=== PATIENT | female | born 1940 | race Caucasian/White ===

== ENCOUNTER 2022-10-28 18:05 | Emergency (ER) | payer MEDICARE, OTHER, SELFPAY ==
[2022-10-28 18:09] VITALS: BP 158/67; PULSE 84; RESP 20; TEMP 36.6; O2SAT 97; BMI 20.3
--- NOTE | 2022-10-28 18:24 | PC.NURSE ---
Pt has dialysis port that has dual lumen in right upper chest. Pt had dialysis today and the blue line is clear but the red line has blood noted in it and the blue cap was loose and pt had small amount of blood coming from cap. Pt and SO concerned as theythought that the blood was coming from the insertion site. Tubing was clamped and blue cap tightened and blood stopped leaking. Pt very relieved at this. Blood was noted still in tube.
--- NOTE | 2022-10-28 18:54 | ED.GENADUL1 ---
HPI - General Adult General Chief complaint: Recheck/Abnormal Lab/Rx Stated complaint: medical devise check Time Seen by Provider: 10/28/22 18:07 Source: patient and family Mode of arrival: walk-in Limitations: no limitations History of Present Illness HPI narrative: patient is in 82-year-old female who presents to the emergency department for bleeding from her dialysis catheter. Patient had dialysis today at noon regularly, she noted just prior to arrival that there was bleeding from the red arterial catheter tubing. On my evaluation, nursing has tightened the end cap to the catheter and bleeding has stopped. There is a small amount of red blood present in the arterial catheter. Clamp is in place. Patient has no other focal medical complaints. Related Data Allergies Allergy/AdvReac Type Severity Reaction Status Date / Time Penicillins Allergy Intermediate Verified 10/28/22 18:17 Review of Systems ROS Constitutional Denies: fever or chills Ears, nose, mouth, and throat Denies: throat pain Cardiovascular Denies: chest pain Respiratory Denies: shortness of breath or cough Gastrointestinal Denies: nausea or vomiting Genitourinary Denies: painful urination Musculoskeletal Denies: back pain Integumentary/Breast Denies: rash Exam Narrative Exam Narrative: Gen.: Awake, alert, in no distress Head: Normocephalic, atraumatic ENT: Moist mucous membranes Respiratory: No respiratory distress, dialysis catheter to the right upper chest with blood in the arterial catheter, no bleeding from the catheter at this time. Venous catheter is clear, no leaking or drainage. Insertion site in the right upper chest with bandage intact, no evidence of removal of the dialysis catheter insertion site or bleeding at the area. Extremities: Moves extremities equally Psych: Normal mood and affect Neuro: No focal neuro deficit Skin: Warm, dry, intact Constitutional Vital Signs, click to edit/add: Last Vital Signs Temp 98 F 10/28/22 18:09 Pulse 84 10/28/22 18:09 Resp 20 10/28/22 18:09 BP 158/67 H 10/28/22 18:09 Pulse Ox 97 10/28/22 18:09 O2 Del Method Room Air 10/28/22 18:09 Course Vital Signs Vital signs: Vital Signs Temperature 98 F 10/28/22 18:09 Pulse Rate 84 10/28/22 18:09 Respiratory Rate 20 07/26/23 18:09 Blood Pressure 158/67 H 10/28/22 18:09 Pulse Oximetry 97 10/28/22 18:09 Oxygen Delivery Method Room Air 10/28/22 18:09 Temperature 98 F 10/28/22 18:09 Pulse Rate 84 10/28/22 18:09 Respiratory Rate 20 10/28/22 18:09 Blood Pressure 158/67 H 10/28/22 18:09 Pulse Oximetry 97 10/28/22 18:09 Oxygen Delivery Method Room Air 10/28/22 18:09 Medical Decision Making MDM Narrative Medical decision making narrative: we discussed the case with dialysis nurse on-call for [facility]. She recommended to prevent clotting in the arterial catheter, aspirate ten mL's of blood from the arterial line, flushed with saline and flushed with heparin at a 1000 unit per mL concentration for a total of 2 mL's flushed in the catheter. This was performed without difficulty, no residual bleeding and the patient is discharged to follow-up with dialysis Center as scheduled for further dialysis in two days. Return to the Emergency Room if symptoms change or worsen. Medical Records Medical records reviewed: Yes I reviewed the patient's medical records Discharge Plan Discharge Chief Complaint: Recheck/Abnormal Lab/Rx Clinical Impression: Encounter for dialysis catheter care Patient Disposition: Home, Self-Care Time of Disposition Decision: 18:47 Condition: Good Instructions: Hemodialysis (DC) Additional Instructions: Follow for regular dialysis care with the dialysis center Stand Alone Forms: Portal Instructions Referrals: Adelina Lizama MD [Primary Care Provider] - 1 week
[2022-10-28] MEDS: HEPARIN SODIUM (PORCINE) 5,000 UNIT/ML VIAL 5000 UNIT IV (19:04)
== END 2022-10-28 19:15 | disposition home or self-care (01) ==
PROVIDERS: Emergency Provider Emergency Medicine; PCP Family Medicine
DX: Z49.01 Encounter for fitting and adjustment of extracorporeal dialysis catheter (principal)
CPT/HCPCS: 96374; 99284

== ENCOUNTER 2022-11-09 13:44 | Outpatient (REF) | payer MEDICARE, SELFPAY ==
[2022-11-09 13:56] LABS: Hemoglobin 12.9 g/dL (12.0-16.0)
== END 2022-11-09 13:45 | disposition home or self-care (01) ==
LOC: LAB 13:44
PROVIDERS: PCP Family Medicine; Visit Provider Internal Medicine Nephrology
DX: K92.1 Melena (principal)
CPT/HCPCS: 36415; 85018

== ENCOUNTER 2023-01-30 16:52 | Emergency (ER) | payer MEDICARE, OTHER, SELFPAY ==
[2023-01-30 16:58] VITALS: BP 87/52; PULSE 77; RESP 20; TEMP 37.1; O2SAT 100; BMI 20.8
--- NOTE | 2023-01-30 17:08 | XR_ITS ---
[address] [address] Patient Name: MEAGHAN HENRY MRN: [id number] date: 1940 Sex: F Assigned Patient Location: ER Current Patient Location: ER Accession/Order Number: [id number] Exam Date: 01/30/2023 17:10 Report Date: 01/30/2023 18:44 At the request of: AFIA SILVA Procedure: XR forearm LT 2V EXAM: XR forearm LT 2V, XR wrist LT min 3V, XR hand LT min 3V HISTORY: pain COMPARISON: None. TECHNIQUE: AP, lateral, radiographs of the forearm labeled left , PA, lateral, oblique radiographs of the wrist left. PA, lateral, oblique radiographs of the hand labeled left FINDINGS: Left forearm: Chondrocalcinosis at the triangular fibrocartilage, at the distal radiocarpal joint, about the carpal row. Surgical clips about the elbow. Demineralization. No acute fracture or dislocation. Olecranon enthesophyte. Left wrist: Chondrocalcinosis at the triangular fibrocartilage about the carpal row and at the radiocarpal joint. Joint space loss and osteophytes of the first carpometacarpal joint. Demineralization. Atherosclerotic vascular calcifications. No acute fracture or dislocation. There is soft tissue swelling about the wrist. Left hand: Chondrocalcinosis at the triangular fibrocartilage about the carpal row and at the radiocarpal joint. Joint space loss and osteophytes of the first carpometacarpal joint. Joint space loss of the DIP joints. Osteophytes of the first interphalangeal joint. Demineralization. Atherosclerotic vascular calcifications. No acute fracture or dislocation. There is soft tissue swelling about the wrist. XR/XR forearm LT 2V IMPRESSION: Left forearm: 1. No acute osseous abnormality. Left wrist: 1. Chondrocalcinosis which can be seen with hypercalcemic states and CPPD arthropathy. 2. Mild degenerative changes of the first carpometacarpal joint. Left hand: 1. No acute osseous abnormality. 2. Mild degenerative change. Electronically authenticated by: LUDMILA MENDOZA Date: 01/30/2023 18:44
--- NOTE | 2023-01-30 17:08 | XR_ITS ---
The [address] [address] Patient Name: MEAGHAN HENRY MRN: [id number] date: 1940 Sex: F Assigned Patient Location: ER Current Patient Location: ER Accession/Order Number: [id number] Exam Date: 01/30/2023 17:10 Report Date: 01/30/2023 18:44 At the request of: AFIA SILVA Procedure: XR wrist LT min 3V EXAM: XR forearm LT 2V, XR wrist LT min 3V, XR hand LT min 3V HISTORY: pain COMPARISON: None. TECHNIQUE: AP, lateral, radiographs of the forearm labeled left , PA, lateral, oblique radiographs of the wrist left. PA, lateral, oblique radiographs of the hand labeled left FINDINGS: Left forearm: Chondrocalcinosis at the triangular fibrocartilage, at the distal radiocarpal joint, about the carpal row. Surgical clips about the elbow. Demineralization. No acute fracture or dislocation. Olecranon enthesophyte. Left wrist: Chondrocalcinosis at the triangular fibrocartilage about the carpal row and at the radiocarpal joint. Joint space loss and osteophytes of the first carpometacarpal joint. Demineralization. Atherosclerotic vascular calcifications. No acute fracture or dislocation. There is soft tissue swelling about the wrist. Left hand: Chondrocalcinosis at the triangular fibrocartilage about the carpal row and at the radiocarpal joint. Joint space loss and osteophytes of the first carpometacarpal joint. Joint space loss of the DIP joints. Osteophytes of the first interphalangeal joint. Demineralization. Atherosclerotic vascular calcifications. No acute fracture or dislocation. There is soft tissue swelling about the wrist. XR/XR wrist LT min 3V IMPRESSION: Left forearm: 1. No acute osseous abnormality. Left wrist: 1. Chondrocalcinosis which can be seen with hypercalcemic states and CPPD arthropathy. 2. Mild degenerative changes of the first carpometacarpal joint. Left hand: 1. No acute osseous abnormality. 2. Mild degenerative change. Electronically authenticated by: LUDMILA MENDOZA Date: 01/30/2023 18:44
--- NOTE | 2023-01-30 17:08 | XR_ITS ---
The [address] [address] Patient Name: MEAGHAN HENRY MRN: [id number] date: 1940 Sex: F Assigned Patient Location: ER Current Patient Location: ER Accession/Order Number: [id number] Exam Date: 01/30/2023 17:10 Report Date: 01/30/2023 18:44 At the request of: AFIA SILVA Procedure: XR hand LT min 3V EXAM: XR forearm LT 2V, XR wrist LT min 3V, XR hand LT min 3V HISTORY: pain COMPARISON: None. TECHNIQUE: AP, lateral, radiographs of the forearm labeled left , PA, lateral, oblique radiographs of the wrist left. PA, lateral, oblique radiographs of the hand labeled left FINDINGS: Left forearm: Chondrocalcinosis at the triangular fibrocartilage, at the distal radiocarpal joint, about the carpal row. Surgical clips about the elbow. Demineralization. No acute fracture or dislocation. Olecranon enthesophyte. Left wrist: Chondrocalcinosis at the triangular fibrocartilage about the carpal row and at the radiocarpal joint. Joint space loss and osteophytes of the first carpometacarpal joint. Demineralization. Atherosclerotic vascular calcifications. No acute fracture or dislocation. There is soft tissue swelling about the wrist. Left hand: Chondrocalcinosis at the triangular fibrocartilage about the carpal row and at the radiocarpal joint. Joint space loss and osteophytes of the first carpometacarpal joint. Joint space loss of the DIP joints. Osteophytes of the first interphalangeal joint. Demineralization. Atherosclerotic vascular calcifications. No acute fracture or dislocation. There is soft tissue swelling about the wrist. XR/XR hand LT min 3V IMPRESSION: Left forearm: 1. No acute osseous abnormality. Left wrist: 1. Chondrocalcinosis which can be seen with hypercalcemic states and CPPD arthropathy. 2. Mild degenerative changes of the first carpometacarpal joint. Left hand: 1. No acute osseous abnormality. 2. Mild degenerative change. Electronically authenticated by: LUDMILA MENDOZA Date: 01/30/2023 18:44
--- NOTE | 2023-01-30 17:08 | ED.UPPEXIN1 ---
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 as well as another 1 in the right and the patient have dialysis through the Jonathan catheter Related Data Home Medications Medication Instructions Recorded Confirmed amlodipine 2.5 mg tablet 2.5 mg PO Q24H 01/30/23 01/30/23 apixaban 2.5 mg tablet (Eliquis) 2.5 mg PO Q12H 01/30/23 01/30/23 furosemide 40 mg tablet 40 mg PO Q12H 01/30/23 01/30/23 hydrocodone 5 mg-acetaminophen 325 0.5 tab PO Q12H 01/30/23 01/30/23 mg tablet levothyroxine 25 mcg tablet 25 mcg PO Q24H 01/30/23 01/30/23 rosuvastatin 5 mg tablet 5 mg PO Q24H 01/30/23 01/30/23 sevelamer carbonate 800 mg tablet 800 mg PO Q24H 01/30/23 01/30/23 Previous Rx's Medication Instructions Recorded prednisone 20 mg tablet 40 mg PO DAILY 5 days #10 tabs 01/30/23 Allergies Allergy/AdvReac Type Severity Reaction Status Date / Time Penicillins Allergy Intermediate Verified 10/28/22 18:17 Review of Systems ROS Status of ROS 10 or more systems reviewed and unremarkable except as noted in history and below Exam Narrative Exam Narrative: Nurses notes and vital signs reviewed and patient is not hypoxic. General: Well-appearing and in no apparent distress. Skin: Warm, dry, no pallor noted. No rash. Head: Normocephalic, atraumatic. Neck: Supple, non-tender. Eye: Pupils are equal, round and EOMI. No scleral icterus. Ears, Nose, Mouth, and Throat: TM are clear, no nasal mucosal hypertrophy. Oral mucosa is moist, no posterior oropharynx erythema, uvula is mid-line Cardiovascular: Regular Rate and Rhythm without murmur, gallop or rub. Respiratory: No accessory muscle use or respiratory distress. Lungs are clear to auscultation, no wheezing, rales or rhonchi Chest Wall: no tenderness Back: No midline thoracic or lumbar vertebral tenderness. No CVA tenderness Musculoskeletal: There is tenderness upon palpation of the left wrist mostly at the distal aspect of the forearm there is no ecchymosis there is mild edema and there is a good radial pulse with no vascular injury and good capillary refill GI: Abdomen is soft, non-distended. Normal bowel sounds. No masses appreciated. No tenderness to palpation. No rebound, guarding, or rigidity noted. Neurological: A&O x4. No cranial nerve dysfunction observed. No truncal ataxia. Moves all extremities. Sensation intact. Psychiatric: Cooperative and interactive. Normal mood and affect. Constitutional Vital Signs, click to edit/add: Last Vital Signs Temp 98.8 F 01/30/23 16:58 Pulse 86 01/30/23 18:58 Resp 16 01/30/23 18:58 BP 170/96 H 01/30/23 18:58 Pulse Ox 96 01/30/23 18:58 O2 Del Method Room Air 01/30/23 16:58 Course Vital Signs Vital signs: Vital Signs Temperature 98.8 F 01/30/23 16:58 Pulse Rate 77 01/30/23 16:58 Respiratory Rate 20 01/30/23 16:58 Blood Pressure 87/52 L 01/30/23 16:58 Pulse Oximetry 100 01/30/23 16:58 Oxygen Delivery Method Room Air 01/30/23 16:58 Temperature 98.8 F 01/30/23 16:58 Pulse Rate 86 01/30/23 18:58 Respiratory Rate 16 01/30/23 18:58 Blood Pressure 170/96 H 01/30/23 18:58 Pulse Oximetry 96 01/30/23 18:58 Oxygen Delivery Method Room Air 01/30/23 16:58 MDM - Extremity Injury (Upper) MDM Narrative Medical decision making narrative: The patient x-ray of the left wrist hand and the forearm showed no acute pathology Right now the patient will be treated mostly as possible arthritis. She had Toradol initially in the ER after which her pain is better she will have a Velcro splint applied and she was started on prednisone she will continue taking her pain meds at home Referred to orthopedic as outpatient case needed The patient is to follow up with primary care physician in next 2-3 days or to return to the emergency department should any of the signs or symptoms worsen or new symptoms develop. The patient agrees with the following Diagnosis and Treatment plan and the patient will be discharged home. Discharge Plan Discharge Chief Complaint: Extremity Injury, Upper Clinical Impression: Arthritis of wrist Time of Disposition Decision: 18:55 Condition: Good Prescriptions / Home Meds: New prednisone 20 mg tablet 40 mg PO DAILY 5 Days Qty: 10 0RF No Action amlodipine 2.5 mg tablet 2.5 mg PO Q24H Eliquis 2.5 mg tablet 2.5 mg PO Q12H furosemide 40 mg tablet 40 mg PO Q12H hydrocodone-acetaminophen 5-325 mg tablet 0.5 tab PO Q12H levothyroxine 25 mcg tablet 25 mcg PO Q24H rosuvastatin 5 mg tablet 5 mg PO Q24H sevelamer carbonate 800 mg tablet 800 mg PO Q24H Instructions: Arthritis (ED) Stand Alone Forms: Portal Instructions Referrals: Adelina Lizama MD [Primary Care Provider] - 1 week Eliseo Navarro MD [Physician] - 1 week
[2023-01-30] MEDS: KETOROLAC TROMETHAMINE 30 MG/ML VIAL 15 MG IM (17:21)
[2023-01-30 17:41] VITALS: BP 145/96; PULSE 76; RESP 18; O2SAT 96
[2023-01-30 18:58] VITALS: BP 170/96; PULSE 86; RESP 16; O2SAT 96
== END 2023-01-30 19:09 | disposition home or self-care (01) ==
PROVIDERS: Emergency Provider Emergency Medicine; PCP Family Medicine
DX: M19.032 Primary osteoarthritis, left wrist (principal); Z99.2 Dependence on renal dialysis; Z79.899 Other long term (current) drug therapy; Z79.890 Hormone replacement therapy
CPT/HCPCS: 73090; 73110; 73130; 96372; 99285

== ENCOUNTER 2023-04-16 12:55 | Outpatient (OUT) | payer MEDICARE, OTHER, SELFPAY ==
--- OUTSIDE RECORDS SUMMARY | 2023-04-16 13:02 | XMS_ITS | CCD ---
Author Name Unknown Address [address] [place] [address] Organization [facility] Team Providers Care Expressive Therapist Name Role Phone Aurelio Wheeler Unavailable Unavail able Liam, Aurelio Snowden Unavailable Unavail able Felipe Reyes Unavailable Unavailable Luisito Jones Unavailable Unavailable Liam, Aurelio Snowden Unavailable Unavail able Liam, Aurelio Snowden Unavailable Unavail able Felipe Reyes Unavailable Unavailable MD Felipe Reyes Primary Care Provider DO Delgado Eagle Emergency Provider MD Felipe Reyes Primary Care Provider DO Delgado Eagle Emergency Provider MD Ken Haas Attending Provider MD Eva Goodman Other Provider FELIPE REYES Primary Care Physician Delfino Chan Attending Unavailable MD Felipe Reyes Primary Care Provider Roxanne Mon Unavailable Ken Haas Unavailable MD Felipe Reyes Primary Care Provider MARIPOSA Yancey Emergency Provider MD Дмитрий Her Admit Provider MD Дмитрий Her Attending Provider MD Uma Zhang Other Provider MD Ambar Galvan Other Provider MD Felipe Reyes Primary Care Provider MARIPOSA Yancey Emergency Provider MD Дмитрий Her Admit Provider MD Leatha Imad Other Provider MD Mandy Aziz Other Provider MD Aj Ragland Attending Provider MD Ken Haas Attending Provider Isa Zhangad Unavailable JUNC, DR BRICE Admitting Unavailable MISC, DR BRICE Attending Unavailable MISC, DR BRICE Consulting Unavailable MISC, DR BRICE Primary Care Unavailable MISC, DR BRICE Primary Care Unavailable ROSANNE, EVA Admitting Unavailable ROSANNE, EVA Attending Unavailable ROSANNE, EVA Consulting Unavailable MISC, DR BRICE Primary Care Unavailable BAKHOUS, RUTHYIZ Admitting Unavailable BAKGEEN, AMBAR Attending Unavailable MANDY, AMBAR Consulting Unavailable KANG MCELROY Attending Unavailable KANG MCELROY Consulting Unavailable MISC, DR BRICE Primary Care Unavailable KANG MCELROY Admitting Unavailable Renae Ayers Consulting Unavailable ZOILA GREGORY Consulting Unavailable ERIC, DR FELIPE Fish Primary Care Unavailable SHAYLAEBEVGENY, DR YARA Smart Consulting Unavailable PAY ., DR KO Admitting Unavailable PAY ., DR KO Attending Unavailable PAY ., DR KO Consulting Unavailable MADISON NARANJO Consulting Unavailable ZIEBER, DR YARA Smart Consulting Unavailable MISC, DR BRICE Primary Care Unavailable HERMILO Matthew, WES Admitting Unavailable HERMILO Matthew, WES Attending Unavailable HERMILO Matthew, WES Consulting Unavailable MD Felipe Reyes Primary Care Provider MD Ken Haas Attending Provider Ken Haas Admitting Unavailable Rosanne, Eva Consulting Unavailable Felipe Reyes Primary Care Unavailable Ken Haas Attending Unavailable Ken Haas Admshadi Unavailable Felipe Reyes Primary Care Unavailable Ken Haas Attending Unavailable Felipe Reyes Primary Care Unavailable Ken Haas Attending Unavailable Ken Haas Admitting Unavailable Ken Haas Admitting Unavailable Felipe Reyes Primary Care Unavailable Ken Haas Attending Unavailable Felipe Reyes Primary Care Unavailable Ken Haas Attending Unavailable Ken Haas Admitting Unavailable Ken Haas Admitting Unavailable Felipe Reyes Primary Care Unavailable Ken Haas Attending Unavailable Delgado Eagle Attending Unavailable Felipe Reyes Primary Care Unavailable Delgado Eagle Admitting Unavailable Ken Haas Admitting Unavailable Felipe Reyes Primary Care Unavailable Ken Haas Attending Unavailable Ken Haas Admitting Unavailable Felipe Reyes Primary Care Unavailable Ken Haas Attending Unavailable Aj Ragland Attending Unavailable Asaad, Imad Consulting Unavailable Дмитрий Her Admitting Unavailable Felipe Reyes Primary Care Unavailable Ambar Galvan Consulting Unavailable Allergies Allergy Classification Reported Allergen(s) Allergy Type Date of Onset Reaction(s) Facility (3 sources) penicillin; Translations: [penicillin] Drug Allergy AOF, Unknown cause [facility] Repository (12 sources) Penicillins; Translations: [Penicillins] Allergy to substance 3 [facility] (10 sources) Penicillin G Drug Allergy [facility] Dial2Do Other Medications Current Medications Medication Drug Class(es) Dates Sig (Normalized) Sig (Original) acetaminophen 325 mg oral tablet (8 sources) Start: 03-05-2022 take 2 tablets by mouth every four hours Acetaminophen (Tylenol) 325 mg Tablet Active 650 MG PO Q4H March 05, 2022 1:00am acetaminophen 325 mg / HYDROcodone bitartrate 5 mg oral tablet (20 sources) Opioid Agonist Start: 09-03-2022 take 1 tablet by mouth every four hours Hydrocodone-Acetami nophen (Riley) 5-325 mg Tablet Active 1 TAB PO Q4H September 03, 2022 12:00am Start: 12-22-2018 End: 03-05-2022 take 1 tablet by mouth every six hours Hydrocodone-Acetaminophen Discontinued 1 TAB PO Q6H 20 5 December 22, 2018 March 05, 2022 4:46pm Start: 12-22-2018 End: 01-12-2019 Hydrocodone-Acetaminophen Di scontinued 5 MG PO December 22, 2018 12:00am January 12, 2019 9:56am Start: 12-13-2018 End: 01-12-2019 take 5-325 mg by mouth twice daily Hydrocodone-Acetaminophen Discontinued 5 - 325 MG PO Twice daily December 13, 2018 12:00am January 12, 2019 9:57am amLODIPine 5 mg oral tablet (5 sources) Dihydropyridine Calcium Channel Julio Start: 07-24-2022 take 5 mg by mouth once daily Amlodipine Active 5 MG PO Daily July 24, 2022 12:00am calcitriol 0.37815 mg oral capsule (20 sources) Vitamin D3 Analog Start: 09-03-2022 take 0.25 ug by mouth once daily Calcitriol Active 0.25 MCG PO Daily September 03, 2022 12:00am Start: 12-13-2018 End: 09-03-2022 take 0.25 ug by mouth once daily in the morning Calcitriol Discontinued 0.25 MCG PO Every morning December 13, 2018 12:00am September 03, 2022 6:08am Start: 12-13-2018 take 0.5 ug by mouth once afshan y Calcitriol Active 0.5 MCG PO Daily December 12, 2018 11:00pm Start: 09-14-2017 calcitriol 0.2 5 mcg Cap 0.25 microgram = 1 cap(s), Oral, Daily, Refills(s) 0, Prophylaxis Start Date: 09/14/17 Status: Ordered take 1 capsule by [facility] every twenty-four hours Calcitriol 0.5 MCG 1 capsule Orally Once a day for 90 day(s) Active cinnamon preparation 500 mg oral tablet (10 sources) Non-Standardized Food Allergenic Extract take 500 mg by mouth once daily Cinnamon 500 MG as directed Orally ONCE A DAY Active diclofenac sodium 0.01 mg/mg topical gel (6 sources) Nonsteroidal Anti-inflammatory Drug Start: 04-22-19 apply 2 g topically four times daily Diclofenac Sodium Active 2 GM TOPICAL Four times daily April 22, 2022 1:00am right hip and right knee Start: 04-22-2022 apply 1 g topically four times daily Diclofenac Sodium Active 1 GM TOPICAL Four times daily April 22, 2022 1:00am right hip and right knee docusate sodium 100 mg oral capsule (8 sources) Start: 03-05-2022 take 1 capsule by mouth twice daily Docusate Sodium (Colace) 100 mg Capsule Active 100 MG PO Twice daily March 05, 2022 1:00am furosemide 40 mg oral tablet (1 source) Loop Diuretic Start: 11-26-2022 take 40 mg by mouth twice daily Furosemide Active 40 MG PO Twice daily November 26, 2022 12:00am levothyroxine sodium 0.025 mg oral tablet (9 sources) l-Thyroxine Start: 03-05-2022 take 25 ug by mouth once daily Levothyroxine Active 25 MCG PO Daily March 05, 2022 1:00am Start: 09-15-2017 take 1 tablet by kathryn th once daily Synthroid 50 mcg Tab 50mcg, Oral, Daily, Refills(s) 0, Thyroid Start Date: 09/15/17 Status: Ordered lidocaine 0.04 mg/mg medicated patch (8 sources) Antiarrhythmic, Amide Local Anesthetic Start: 03-05-2022 apply 1 dose topically twice daily Lidocaine (Aspercreme (Lidocaine)) 4 % Adhesive Patch,Medicated Active 1 PATCH TOPICAL Twice daily March 05, 2022 1:00am magnesium oxide 400 mg oral tablet (5 sources) take 1 tablet by mouth every twenty-four hours Magnesium Oxide 400 MG 1 Tablet Orally Once a day for 90 day(s) Active meclizine hydrochloride 25 mg oral tablet (11 sources) Antiemetic Start: 09-14-2017 take 25 mg by mouth once daily as needed for nausea meclizine 25 mg, Oral, Daily, PRN as needed for nausea/vomiting, Refills(s) 0, Nausea Start Date: 09/14/17 Status: Ordered take 1 tablet by kathryn th every eight hours as needed Meclizine HCl 25 MG 1 tablet as needed Orally EVERY 8 HRS PRN Active meloxicam 15 mg oral tablet (1 source) Nonsteroidal Anti-inflammatory Drug Start: 09-14-2017 meloxicam 15 mg, Oral, Refills(s) 0, Inflammation Start Date: 09/14/17 Status: Ordered methocarbamol 500 mg oral tablet (10 sources) Muscle Relaxant take 2 tablets by mouth every eight hours Methocarbamol 500 MG 2 TABLETS Orally THREE TIMES A DAY Active Multi Vitamin/Minerals (10 sources) Multi Vitamin/Minerals Active nitroglycerin 0.4 mg sublingual tablet (8 sources) Nitrate Vasodilator Start: 03-05-2022 Nitroglycerin Active 0.4 MG SUBLINGUAL Q5M March 05, 2022 1:00am do not exceed 3 doses per episode omeprazole 40 mg delayed release oral capsule (1 source) Proton Pump Inhibitor Start: 09-15-2017 take 1 capsule by mouth once daily omeprazole 40 mg Cap-DR 40 mg = 1 cap(s), Oral, Daily, # 30 cap(s), Refills(s) 2, Pharmacy: [facility]/pharmacy #[id number] Start Date: 09/15/17 Status: Ordered rosuvastatin calcium 5 mg oral tablet (13 sources) HMG-CoA Reductase Inhibitor Start: 03-05-2022 take 5 mg by mouth once daily at bedtime Rosuvastatin Active 5 MG PO Daily at bedtime March 05, 2022 1:00am sevelamer carbonate 800 mg oral tablet (13 sources) Phosphate Binder Start: 03-05-2022 take 1600 mg by mouth at mealtime Sevelamer Carbonate Active 1600 MG PO before meals March 05, 2022 1:00am must administer with a meal/food Start: 03-05-2022 take 800 mg by mouth three times daily at mealtime Sevelamer Carbonate Active 800 MG PO Three times daily March 05, 2022 12:00am must administer with a meal/food Sevelamer Carbon ate Active Vitamin D3 (1 source) Start: 09-14-2017 Vitamin D3 50, 000 International_Unit, Oral, qWeek, Refills(s) 0, Prophylaxis Start Date: 09/14/17 Status: Ordered Completed/Discontinued Medications Medication Drug Class(es) Dates Sig (Normalized) Sig (Original) acetaminophen 325 mg / oxyCODONE hydrochloride 5 mg oral tablet (11 sources) Opioid Agonist Start: 04-22-2022 End: 04-22-2022 Oxycodone-Acetamino phen Discontinued TAB TABLET April 22, 2022 1:00am April 22, 2022 8:22am Start: 03-20-2022 take 1 tablet by kathryn th every six hours oxyCODONE-Acetaminophen 5-325 MG 1 table t as needed Orally every 6 hrs for 7 days Mar, Active [id number] actuat albuterol 0.09 mg/actuat metered dose inhaler (10 sources) beta2-Adrenergic Agonist Start: 12-20-2018 End: 03-05-2022 take 1 puff(s) by inhalation every four hours Albuterol Sulfate (Proair Hfa) 90 mcg/actuation Hfa Aerosol Inhaler Discontinued 2 PUFF INHALATION Every 4 hours December 20, 2018 12:00am March 05, 2022 4:44pm aluminum hydroxide 80 mg/ml / magnesium hydroxide 80 mg/ml / simethicone 8 mg/ml oral suspension (8 sources) Start: 03-05-2022 End: 04-22-2022 take 1 mL by mouth four times daily Alum-Mag Hydroxide-Simeth Discontinued 30 ML PO Four times daily March 05, 2022 1:00am April 22, 2022 8:22am apixaban 2.5 mg oral tablet (20 sources) Factor Xa Inhibitor Start: 03-05-2022 End: 09-03-2022 Apixaban (Eliquis) 2.5 mg tablet Discontinued MG TABLET July 24, 2022 12:00am September 03, 2022 6:07am atropine sulfate 0.025 mg / diphenoxylate hydrochloride 2.5 mg oral tablet (20 sources) Anticholinergic, Cholinergic Muscarinic Antagonist, Antidiarrheal Start: 12-22-2018 End: 01-12-2019 take 2.5 mg by mouth every eight hours Diphenoxylate-Atr opine Discontinued 2.5 MG PO Every 8 hours December 22, 2018 12:00am January 12, 2019 9:59am Start: 12-13-2018 End: 03-05-2022 take 1 tablet by mouth four times daily Diphenoxylate-Atropine Discontinued 1 TA B PO Four times daily December 13, 2018 12:00am March 05, 2022 4:45pm Start: 09-14-2017 atropine-diphe noxylate 2.5-0.025mg, Oral, Refill(s) 0, Spasm Start Date: 09/14/17 Status: Ordered calcium acetate 667 mg oral capsule (20 sources) Start: 12-22-2018 End: 03-05-2022 take 667 mg by mouth once daily Calcium Acetate(Phosphat Bind) Discontinued 667 MG PO Daily December 22, 2018 12:00am March 05, 2022 4:46pm Start: 12-13-2018 End: 12-20-2018 take 667 mg by mouth three times daily Calcium Acetate(Phosphat Bind) Discontinued 667 MG PO Three times daily December 13, 2018 12:00am December 20, 2018 2:36pm cinnamon bark 500 mg oral capsule (10 sources) Start: 12-20-2018 End: 03-05-2022 take 1 capsule by mouth once daily Cinnamon Bark (Cinnamon) 500 mg Capsule Discontinued 500 MG PO Daily December 20, 2018 12:00am March 05, 2022 4:45pm Multivitamin,Tx-[place] als (Multi-Vitamin Hp/Minerals) Capsule (10 sources) Start: 12-20-2018 End: 03-05-2022 take 1 capsule by mouth once daily Multivitamin,Tx-Minerals (Multi-Vitamin Hp/Minerals) Capsule Discontinued 1 CAP PO Daily December 20, 2018 12:00am March 05, 2022 4:45pm Start: 12-20-2018 End: 03-05-2022 take 1 capsule by mouth once daily Multivitamin,Tx-Minerals (Multi-Vitamin Hp/Minerals) Capsule Discontinued 1 CAP PO Daily December 19, 2018 11:00pm March 05, 2022 3:45pm Start: 12-20-2018 take 1 capsule by mo ut once daily Multivitamin,Tx-Minerals (Multi-Vitamin Hp/Minerals) Capsule Active 1 CAP PO Daily December 19, 2018 11:00pm Start: 12-20-2018 take 1 capsule by mo uth once daily Multivitamin,Tx-Minerals (Multi-Vitamin Hp/Minerals) Capsule Active 1 CAP PO Daily December 20, 2018 12:00am oxyCODONE hydrochloride 10 mg oral tablet (8 sources) Opioid Agonist Start: 03-05-2022 End: 04-22-2022 take 10 mg by mouth at bedtime Oxycodone Discontinued 10 MG PO Bedtime March 05, 2022 1:00am April 22, 2022 8:21am polyethylene glycol 3350 93898 mg powder for oral solution (4 sources) Osmotic Laxative Start: 07-27-2022 End: 09-03-2022 Polyethylene Glycol 3350 (Miralax) 17 gram/dose powder Discontinued 4 GM PO Daily 119 July 27, 2022 12:00am September 03, 2022 6:08am polyethylene glycol 3350 [id number] mg / potassium chloride 2970 mg / sodium bicarbonate 6740 mg / sodium chloride 5860 mg / sodium sulfate 27274 mg powder for oral solution (6 sources) Osmotic Laxative Start: 08-06-2022 take 236 g by mouth once daily Golytely 236 GM as directed Orally ONCE DAILY for 1 days August, Not-Taking PROCRIT INJECTION - 1000 units (20 sources) Start: 02-16-2019 PROCRIT INJECT ION - 1000 units Feb, 1000 U Start: 02-02-2019 PROCRIT INJECT ION - 1000 units Jan, 1000 U Start: 01-19-2019 PROCRIT INJECT ION - 1000 units Jan, 1000 U Start: 12-08-2018 PROCRIT INJECT ION - 1000 units Dec, 1000 U sodium bicarbonate 325 mg oral tablet (15 sources) Start: 01-12-2019 End: 03-05-2022 take 1 tablet by mouth twice daily Sodium Bicarbonate Discontinued 1 TAB PO Twice daily January 12, 2019 12:00am March 05, 2022 4:45pm take 2 tablets by mo uth every eight hours Sodium Bicarbonate 650 MG 2 Tablet Orall y tid for 90 day(s) Active vitamin e 450 mg oral capsule (10 sources) Start: 12-22-2018 End: 03-05-2022 take 1000 [IU] by mouth once daily Vitamin E Discontinued 1000 UNIT PO Daily December 22, 2018 12:00am March 05, 2022 4:46pm zolpidem tartrate 10 mg oral tablet (16 sources) gamma-Aminobuty nirali Acid-ergic Agonist Start: 09-14-2017 End: 09-03-2022 take 10 mg by mouth once daily at bedtime Zolpidem Discontinued 10 MG PO Daily at bedtime December 13, 2018 12:00am September 03, 2022 6:08am take 1 tablet by kathryn every twenty-four hours Zolpidem Tartrate 5 MG 1 tablet at bedtime Orally Once a day Active Problems Active Problems Problem Classification Problem Date Documented Date Episodic/Chronic Asthma (10 sources) Asthma; Translations: [Asthma, unspecified] Chronic Chronic kidney disease (20 sources) Anemia of renal disease; Translations: [Chronic kidney disease, unspecified] Onset: 2 03-20-2022 Chronic Chronic kidney disease (1 source) Chronic kidney disease; Translations: [Hypertensive chronic kidney disease with stage 5 chronic kidney disease or end stage renal disease] Onset: 2 Complication of device; implant or graft (1 source) Hemorrhage due to any device, implant AND/OR graft; Translations: [Hemorrhage due to vascular prosthetic devices, implants and grafts, initial encounter] Onset: 3 Chronic Coronary atherosclerosis and other heart disease (1 source) Atherosclerotic heart disease of [place] coronary artery without angina pectoris; Translations: [ASHD AUGUSTINE CA W/O ANGINA PECTORIS] Onset: 3 Chronic Deficiency and other anemia (2 sources) Anemia in chronic kidney disease; Translations: [ANEMIA IN CHRONIC KIDNEY DISEASE] Onset: 2 Chronic Deficiency and other anemia (9 sources) Anemia; Translations: [Anemia, unspecified] 07-24-2022 Episodic Delirium, dementia, and amnestic and other cognitive disorders (1 source) Unspecified dementia without behavioral disturbance; Translations: [UNSP YANET UNS SEV W/O DSTRB ANXTY] Onset: 3 Chronic E Codes: Fall (2 sources) Fall on same level from slipping, tripping and stumbling with subsequent striking against other object, initial encounter; Translations: [Fall from bed, initial encounter] Onset: 2 Episodic E Codes: Unspecified (1 source) Activity, walking, marching and hiking; Translations: [ACTIVITY WALKING MARCHING AND HIKING] Onset: 3 Episodic Esophageal disorders (10 sources) Esophagitis; Translations: [Esophagitis, unspecified] Episodic Essential hypertension (7 sources) Hypertensive disorder; Translations: [Essential (primary) hypertension] Onset: 3 07-25-2022 Chronic Fluid and electrolyte disorders (10 sources) Hyperkalemia; Translations: [Hyperkalemia] 12-20-2018 Episodic Gastrointestinal hemorrhage (1 source) Gastrointestinal hemorrhage; Translations: [Gastrointestinal hemorrhage, unspecified] Onset: 3 Hypertension with complications and secondary hypertension (10 sources) 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; Translations: [Hypertensive chronic kidney disease with stage 5 chronic kidney disease or end stage renal disease] Chronic Nonspecific chest pain (10 sources) Non-cardiac chest pain; Translations: [Other chest pain] Episodic Other aftercare (1 source) Other retirement (current) drug therapy; Translations: [OTH TOOL CRIB ATTENDANT CURRENT DRUG THERAPY] Onset: 3 Episodic Other aftercare (1 source) group home (current) use of anticoagulants; Translations: [TOOL CRIB ATTENDANT CURRNT USE ANTICOAGULANTS] Onset: 3 Episodic Other circulatory disease (7 sources) History of cardiovascular surgery; Translations: [Presence of other vascular implants and grafts] 03-20-2022 Chronic Other circulatory disease (3 sources) Presence of other vascular implants and grafts; Translations: [Other postprocedural status] Onset: 2 03-20-2022 Chronic Other circulatory disease (4 sources) Arteriovenous fistula; Translations: [Arteriovenous fistula, acquired] Chronic Other circulatory disease (1 source) Arteriovenous fistula, acquired Chronic Other connective tissue disease (4 sources) Pain in right arm; Translations: [PAIN IN RIGHT ARM] Onset: 3 Episodic Other diseases of kidney and ureters (17 sources) Secondary hyperparathyroidism; Translations: [Secondary hyperparathyroidism of renal origin] 03-20-2022 Chronic Other diseases of kidney and ureters (5 sources) Secondary hyperparathyroidism of renal origin; Translations: [Secondary hyperparathyroidism (of renal origin)] Onset: 2 03-20-2022 Chronic Other gastrointestinal disorders (4 sources) Diarrhea; Translations: [Diarrhea, unspecified] 07-25-2022 Episodic Other injuries and conditions due to external causes (3 sources) Unspecified injury of head, initial encounter; Translations: [UNSPECIFIED INJURY HEAD INITIAL ENC] Onset: 3 Episodic Other nervous system disorders (7 sources) Postoperative pain ; Translations: [Other acute postprocedural pain] 03-20-2022 Episodic Other nutritional; endocrine; and metabolic disorders (10 sources) Hypomagnesemia; Translations: [Hypomagnesemia] Chronic Other nutritional; endocrine; and metabolic disorders (10 sources) Hyperphosphatemia; Translations: [Other disorders of phosphorus metabolism] Chronic Other nutritional; endocrine; and metabolic disorders (4 sources) Weight loss; Translations: [Abnormal weight loss] 07-25-2022 Episodic Spondylosis; intervertebral disc disorders; other back problems (1 source) Spondylosis without myelopathy or radiculopathy, lumbar region; Translations: [SPONDYLS W/O MYELO-/RADICULOP LUMB] Onset: 3 Chronic Superficial injury; contusion (2 sources) Contusion of scalp, initial encounter; Translations: [Contusion of right hip, initial encounter] Onset: 3 Episodic Unclassified (1 source) Other specified complication of vascular prosthetic devices, implants and grafts, initial encounter; Translations: [Other specified complication of vascular prosthetic devices, implants and grafts, initial encounter] Onset: 3 Unclassified (1 source) Encounter for preprocedural laboratory examination; Translations: [Encounter for preprocedural laboratory examination] Onset: 2 Unclassified (1 source) Encounter for other preprocedural examination; Translations: [Encounter for other preprocedural examination] Onset: 2 Past or Other Problems Problem Classification Problem Date Documented Da te Episodic/Chronic Bacterial infection; unspecified site (4 sources) Bacteremia; Translations: [BACTEREMIA] Onset: 01-19-2022 Episodic Deficiency and other anemia (6 sources) Anemia, unspecified; Translations: [Anemia, unspecified] Onset: 07-26-2022 07-24-2022 Episodic Gastrointestinal hemorrhage (7 sources) Hematochezia; Translations: [Melena] Onset: 07-26-2022 07-25-2022 Episodic Other gastrointestinal disorders (3 sources) Diarrhea, unspecified; Translations: [Diarrhea] Onset: 07-26-2022 07-27-2022 Episodic Other non-traumatic joint disorders (3 sources) Pain in left knee; Translations: [PAIN IN LEFT KNEE] Onset: 02-25-2022 Episodic Other non-traumatic joint disorders (1 source) Effusion, left knee; Translations: [EFFUSION LEFT KNEE] Onset: 03-03-2022 Episodic Other nutritional; endocrine; and metabolic disorders (3 sources) Abnormal weight loss; Translations: [Loss of weight] Onset: 07-26-2022 07-27-2022 Episodic Other screening for suspected conditions (not mental disorders or infectious disease) (1 source) Abnormal finding of blood chemistry, unspecified; Translations: [Abnormal finding of blood chemistry, unspecified] Onset: 01-09-2022 Episodic Sprains and strains (1 source) Sprain of unspecified site of left knee, initial encounter; Translations: [SPRAIN UNS SITE LT KNEE INITIAL] Onset: 03-03-2022 Episodic Results Test Name Value Interpretation Reference Range Facility Basic Metabolic Panelon 08 Anion gap [Moles/Vol] 13.9 mmol/L Normal 6.0-15.0 [facility] Comment on above: Performed By: #### C BC #### [facility] [address] [place] [address] [place] Calcium [Mass/Vol] 9.1 mg/dL Normal 8.6-10.3 [facility] Comment on above: Performed By: #### C BC #### [facility] [address] [place] [address] [place] Chloride [Moles/Vol] 94 mmol/L Low 98-107 [facility] Comment on above: Performed By: #### C BC #### [facility] [address] CO2 [Moles/Vol] 25.8 mmol/L Normal 21.0-31.0 [facility] Comment on above: Performed By: #### C BC #### [facility] [address] Creatinine [Mass/Vol] 3.51 mg/dL High 0.60-1.20 [facility] Comment on above: Performed By: #### C BC #### [facility] [address] [place] [address] [place] Creatinine Clr Calc Pharmacy 9.04 [facility] Comment on above: Result Comment: PERF ORMED BY: [place] [address] PATHOLOGIST DO ALL OPERATOR XAVIER PINEDA M.D. Performed By: #### C BC #### [facility] [address] [place] [address] [place] GFR/1.73 sq M.predicted MDRD (S/P/Bld) [Vol rate/Area] 12.389 mL/min/{1.73_m2} Normal [facility] Comment on above: Performed By: #### C BC #### [facility] [address] Glucose [Mass/Vol] 74 mg/dL Normal 70-100 [facility] Comment on above: Result Comment: [place] Glucose Reference Range is dependent on time and content of last meal. Glucose of more than 200 mg/dL in a nonstressed, ambulatory subject supports the diagnosis of Diabetes Mellitus. ADA recommended reference range Performed By: #### C BC #### [facility] [address] [place], [place] [address] [place] Potassium [Moles/Vol] 3.7 mmol/L Normal 3.5-5.1 [facility] Comment on above: Performed By: #### C BC #### [facility] [address] Sodium [Moles/Vol] 130 mmol/L Low 136-145 [facility] Comment on above: Performed By: #### C BC #### [facility] [address] Urea nitrogen [Mass/Vol] 26 mg/dL High 7-25 [facility] Comment on above: Performed By: #### C BC #### [facility] [address] Basophils Auto (Bld) [#/Vol] Ordered By: Nelson Siu on 11-26-2022 Basophils (Bld) [#/Vol] 0.1 10*3/uL 0.0-0.2 [facility] Basophils/100 WBC Auto (Bld) Ordered By: Nelson Siu on 11-26-2022 Basophils/100 WBC (Bld) 0.8 % . F [facility] Calcium [Mass/volume] in Ser um or PlasmaOrdered By: Nelson Siu on 11-26-2022 Calcium [Mass/Vol] 9.1 mg/dL 8.6-10.3 [facility] Carbon dioxide, total [Moles /volume] in Serum or PlasmaOrdered By: Nelson Siu on 11-26-2022 CO2 [Moles/Vol] 25.8 mmol/L 21.0-31.0 [facility] Chloride [Moles/volume] in S olga or PlasmaOrdered By: Nelson Siu on 11-26-2022 Chloride [Moles/Vol] 94 mmol/L 98-107 [facility] [place] Complete Blood Count Auto Di ffon 11-26-2022 Basophils (Bld) [#/Vol] 0.1 10*3/uL Normal 0.0-0.2 [facility] Comment on above: Result Comment: PERF ORMED BY: [place] [address] PATHOLOGIST DO ALL OPERATOR XAVIER PINEDA M.D. Performed By: #### C BC #### [address] Basophils/100 WBC (Bld) 0.8 % Normal . [facility] Comment on above: Performed By: #### C BC #### [address] Eosinophils (Bld) [#/Vol] 0.0 10*3/uL Normal 0.0-0.45 [facility] Comment on above: Performed By: #### C BC #### [address] Eosinophils/100 WBC (Bld) 0.5 % Normal . [facility] Comment on above: Performed By: #### C BC #### [address] Erythrocyte distribution width (RBC) [Ratio] 14.1 % Normal 11.9-15.3 [facility] Comment on above: Performed By: #### C BC #### [address] Hematocrit (Bld) [Volume fraction] 33.3 % Low 34.0-46.4 [facility] Comment on above: Performed By: #### C BC #### [address] Hemoglobin (Bld) [Mass/Vol] 11.2 g/dL Low 11.8-15.4 [facility] Comment on above: Performed By: #### C BC #### [place] [address] [place] Lymphocytes (Bld) [#/Vol] 1.5 10*3/uL Normal 1.00-4.8 [facility] Comment on above: Performed By: #### C BC #### [place] [address] [place] Lymphocytes/100 WBC (Bld) 23.1 % Normal . [facility] Comment on above: Performed By: #### C BC #### [facility] [address] MCH (RBC) [Entitic mass] 32.0 pg Normal 24.7-34.3 [facility] Comment on above: Performed By: #### C BC #### [facility] [address] MCV (RBC) [Entitic vol] 95.5 fL Normal 80-100 [facility] Comment on above: Performed By: #### C BC #### [facility] [address] Mean Corpuscular HGB Conc 33.5 g/dL Normal 32.0-35.0 [facility] Comment on above: Performed By: #### C BC #### [facility] [address] Monocytes (Bld) [#/Vol] 0.6 10*3/uL Normal 0.0-0.8 [facility] Comment on above: Performed By: #### C BC #### [facility] [address] Monocytes/100 WBC (Bld) 9.6 % Normal . [facility] Comment on above: Performed By: #### C BC #### [address] Neutrophils (Bld) [#/Vol] 4.2 10*3/uL Normal 1.8-7.7 [facility] Comment on above: Performed By: #### C BC #### [facility] [address] Neutrophils/100 WBC (Bld) 66.0 % Normal . [facility] Comment on above: Performed By: #### C BC #### [address] NRBC% 0.0 /100{WBC} Normal 0-0.5 [facility] Comment on above: Performed By: #### C BC #### [facility] [address] Platelet mean volume (Bld) [Entitic vol] 8.7 fL Normal 6.3-10.7 [facility] Comment on above: Performed By: #### C BC #### [facility] [address] [place] [id number] [facility] Platelets (Bld) [#/Vol] 235 10*3/uL Normal 150-450 [facility] Comment on above: Performed By: #### C BC #### [facility] [address] RBC (Bld) [#/Vol] 3.49 10*6/uL Low 3.60-5.00 [facility] Comment on above: Performed By: #### C BC #### [facility] [address] [place] [id number] [facility] WBC (Bld) [#/Vol] 6.3 10*3/uL Normal 3.8-11.6 [facility] Comment on above: Performed By: #### C BC #### [facility] [address] Creatinine [Mass/volume] in Serum or PlasmaOrdered By: Nelson Siu on 11-26-2022 Creatinine [Mass/Vol] 3.51 mg/dL 0.60-1.20 [facility] Eosinophils Auto (Bld) [#/Vo l]Ordered By: Nelson Siu on 11-26-2022 Eosinophils (Bld) [#/Vol] 0.0 10*3/uL 0.0-0.45 [facility] Eosinophils/100 WBC Auto (Bl d)Ordered By: Nelson Siu on 11-26-2022 Eosinophils/100 WBC (Bld) 0.5 % . [facility] Erythrocyte distribution wid th Auto (RBC) [Ratio]Ordered By: Neslon Siu on 11-26-2022 Erythrocyte distribution width (RBC) [Ratio] 14.1 % 11.9-15.3 [facility] Glucose [Mass/volume] in Ser um or PlasmaOrdered By: Nelson Siu on 11-26-2022 Glucose [Mass/Vol] 74 mg/dL 70-100 [facility] Comment on above: ADA recommended refe rence rangeRandom Glucose Reference Range is dependent on time and content of last meal. Glucose of more than 200 mg/dL in a nonstressed, ambulatory subject supports the diagnosis of Diabetes Mellitus. Hematocrit Auto (Bld) [Volum e fraction]Ordered By: Nelson Siu on 11-26-2022 Hematocrit (Bld) [Volume fraction] 33.3 % 34.0-46.4 [facility] Hemoglobin [Mass/volume] in BloodOrdered By: Nelson Siu on 11-26-2022 Hemoglobin (Bld) [Mass/Vol] 11.2 g/dL 11.8-15.4 [facility] Leukocytes [#/volume] correc dino for nucleated erythrocytes in Blood by Automated counOrdered By: Nelson Siu on 11-26-2022 WBC corrected for nucl RBC Auto (Bld) [#/Vol] 6.3 10*3/uL 3.8-11.6 [facility] Lymphocytes Auto (Bld) [#/Vo l]Ordered By: Nelson Siu on 11-26-2022 Lymphocytes (Bld) [#/Vol] 1.5 10*3/uL 1.00-4.8 [facility] Lymphocytes/100 WBC Auto (Bl d)Ordered By: Nelson Siu on 11-26-2022 Lymphocytes/100 WBC (Bld) 23.1 % . [facility] MCH Auto (RBC) [Entitic mass ]Ordered By: Nelson Siu on 11-26-2022 MCH (RBC) [Entitic mass] 32.0 pg 24.7-34.3 [facility] MCHC Auto (RBC) [Mass/Vol]Or dered By: Nelson Siu on 11-26-2022 MCHC (RBC) [Mass/Vol] 33.5 g/dL 32.0-35.0 [facility] MCV Auto (RBC) [Entitic vol] Ordered By: Nelson Siu on 11-26-2022 MCV (RBC) [Entitic vol] 95.5 fL 80-100 [facility] Monocytes Auto (Bld) [#/Vol] Ordered By: Nelson Siu on 11-26-2022 Monocytes (Bld) [#/Vol] 0.6 10*3/uL 0.0-0.8 [facility] Monocytes/100 WBC Auto (Bld) Ordered By: Nelson Siu on 11-26-2022 Monocytes/100 WBC (Bld) 9.6 % . [facility] Neutrophils Auto (Bld) [#/Vo l]Ordered By: Nelson Siu on 11-26-2022 Neutrophils (Bld) [#/Vol] 4.2 10*3/uL 1.8-7.7 [facility] Neutrophils/100 WBC Auto (Bl d)Ordered By: Nelson Siu on 11-26-2022 Neutrophils/100 WBC (Bld) 66.0 % . [facility] No Panel InformationOrdered By: Nelson Siu on 11-26-2022 Estimated GFR (CKD-EPI) 12.389 mL/Min [facility] Creatinine Clearance (Chem 9.04 [facility] Nucleated erythrocytes [Pres ence] in Blood by Automated countOrdered By: Nelson Siu on 11-26-2022 Nucleated RBC Auto Ql (Bld) 0.0 /100{WBC} 0-0.5 [facility] Platelet mean volume Auto (B ld) [Entitic vol]Ordered By: Nelson Siu on 11-26-2022 Platelet mean volume (Bld) [Entitic vol] 8.7 fL 6.3-10.7 [facility] Platelets Auto (Bld) [#/Vol] Ordered By: Nelson Siu on 11-26-2022 Platelets (Bld) [#/Vol] 235 10*3/uL 150-450 [facility] Potassium [Moles/volume] in Serum or PlasmaOrdered By: Nelson Siu on 11-26-2022 Potassium [Moles/Vol] 3.7 mmol/L 3.5-5.1 [facility] RBC Auto (Bld) [#/Vol]Ordere d By: Nelson Siu on 11-26-2022 RBC (Bld) [#/Vol] 3.49 10*6/uL 3.60-5.00 [facility] Serum or plasma anion gap de terminationOrdered By: Nelson Siu on 11-26-2022 Anion gap [Moles/Vol] 13.9 mmol/L 6.0-15.0 [facility] Sodium [Moles/volume] in Ser um or PlasmaOrdered By: Nelson Siu on 11-26-2022 Sodium [Moles/Vol] 130 mmol/L 136-145 [facility] Urea nitrogen [Mass/volume] in Serum or PlasmaOrdered By: Nelson Siu on 11-26-2022 Urea nitrogen [Mass/Vol] 26 mg/dL 7-25 [facility] WBC Auto (Bld) [#/Vol]Ordere d By: Nelson Siu on 11-26-2022 WBC (Bld) [#/Vol] 6.3 10*3/uL 3.8-11.6 [facility] US AV Fistulaon 11-03-2022 US AV Fistula [facility] [place] [address] Ultrasound Report Signed Patient: Danyelle Henry MR#: [id number] 53 : 1940 Acct:[id number] Age/Sex: 82 / F ADM Date: 11/03/22 Loc: [facility] Room: Type: [facility] Attending Dr: Ken Haas MD Ordering Provider: Ken Haas MD Date of Service: 11/03/22 US/US AV Fistula: N18.6 Copies to: Ken Haas MD Duplex examination right arm AV fistula Indication for study: Inadequate right arm fistula PROCEDURE: Color-flow duplex scanning is used to interrogate this right upper extremity antecubital level fistula. The overall size of the fistula is adequate at between 6 and just under 8 mm. Ov erall flows in the fistula. Adequate at a minimum of 600 and maximum of 1300 cc/m. No focal stenosis is noted. The fistula is greater than 6 mm from the skin. US/US AV Fistula IMPRESSION: This fistula has overall adequate size and flow but is too deep for coronary transposition Impression dictated by: Ken Haas M.D.11/03/2022 11:42 AM Dictation Location: [place] [address] Tech: Dominga Ames Transcribed By: LUZ MARINA 11/03/22 1142 Dictated By: Ken Haas MD 11/03/22 1141 Signed By: 11/03/22 1142 [facility] Metabolic Panelon 06-0 Anion gap [Moles/Vol] 14.0 mmol/L Normal 6.0-15.0 [facility] Comment on above: Performed By: #### C BC, BMP #### [facility] [address] Calcium [Mass/Vol] 9.2 mg/dL Normal 8.6-10.3 [facility] Comment on above: Performed By: #### C DIEGO, BMP #### [facility] [address] Chloride [Moles/Vol] 97 mmol/L Low 98-107 [facility] [place] Comment on above: Performed By: #### C DIEGO, BMP #### [facility] [address] [place] [address] [place] CO2 [Moles/Vol] 26.1 mmol/L Normal 21.0-31.0 [facility] Comment on above: Performed By: #### C BC, BMP #### [facility] [address] [place] [address] [place] Creatinine [Mass/Vol] 2.91 mg/dL High 0.60-1.20 [facility] Comment on above: Performed By: #### C BC, BMP #### [facility] [address] [place] [address] [place] Creatinine Clr Calc Pharmacy 10.52 [facility] Comment on above: Result Comment: PERF ORMED BY: [place] [address] PATHOLOGIST DO ALL OPERATOR XAVIER PINEDA M.D. Performed By: #### C BC, BMP #### [facility] [address] [place] [address] [place] GFR/1.73 sq M.predicted MDRD (S/P/Bld) [Vol rate/Area] 15.514 mL/min/{1.73_m2} [facility] Comment on above: Performed By: #### C BC, BMP #### [facility] [address] Glucose [Mass/Vol] 76 mg/dL Normal 70-100 [facility] Comment on above: Result Comment: [place] Glucose Reference Range is dependent on time and content of last meal. Glucose of more than 200 mg/dL in a nonstressed, ambulatory subject supports the diagnosis of Diabetes Mellitus. ADA recommended reference range Performed By: #### C BC, BMP #### [facility] [address] Potassium [Moles/Vol] 3.1 mmol/L Low 3.5-5.1 [facility] Comment on above: Performed By: #### C BC, BMP #### [facility] [address] Sodium [Moles/Vol] 134 mmol/L Low 136-145 [facility] Comment on above: Performed By: #### C BC, BMP #### [facility] [address] Urea nitrogen [Mass/Vol] 22 mg/dL Normal 7-25 [facility] Comment on above: Performed By: #### C BC, BMP #### [facility] [address] Basophils Auto (Bld) [#/Vol] Ordered By: Kade Contreras on 09-03-2022 Basophils (Bld) [#/Vol] 0.1 10*3/uL 0.0-0.2 [facility] Basophils/100 WBC Auto (Bld) Ordered By: Kade Contreras on 09-03-2022 Basophils/100 WBC (Bld) 1.1 % . F [facility] Calcium [Mass/volume] in Ser um or PlasmaOrdered By: Kade Contreras on 09-03-2022 Calcium [Mass/Vol] 9.2 mg/dL 8.6-10.3 [facility] Carbon dioxide, total [Moles /volume] in Serum or PlasmaOrdered By: Kade Contreras on 09-03-2022 CO2 [Moles/Vol] 26.1 mmol/L 21.0-31.0 [facility] Chloride [Moles/volume] in S olga or PlasmaOrdered By: Kade Contreras on 09-03-2022 Chloride [Moles/Vol] 97 mmol/L 98-107 [facility] [place] Complete Blood Count Auto Di ffon 09-03-2022 Basophils (Bld) [#/Vol] 0.1 10*3/uL Normal 0.0-0.2 [facility] Comment on above: Result Comment: PERF ORMED BY: [place] [address] PATHOLOGIST DO ALL OPERATOR XAVIER PINEDA M.D. Performed By: #### C BC #### [address] Basophils/100 WBC (Bld) 1.1 % Normal . [facility] Comment on above: Performed By: #### C BC #### [address] Eosinophils (Bld) [#/Vol] 0.0 10*3/uL Normal 0.0-0.45 [facility] Comment on above: Performed By: #### C BC #### [address] Eosinophils/100 WBC (Bld) 0.6 % Normal . [facility] Comment on above: Performed By: #### C BC #### [address] Erythrocyte distribution width (RBC) [Ratio] 15.2 % Normal 11.9-15.3 [facility] Comment on above: Performed By: #### C BC #### [address] Hematocrit (Bld) [Volume fraction] 31.3 % Low 34.0-46.4 [facility] Comment on above: Performed By: #### C BC #### [place] [address] [place] Hemoglobin (Bld) [Mass/Vol] 10.5 g/dL Low 11.8-15.4 [facility] Comment on above: Performed By: #### C BC #### [facility] [address] Lymphocytes (Bld) [#/Vol] 1.0 10*3/uL Normal 1.00-4.8 [facility] Comment on above: Performed By: #### C BC #### [facility] [address] Lymphocytes/100 WBC (Bld) 15.2 % Normal . [facility] Comment on above: Performed By: #### C BC #### [address] MCH (RBC) [Entitic mass] 33.0 pg Normal 24.7-34.3 [facility] Comment on above: Performed By: #### C BC #### [address] MCV (RBC) [Entitic vol] 98.2 fL Normal 80-100 F [facility] Comment on above: Performed By: #### C BC #### [address] Mean Corpuscular HGB Conc 33.6 g/dL Normal 32.0-35.0 [facility] Comment on above: Performed By: #### C BC #### [address] Monocytes (Bld) [#/Vol] 0.7 10*3/uL Normal 0.0-0.8 [facility] Comment on above: Performed By: #### C BC #### [place] [address] [place] Monocytes/100 WBC (Bld) 10.7 % Normal . [facility] Comment on above: Performed By: #### C BC #### [address] Neutrophils (Bld) [#/Vol] 4.9 10*3/uL Normal 1.8-7.7 [facility] Comment on above: Performed By: #### C BC #### [facility] [address] [place] [id number] [place] Neutrophils/100 WBC (Bld) 72.4 % Normal . [facility] Comment on above: Performed By: #### C BC #### [facility] [address] [place] [address] [place] NRBC% 0.1 /100{WBC} Normal 0-0.5 [facility] Comment on above: Performed By: #### C BC #### [facility] [address] Platelet mean volume (Bld) [Entitic vol] 8.4 fL Normal 6.3-10.7 [facility] Comment on above: Performed By: #### C BC #### [facility] [address] [place] [address] [place] Platelets (Bld) [#/Vol] 247 10*3/uL Normal 150-450 [facility] Comment on above: Performed By: #### C BC #### [facility] [address] RBC (Bld) [#/Vol] 3.19 10*6/uL Low 3.60-5.00 [facility] Comment on above: Performed By: #### C BC #### [facility] [address] [place] [id number] [place] WBC (Bld) [#/Vol] 6.8 10*3/uL Normal 3.8-11.6 [facility] Comment on above: Performed By: #### C BC #### [facility] [address] [place] [id number] [place] Creatinine [Mass/volume] in Serum or PlasmaOrdered By: Kade Contreras on 09-03-2022 Creatinine [Mass/Vol] 2.91 mg/dL 0.60-1.20 [facility] ECG 12 lead ECGon 09-03-2022 ECG 12 lead ECG [facility] [address] [place] [address] [place] [address] Electrocardiograph Report Signed Patient: Danyelle Henry MR#: [id number] 53 : 1940 Acct:[id number] Age/Sex: 82 / F ADM Date: 09/03/22 Loc: [place] Room: Type: [facility] Attending Dr: Ken Haas MD Ordering Provider: Kade Contreras DO Date of Service: 09/03/2204/27/558 ECG/ECG 12 lead ECG: pre-op rm 8 Copies to: Test Reason : Blood Pressure : / mmHG Vent. Rate : 073 BPM Atrial Rate : 073 BPM P-R Int : 150 ms QRS Dur : 102 ms QT Int : 414 ms P-R-T Axes : 067 063 -75 degrees QTc Int : 456 ms Normal sinus rhythm Cannot rule out Inferior infarct , age undetermined Abnormal ECG No previous ECGs available Confirmed by [facility] ([id number]) on 09/03/2022 8:35:22 AM Referred By: Electronically Signed By:DELGADO YORK MD [facility] Transcribed By: MUS Signed By Reynaldo York MD 09/03/22 0835 Normal [facility] Eosinophils Auto (Bld) [#/Vo l]Ordered By: Kade Contreras on 09-03-2022 Eosinophils (Bld) [#/Vol] 0.0 10*3/uL 0.0-0.45 [facility] Eosinophils/100 WBC Auto (Bl d)Ordered By: Kade Contreras on 09-03-2022 Eosinophils/100 WBC (Bld) 0.6 % . [facility] Erythrocyte distribution wid th Auto (RBC) [Ratio]Ordered By: Kade Contreras on 09-03-2022 Erythrocyte distribution width (RBC) [Ratio] 15.2 % 11.9-15.3 [facility] Glucose [Mass/volume] in Ser um or PlasmaOrdered By: Kade Contreras on 09-03-2022 Glucose [Mass/Vol] 76 mg/dL 70-100 [facility] Comment on above: ADA recommended refe rence rangeRandom Glucose Reference Range is dependent on time and content of last meal. Glucose of more than 200 mg/dL in a nonstressed, ambulatory subject supports the diagnosis of Diabetes Mellitus. Hematocrit Auto (Bld) [Volum e fraction]Ordered By: aKde Contreras on 09-03-2022 Hematocrit (Bld) [Volume fraction] 31.3 % 34.0-46.4 [facility] Hemoglobin [Mass/volume] in BloodOrdered By: Kade Contreras on 09-03-2022 Hemoglobin (Bld) [Mass/Vol] 10.5 g/dL 11.8-15.4 [facility] Leukocytes [#/volume] correc dino for nucleated erythrocytes in Blood by Automated counOrdered By: Kade Contreras on 09-03-2022 WBC corrected for nucl RBC Auto (Bld) [#/Vol] 6.8 10*3/uL 3.8-11.6 [facility] Lymphocytes Auto (Bld) [#/Vo l]Ordered By: Kade Contreras on 09-03-2022 Lymphocytes (Bld) [#/Vol] 1.0 10*3/uL 1.00-4.8 [facility] Lymphocytes/100 WBC Auto (Bl d)Ordered By: Kade Contreras on 09-03-2022 Lymphocytes/100 WBC (Bld) 15.2 % . [facility] MCH Auto (RBC) [Entitic mass ]Ordered By: Kade Contreras on 09-03-2022 MCH (RBC) [Entitic mass] 33.0 pg 24.7-34.3 [facility] MCHC Auto (RBC) [Mass/Vol]Or dered By: Kade Contreras on 09-03-2022 MCHC (RBC) [Mass/Vol] 33.6 g/dL 32.0-35.0 [facility] MCV Auto (RBC) [Entitic vol] Ordered By: Kade Contreras on 09-03-2022 MCV (RBC) [Entitic vol] 98.2 fL 80-100 [facility] Monocytes Auto (Bld) [#/Vol] Ordered By: Kade Contreras on 09-03-2022 Monocytes (Bld) [#/Vol] 0.7 10*3/uL 0.0-0.8 [facility] Monocytes/100 WBC Auto (Bld) Ordered By: Kade Contreras on 09-03-2022 Monocytes/100 WBC (Bld) 10.7 % . [facility] Neutrophils Auto (Bld) [#/Vo l]Ordered By: Kade Contreras on 09-03-2022 Neutrophils (Bld) [#/Vol] 4.9 10*3/uL 1.8-7.7 [facility] Neutrophils/100 WBC Auto (Bl d)Ordered By: Kade Contreras on 09-03-2022 Neutrophils/100 WBC (Bld) 72.4 % . [facility] No Panel InformationOrdered By: Kade Contreras on 09-03-2022 Estimated GFR (CKD-EPI) 15.514 mL/Min [facility] Creatinine Clearance (Chem 10.52 [facility] Nucleated erythrocytes [Pres ence] in Blood by Automated countOrdered By: Kade Contreras on 09-03-2022 Nucleated RBC Auto Ql (Bld) 0.1 /100{WBC} 0-0.5 [facility] Platelet mean volume Auto (B ld) [Entitic vol]Ordered By: Kade Contreras on 09-03-2022 Platelet mean volume (Bld) [Entitic vol] 8.4 fL 6.3-10.7 [facility] Platelets Auto (Bld) [#/Vol] Ordered By: Kade Contreras on 09-03-2022 Platelets (Bld) [#/Vol] 247 10*3/uL 150-450 [facility] Potassium [Moles/volume] in Serum or PlasmaOrdered By: Kade Contreras on 09-03-2022 Potassium [Moles/Vol] 3.1 mmol/L 3.5-5.1 [facility] RBC Auto (Bld) [#/Vol]Ordere d By: Kade Contreras on 09-03-2022 RBC (Bld) [#/Vol] 3.19 10*6/uL 3.60-5.00 [facility] Serum or plasma anion gap de terminationOrdered By: Kade Contreras on 09-03-2022 Anion gap [Moles/Vol] 14.0 mmol/L 6.0-15.0 [facility] Sodium [Moles/volume] in Ser um or PlasmaOrdered By: Kade Contreras on 09-03-2022 Sodium [Moles/Vol] 134 mmol/L 136-145 [facility] Urea nitrogen [Mass/volume] in Serum or PlasmaOrdered By: Kade Contreras on 09-03-2022 Urea nitrogen [Mass/Vol] 22 mg/dL 7-25 [facility] WBC Auto (Bld) [#/Vol]Ordere d By: Kade Contreras on 09-03-2022 WBC (Bld) [#/Vol] 6.8 10*3/uL 3.8-11.6 [facility] US VENOUS DOPPLER R Usama US VENOUS DOPPLER R ARM EXAMINATION: US VENOUS DOPPLER R ARM HISTORY: Pain ; right forearm pain and swelling COMPARISON: No relevant comparison available. FINDINGS: REGION: Right upper extremity THROMBI: None. COMPRESSIBILITY: Normal compressibility. FLOW: Normal waveform and antegrade flow between 5 and 20 cm/s. OTHER: None. IMPRESSION: 1. No deep vein thrombus within the right upper extremity. Electronically authenticated by: YARA SWIFT Date: 2022-08-07 14:31 Normal [facility] XR ELBOW RT MIN 3 VIEWSon XR ELBOW RT MIN 3 VIEWS EXAM: XR ELBOW R T MIN 3 VIEWS, XR FOREARM RT 2V, XR WRIST RT MIN 3 V HISTORY: Pain COMPARISON: None. 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 Degenerative changes of first carpometacarpal and to a lesser degree triscaphe joints. The remainder of the joint spaces are unremarkable for patient's age. No visualized fracture, dislocation, subluxation or osseous lesion. IMPRESSION: No visualized acute osseous irregularity. Electronically authenticated by: MADISON NARANJO Date: 2022-08-07 16:14 Normal [facility] hemodial access UNIon 08-04-2022 [facility] hemodial access [facility] [place] [id number] Ultrasound Report Signed Patient: Danyelle Henry MR#: [id number] 53 : 1940 Acct:[id number] Age/Sex: 81 / F ADM Date: 08/04/22 Loc: [facility] Room: Type: [facility] Attending Dr: Ken Haas MD Ordering Provider: Ken Haas MD Date of Service: 08/04/22 US/US map hemodial access UNI: N18.6, Z99.2 Copies to: Ken Haas MD Right upper extremity vein mapping examination Indication for study: Renal failure with need for dialysis access PROCEDURE: B-mode imaging and color-flow duplex scanning are used to interrogate the venous and arterial anatomy of the right upper extremity. The right forearm cephalic vein is small. From the region just above the antecubital space to the axilla the basilic vein is potential usable although it is small near the antecubital space at 2 mm. Becomes much larger in the upper arm at 4 to 6 mm. The cephalic vein is inadequate in both the form and the upper arm. The subclavian and axillary veins are patent. The brachial artery is 4 mm and the radial artery is 2 mm. US/US map hemodial access UNI IMPRESSION: This patient potentially could have a basilic vein fistula in the right arm although the distal component of the vein near the antecubital space is quite small. The cephalic vein is not usable. The axillary vein is patent and potential exist for placement of a prosthetic graft. Impression dictated by: Ken Haas M.D.08/04/2022 11:19 AM Dictation Location: [place] [address] Tech: Dominga Ames Transcribed By: LUZ MARINA 08/04/22 111 Dictated By: Ken Haas MD 08/04/22 1109 Signed By: 08/04/22 1119 [facility] HEMOGLOBINon 07-31-2022 Hemoglobin (Bld) [Mass/Vol] 9.8 g/dL Critically low 12.0-16.0 [facility] Comment on above: Performed By: #### H #### [facility] [address] [address] [address] Hubert Andrews Basic Metabolic Panelon 07-05 Anion gap [Moles/Vol] 14.7 mmol/L Normal 6.0-15.0 [facility] Comment on above: Performed By: #### C BC #### [facility] [address] [place] [address] [place] Calcium [Mass/Vol] 8.8 mg/dL Normal 8.6-10.3 [facility] Comment on above: Performed By: #### C BC #### [facility] [address] Chloride [Moles/Vol] 104 mmol/L Normal 98-107 [facility] [place] Comment on above: Performed By: #### C BC #### [address] CO2 [Moles/Vol] 20.8 mmol/L Low 21.0-31.0 [facility] Comment on above: Performed By: #### C BC #### [place] [address] [place] Creatinine [Mass/Vol] 5.24 mg/dL Significan t change up 0.60-1.20 [facility] Comment on above: Performed By: #### C BC #### [place] [address] [place] Creatinine Clr Calc Pharmacy 6.25 [facility] Comment on above: Result Comment: PERF ORMED BY: [place] [address] PATHOLOGIST DO ALL OPERATOR XAVIER PINEDA M.D. Performed By: #### C BC #### [place] [address] [place] GFR/1.73 sq M.predicted MDRD (S/P/Bld) [Vol rate/Area] 7.707 mL/min/{1.73_m2} [facility] Comment on above: Performed By: #### C BC #### [address] [address] [place] Glucose [Mass/Vol] 69 mg/dL Low 70-100 [facility] Comment on above: Result Comment: Nelson Glucose Reference Range is dependent on time and content of last meal. Glucose of more than 200 mg/dL in a nonstressed, ambulatory subject supports the diagnosis of Diabetes Mellitus. ADA recommended reference range Performed By: #### C BC #### [facility] [address] [place] [id number] [facility] Potassium [Moles/Vol] 3.5 mmol/L Normal 3.5-5.1 [facility] Comment on above: Performed By: #### C BC #### [facility] [address] [place] [id number] [facility] Sodium [Moles/Vol] 136 mmol/L Normal 136-145 [facility] Comment on above: Performed By: #### C BC #### [facility] [address] [place] [id number] [facility] Urea nitrogen [Mass/Vol] 43 mg/dL High 7-25 [facility] Comment on above: Performed By: #### C BC #### [facility] [address] [place] [id number] [place] Calcium [Mass/volume] in Ser um or PlasmaOrdered By: Дмитрий Her on 07-27-2022 Calcium [Mass/Vol] 8.8 mg/dL 8.6-10.3 [facility] Carbon dioxide, total [Moles /volume] in Serum or PlasmaOrdered By: Дмитрий Her on 07-27-2022 CO2 [Moles/Vol] 20.8 mmol/L 21.0-31.0 [facility] Chloride [Moles/volume] in S olga or PlasmaOrdered By: Дмитрий Her on 07-27-2022 Chloride [Moles/Vol] 104 mmol/L 98-107 [facility] [place] Creatinine [Mass/volume] in Serum or PlasmaOrdered By: Дмитрий Her on 07-27-2022 Creatinine [Mass/Vol] 5.24 mg/dL 0.60-1.20 [facility] Comment on above: Delta: 2.97 on 07/25 Erythrocyte distribution wid th Auto (RBC) [Ratio]Ordered By: Дмитрий Her on 07-27-2022 Erythrocyte distribution width (RBC) [Ratio] 15.4 % 11.9-15.3 [facility] Glucose [Mass/volume] in Ser um or PlasmaOrdered By: Дмитрий Her on 07-27-2022 Glucose [Mass/Vol] 69 mg/dL 70-100 [facility] Comment on above: ADA recommended refe rence rangeRandom Glucose Reference Range is dependent on time and content of last meal. Glucose of more than 200 mg/dL in a nonstressed, ambulatory subject supports the diagnosis of Diabetes Mellitus. Hematocrit Auto (Bld) [Volum e fraction]Ordered By: Дмитрий Her on 07-27-2022 Hematocrit (Bld) [Volume fraction] 27.4 % 34.0-46.4 [facility] Hemoglobin [Mass/volume] in BloodOrdered By: Дмитрий Her on 07-27-2022 Hemoglobin (Bld) [Mass/Vol] 9.2 g/dL 11.8-15.4 [facility] Hemogram CBC Without Diffon 07-27-2022 Erythrocyte distribution width (RBC) [Ratio] 15.4 % High 11.9-15.3 [facility] Comment on above: Performed By: #### C BC #### [address] Hematocrit (Bld) [Volume fraction] 27.4 % Low 34.0-46.4 [facility] Comment on above: Performed By: #### C BC #### [address] Hemoglobin (Bld) [Mass/Vol] 9.2 g/dL Low 11.8-15.4 [facility] Comment on above: Performed By: #### C BC #### [address] MCH (RBC) [Entitic mass] 31.9 pg Normal 24.7-34.3 [facility] Comment on above: Performed By: #### C BC #### [address] MCV (RBC) [Entitic vol] 95.0 fL Normal 80-100 [facility] Comment on above: Performed By: #### C BC #### [address] Mean Corpuscular HGB Conc 33.6 g/dL Normal 32.0-35.0 [facility] Comment on above: Performed By: #### C BC #### [address] Platelet mean volume (Bld) [Entitic vol] 8.6 fL Normal 6.3-10.7 [facility] Comment on above: Result Comment: PERF ORMED BY: [place] [address] PATHOLOGIST DO ALL OPERATOR XAVIER PINEDA M.D. Performed By: #### C BC #### [address] Platelets (Bld) [#/Vol] 238 10*3/uL Normal 150-450 [facility] Comment on above: Performed By: #### C BC #### [address] RBC (Bld) [#/Vol] 2.88 10*6/uL Low 3.60-5.00 [facility] Comment on above: Performed By: #### C BC #### [address] WBC (Bld) [#/Vol] 6.3 10*3/uL Normal 3.8-11.6 [facility] Comment on above: Performed By: #### C BC #### [address] Travis 07-27-2022 L ------- Specimen: [id number] Received: 07/27/22 Status: QASIM Trujillokirstin Num: [id number] Spec Type: Surgical Subm Dr: Uma Zhang MD Tissues: A Colon Biopsy (CECAL POLYPS X3) Procedures: HE/2, Gross/Micro L4 Age/ Patient Sex Location Account Attending Physician Danyelle Henry 81/F 3T [id number] Aj Ragland MD SPEC NUM: [id number] RECD: 07/27/22 STATUS: QASIM FIONA NUM: [id number] JHON: 07/27/22- SUBM DR: mUa Zhang MD ENTERED: 07/27/[address]: MEIR TYPE: Surgical DEPT: S ORDERED: HE/2, Gross/Micro L4 ORDERED: HE/2, Gross/Micro L4 Pathological Diagnosis Colon, cecum, polyps, biopsy: - Fragments of tubular adenoma. Clinical Information Rectal bleeding Gross Description Received in formalin labeled with the patient's name, number and cecal polyps ?3 are multiple fragments of soft hernandez tissue measuring 2.0 x 0.5 x 0.3 cm in aggregate. Entirely submitted in one cassette labeled A1. Microscopic Description Two glass slides with H E stained material have been examined. The microscopic findings support the above pathologic diagnosis. CPT Codes 56253 Specimen: [id number] Received: 07/27/22 Status: QASIM Herring Num: [id number] Spec Type: Surgical Subm Dr: Uma Zhang MD Tissues: A Colon Biopsy (CECAL POLYPS X3) Procedures: HE/Amaya, Gross/Micro L4 Patient: ElaineDanyelle benitez Tyler [id number] (Continued) Signed (signature on file) Elan Lam MD 07/28/22 1331 Normal [facility] Leukocytes [#/volume] correc dino for nucleated erythrocytes in Blood by Automated counOrdered By: Дмитрий Her on 07-27-2022 WBC corrected for nucl RBC Auto (Bld) [#/Vol] 6.3 10*3/uL 3.8-11.6 [facility] MCH Auto (RBC) [Entitic mass ]Ordered By: Дмитрий Her on 07-27-2022 MCH (RBC) [Entitic mass] 31.9 pg 24.7-34.3 [facility] MCHC Auto (RBC) [Mass/Vol]Or dered By: Дмитрий Her on 07-27-2022 MCHC (RBC) [Mass/Vol] 33.6 g/dL 32.0-35.0 [facility] MCV Auto (RBC) [Entitic vol] Ordered By: Дмитрий Her on 07-27-2022 MCV (RBC) [Entitic vol] 95.0 fL 80-100 F [facility] No Panel InformationOrdered By: Дмитрий Her on 07-27-2022 Estimated GFR (CKD-EPI) 7.707 mL/Min [facility] Creatinine Clearance (Chem 6.25 [facility] Platelet mean volume Auto (B ld) [Entitic vol]Ordered By: Дмитрий Her on 07-27-2022 Platelet mean volume (Bld) [Entitic vol] 8.6 fL 6.3-10.7 [facility] Platelets Auto (Bld) [#/Vol] Ordered By: Дмитрий Her on 07-27-2022 Platelets (Bld) [#/Vol] 238 10*3/uL 150-450 [facility] Potassium [Moles/volume] in Serum or PlasmaOrdered By: Дмитрий Her on 07-27-2022 Potassium [Moles/Vol] 3.5 mmol/L 3.5-5.1 [facility] RBC Auto (Bld) [#/Vol]Ordere d By: Дмитрий Her on 07-27-2022 RBC (Bld) [#/Vol] 2.88 10*6/uL 3.60-5.00 [facility] Serum or plasma anion gap de terminationOrdered By: Дмитрий Her on 07-27-2022 Anion gap [Moles/Vol] 14.7 mmol/L 6.0-15.0 [facility] Sodium [Moles/volume] in Ser um or PlasmaOrdered By: Дмитрий Her on 07-27-2022 Sodium [Moles/Vol] 136 mmol/L 136-145 [facility] Urea nitrogen [Mass/volume] in Serum or PlasmaOrdered By: Дмитрий Her on 07-27-2022 Urea nitrogen [Mass/Vol] 43 mg/dL 7-25 [facility] Hemogram CBC Without Diffon 07-26-2022 Erythrocyte distribution width (RBC) [Ratio] 15.9 % High 11.9-15.3 [facility] Comment on above: Performed By: #### C BCNO #### [address] Hematocrit (Bld) [Volume fraction] 29.7 % Low 34.0-46.4 [facility] Comment on above: Performed By: #### C BCNO #### [facility] [address] Hemoglobin (Bld) [Mass/Vol] 9.9 g/dL Low 11.8-15.4 [facility] Comment on above: Performed By: #### C BCNO #### [facility] [address] MCH (RBC) [Entitic mass] 31.6 pg Normal 24.7-34.3 [facility] Comment on above: Performed By: #### C BCNO #### [address] MCV (RBC) [Entitic vol] 95.1 fL Normal 80-100 F [facility] Comment on above: Performed By: #### C BCNO #### [facility] [address] Mean Corpuscular HGB Conc 33.2 g/dL Normal 32.0-35.0 [facility] Comment on above: Performed By: #### C BCNO #### [facility] [address] Platelet mean volume (Bld) [Entitic vol] 8.9 fL Normal 6.3-10.7 [facility] Comment on above: Result Comment: PERF ORMED BY: [place] [address] PATHOLOGIST DO ALL OPERATOR XAVIER PINEDA M.D. Performed By: #### C BCNO #### [address] Platelets (Bld) [#/Vol] 234 10*3/uL Normal 150-450 [facility] Comment on above: Performed By: #### C BCNO #### [address] RBC (Bld) [#/Vol] 3.12 10*6/uL Low 3.60-5.00 [facility] Comment on above: Performed By: #### C BCNO #### [address] WBC (Bld) [#/Vol] 7.4 10*3/uL Normal 3.8-11.6 [facility] Comment on above: Performed By: #### C BCNO #### [address] Basic Metabolic Panelon 07-05 Anion gap [Moles/Vol] 13.3 mmol/L Normal 6.0-15.0 [facility] Comment on above: Performed By: #### C BCNO #### [address] Calcium [Mass/Vol] 8.3 mg/dL Low 8.6-10.3 [facility] Comment on above: Performed By: #### C BCNO #### [facility] [address] Chloride [Moles/Vol] 101 mmol/L Normal 98-107 [facility] [place] Comment on above: Performed By: #### C BCNO #### [facility] [address] CO2 [Moles/Vol] 25.4 mmol/L Normal 21.0-31.0 [facility] Comment on above: Performed By: #### C BCNO #### [facility] [address] Creatinine [Mass/Vol] 2.97 mg/dL Significan t change up 0.60-1.20 [facility] Comment on above: Performed By: #### C BCNO #### [place] [address] [place] Creatinine Clr Calc Pharmacy 11.02 Normal [facility] Comment on above: Result Comment: PERF ORMED BY: [place] [address] PATHOLOGIST DO ALL OPERATOR XAVIER PINEDA M.D. Performed By: #### C BCNO #### [place] [address] [place] GFR/1.73 sq M.predicted MDRD (S/P/Bld) [Vol rate/Area] 15.234 mL/min/{1.73_m2} Normal [facility] Comment on above: Performed By: #### C BCNO #### [facility] [address] [place] [address] [place] Glucose [Mass/Vol] 79 mg/dL Normal 70-100 [facility] Comment on above: Result Comment: Nelson om Glucose Reference Range is dependent on time and content of last meal. Glucose of more than 200 mg/dL in a nonstressed, ambulatory subject supports the diagnosis of Diabetes Mellitus. ADA recommended reference range Performed By: #### C BCNO #### [facility] [address] Potassium [Moles/Vol] 3.7 mmol/L Normal 3.5-5.1 [facility] Comment on above: Performed By: #### C BCNO #### [facility] [address] Sodium [Moles/Vol] 136 mmol/L Normal 136-145 [facility] Comment on above: Performed By: #### C BCNO #### [address] Urea nitrogen [Mass/Vol] 25 mg/dL Normal 7-25 [facility] Comment on above: Performed By: #### C BCNO #### [address] Basophils Auto (Bld) [#/Vol] Ordered By: Дмитрий Her on 07-25-2022 Basophils (Bld) [#/Vol] 0.0 10*3/uL 0.0-0.2 [facility] Basophils/100 WBC Auto (Bld) Ordered By: Дмитрий Her on 07-25-2022 Basophils/100 WBC (Bld) 0.6 % . F [facility] Complete Blood Count Auto Di ffon 07-25-2022 Basophils (Bld) [#/Vol] 0.0 10*3/uL Normal 0.0-0.2 [facility] Comment on above: Result Comment: PERF ORMED BY: [place] [address] PATHOLOGIST DO ALL OPERATOR XAVIER PINEDA M.D. Performed By: #### C BC #### [address] Basophils/100 WBC (Bld) 0.6 % Normal . [facility] Comment on above: Performed By: #### C BC #### [address] Eosinophils (Bld) [#/Vol] 0.1 10*3/uL Normal 0.0-0.45 [facility] Comment on above: Performed By: #### C BC #### [address] Eosinophils/100 WBC (Bld) 1.2 % Normal . [facility] Comment on above: Performed By: #### C BC #### [address] Erythrocyte distribution width (RBC) [Ratio] 15.5 % High 11.9-15.3 [facility] Comment on above: Performed By: #### C BC #### [address] Hematocrit (Bld) [Volume fraction] 27.3 % Low 34.0-46.4 [facility] Comment on above: Performed By: #### C BC #### [address] Hemoglobin (Bld) [Mass/Vol] 9.0 g/dL Low 11.8-15.4 [facility] Comment on above: Performed By: #### C BC #### [address] Lymphocytes (Bld) [#/Vol] 1.6 10*3/uL Normal 1.00-4.8 [facility] Comment on above: Performed By: #### C BC #### [address] Lymphocytes/100 WBC (Bld) 21.6 % Normal . [facility] Comment on above: Performed By: #### C BC #### [address] MCH (RBC) [Entitic mass] 31.4 pg Normal 24.7-34.3 [facility] Comment on above: Performed By: #### C BC #### [address] MCV (RBC) [Entitic vol] 94.8 fL Normal 80-100 F [facility] Comment on above: Performed By: #### C BC #### [address] Mean Corpuscular HGB Conc 33.1 g/dL Normal 32.0-35.0 [facility] Comment on above: Performed By: #### C BC #### [facility] [address] [place] [address] [place] Monocytes (Bld) [#/Vol] 0.7 10*3/uL Normal 0.0-0.8 [facility] Comment on above: Performed By: #### C BC #### [facility] [address] [place] [address] [place] Monocytes/100 WBC (Bld) 9.9 % Normal . [facility] Comment on above: Performed By: #### C BC #### [facility] [address] Neutrophils (Bld) [#/Vol] 4.8 10*3/uL Normal 1.8-7.7 [facility] Comment on above: Performed By: #### C BC #### [facility] [address] Neutrophils/100 WBC (Bld) 66.7 % Normal . [facility] Comment on above: Performed By: #### C BC #### [facility] [address] [place] [address] [place] NRBC% 0.1 /100{WBC} Normal 0-0.5 [facility] Comment on above: Performed By: #### C BC #### [facility] [address] Platelet mean volume (Bld) [Entitic vol] 9.1 fL Normal 6.3-10.7 [facility] Comment on above: Performed By: #### C BC #### [facility] [address] [place] [address] [place] Platelets (Bld) [#/Vol] 216 10*3/uL Normal 150-450 [facility] Comment on above: Performed By: #### C BC #### [facility] [address] RBC (Bld) [#/Vol] 2.87 10*6/uL Low 3.60-5.00 [facility] Comment on above: Performed By: #### C BC #### [facility] [address] [place] [address] [place] WBC (Bld) [#/Vol] 7.2 10*3/uL Normal 3.8-11.6 [facility] Comment on above: Performed By: #### C BC #### [facility] [address] Eosinophils Auto (Bld) [#/Vo l]Ordered By: Дмитрий Her on 07-25-2022 Eosinophils (Bld) [#/Vol] 0.1 10*3/uL 0.0-0.45 [facility] Eosinophils/100 WBC Auto (Bl d)Ordered By: Дмитрий Her on 07-25-2022 Eosinophils/100 WBC (Bld) 1.2 % . [facility] Lymphocytes Auto (Bld) [#/Vo l]Ordered By: Дмитрий Her on 07-25-2022 Lymphocytes (Bld) [#/Vol] 1.6 10*3/uL 1.00-4.8 [facility] Lymphocytes/100 WBC Auto (Bl d)Ordered By: Дмитрий Her on 07-25-2022 Lymphocytes/100 WBC (Bld) 21.6 % . [facility] Monocytes Auto (Bld) [#/Vol] Ordered By: Дмитрий Her on 07-25-2022 Monocytes (Bld) [#/Vol] 0.7 10*3/uL 0.0-0.8 [facility] Monocytes/100 WBC Auto (Bld) Ordered By: Дмитрий Her on 07-25-2022 Monocytes/100 WBC (Bld) 9.9 % . F [facility] Neutrophils Auto (Bld) [#/Vo l]Ordered By: Дмитрий Her on 07-25-2022 Neutrophils (Bld) [#/Vol] 4.8 10*3/uL 1.8-7.7 [facility] Neutrophils/100 WBC Auto (Bl d)Ordered By: Дмитрий Her on 07-25-2022 Neutrophils/100 WBC (Bld) 66.7 % . [facility] Nucleated erythrocytes [Pres ence] in Blood by Automated countOrdered By: Дмитрий Her on 07-25-2022 Nucleated RBC Auto Ql (Bld) 0.1 /100{WBC} 0-0.5 [facility] WBC Auto (Bld) [#/Vol]Ordere d By: Дмитрий Her on 07-25-2022 WBC (Bld) [#/Vol] 7.2 10*3/uL 3.8-11.6 [facility] ABO/Rh Retypeon 07-24-2022 ABO/RH Recheck Result Negative Normal [facility] Comment on above: Result Comment: PERF ORMED BY: [facility] [address] [address] PATHOLOGIST DO ALL OPERATOR XAVIER PINEDA M.D. Activated partial thrombopla stin time (aPTT) in platelet poor plasma by coagulation aOrdered By: Ivan Yancey on 07-24-2022 aPTT Coag (PPP) [Time] 31.4 s 25.1-36.5 [facility] Alanine aminotransferase [En zymatic activity/volume] in Serum or PlasmaOrdered By: Ivan Yancey on 07-24-2022 ALT [Catalytic activity/Vol] 13 U/L 7-52 [facility] Albumin [Mass/volume] in Ser um or Plasma by Bromocresol green (BCG) dye binding methoOrdered By: Ivan Yancey on 07-24-2022 Albumin BCG dye [Mass/Vol] 3.6 g/dL 3.5-5.7 [facility] Alkaline phosphatase [Enzyma tic activity/volume] in Serum or PlasmaOrdered By: Ivan Yancey on 07-24-2022 ALP [Catalytic activity/Vol] 114 U/L 34-104 [facility] Aspartate aminotransferase [ Enzymatic activity/volume] in Serum or PlasmaOrdered By: Ivan Yancey on 07-24-2022 AST [Catalytic activity/Vol] 16 U/L 13-39 [facility] Basophils Auto (Bld) [#/Vol] Ordered By: Ivan Yanecy on 07-24-2022 Basophils (Bld) [#/Vol] 0.0 10*3/uL 0.0-0.2 [facility] Basophils/100 WBC Auto (Bld) Ordered By: Ivan Yancey on 07-24-2022 Basophils/100 WBC (Bld) 0.5 % . F [facility] Bilirubin.total [Mass/volume ] in Serum or PlasmaOrdered By: Ivan Yancey on 07-24-2022 Bilirubin [Mass/Vol] 0.7 mg/dL 0.3-1.0 [facility] [place] Calcium [Mass/volume] in Ser um or PlasmaOrdered By: Ivan Yancey on 07-24-2022 Calcium [Mass/Vol] 8.3 mg/dL 8.6-10.3 [facility] Carbon dioxide, total [Moles /volume] in Serum or PlasmaOrdered By: Ivan Yancey on 07-24-2022 CO2 [Moles/Vol] 30.1 mmol/L 21.0-31.0 [facility] Chloride [Moles/volume] in S olga or PlasmaOrdered By: Ivan Yancey on 07-24-2022 Chloride [Moles/Vol] 96 mmol/L 98-107 [facility] [place] Complete Blood Count Auto Di ffon 07-24-2022 Basophils (Bld) [#/Vol] 0.0 10*3/uL Normal 0.0-0.2 [facility] Comment on above: Result Comment: PERF ORMED BY: [place] [address] PATHOLOGIST DO ALL OPERATOR XAVIER PINEDA M.D. Performed By: #### C MP, CBC, PT, HS TROP, PTT #### [facility] [address] Basophils/100 WBC (Bld) 0.5 % Normal . [facility] Comment on above: Performed By: #### C MP, CBC, PT, HS TROP, PTT #### [facility] [address] Eosinophils (Bld) [#/Vol] 0.1 10*3/uL Normal 0.0-0.45 [facility] Comment on above: Performed By: #### C MP, CBC, PT, HS TROP, PTT #### [address] Eosinophils/100 WBC (Bld) 1.4 % Normal . [facility] Comment on above: Performed By: #### C MP, CBC, PT, HS TROP, PTT #### [address] Erythrocyte distribution width (RBC) [Ratio] 15.3 % Normal 11.9-15.3 [facility] Comment on above: Performed By: #### C MP, CBC, PT, HS TROP, PTT #### [address] Hematocrit (Bld) [Volume fraction] 22.9 % Low 34.0-46.4 [facility] Comment on above: Performed By: #### C MP, CBC, PT, HS TROP, PTT #### [address] Hemoglobin (Bld) [Mass/Vol] 7.7 g/dL Low 11.8-15.4 [facility] Comment on above: Performed By: #### C MP, CBC, PT, HS TROP, PTT #### [address] Lymphocytes (Bld) [#/Vol] 1.1 10*3/uL Normal 1.00-4.8 [facility] Comment on above: Performed By: #### C MP, CBC, PT, HS TROP, PTT #### [address] Lymphocytes/100 WBC (Bld) 17.3 % Normal . [facility] Comment on above: Performed By: #### C MP, CBC, PT, HS TROP, PTT #### [address] MCH (RBC) [Entitic mass] 31.8 pg Normal 24.7-34.3 [facility] Comment on above: Performed By: #### C MP, CBC, PT, HS TROP, PTT #### [address] MCV (RBC) [Entitic vol] 95.0 fL Normal 80-100 F [facility] Comment on above: Performed By: #### C MP, CBC, PT, HS TROP, PTT #### [address] Mean Corpuscular HGB Conc 33.5 g/dL Normal 32.0-35.0 [facility] Comment on above: Performed By: #### C MP, CBC, PT, HS TROP, PTT #### [facility] [address] Monocytes (Bld) [#/Vol] 0.6 10*3/uL Normal 0.0-0.8 [facility] Comment on above: Performed By: #### C MP, CBC, PT, HS TROP, PTT #### [address] Monocytes/100 WBC (Bld) 20.31 % High 0.00-20.00 F [facility] Comment on above: Result Comment: For adults in ED, MDW > 20.0 may be associated with a higher risk of sepsis during the first 12 hrs of hospital admission Performed By: #### C MP, CBC, PT, HS TROP, PTT #### [facility] [address] [place] [address] Monocytes/100 WBC (Bld) 10.0 % Normal . F [facility] Comment on above: Performed By: #### C MP, CBC, PT, HS TROP, PTT #### [facility] [address] [place] [address] [place] Neutrophils (Bld) [#/Vol] 4.3 10*3/uL Normal 1.8-7.7 [facility] Comment on above: Performed By: #### C MP, CBC, PT, HS TROP, PTT #### [facility] [address] [place] [address] [place] Neutrophils/100 WBC (Bld) 70.8 % Normal . [facility] Comment on above: Performed By: #### C MP, CBC, PT, HS TROP, PTT #### [facility] [address] [place] [address] [place] NRBC% 0.1 /100{WBC} Normal 0-0.5 [facility] Comment on above: Performed By: #### C MP, CBC, PT, HS TROP, PTT #### [address] Platelet mean volume (Bld) [Entitic vol] 8.8 fL Normal 6.3-10.7 [facility] Comment on above: Performed By: #### C MP, CBC, PT, HS TROP, PTT #### [address] Platelets (Bld) [#/Vol] 225 10*3/uL Normal 150-450 [facility] Comment on above: Performed By: #### C MP, CBC, PT, HS TROP, PTT #### [address] RBC (Bld) [#/Vol] 2.41 10*6/uL Low 3.60-5.00 [facility] Comment on above: Performed By: #### C MP, CBC, PT, HS TROP, PTT #### [address] WBC (Bld) [#/Vol] 6.1 10*3/uL Normal 3.8-11.6 [facility] Comment on above: Performed By: #### C MP, CBC, PT, HS TROP, PTT #### [address] Comprehensive Metabolic Pane travsi 07-24-2022 Albumin [Mass/Vol] 3.6 g/dL Normal 3.5-5.7 [facility] Comment on above: Performed By: #### C MP, CBC, PT, HS TROP, PTT #### [address] Albumin/Globulin [Mass ratio] 1.7 {ratio} Normal [facility] Comment on above: Performed By: #### C MP, CBC, PT, HS TROP, PTT #### [address] ALP [Catalytic activity/Vol] 114 U/L High 34-104 [facility] Comment on above: Performed By: #### C MP, CBC, PT, HS TROP, PTT #### [facility] [address] ALT [Catalytic activity/Vol] 13 U/L Normal 7-52 [facility] Comment on above: Performed By: #### C MP, CBC, PT, HS TROP, PTT #### [facility] [address] Anion gap [Moles/Vol] 9.9 mmol/L Normal 6.0-15.0 [facility] Comment on above: Performed By: #### C MP, CBC, PT, HS TROP, PTT #### [address] AST [Catalytic activity/Vol] 16 U/L Normal 13-39 [facility] Comment on above: Performed By: #### C MP, CBC, PT, HS TROP, PTT #### [facility] [address] [place] [address] Bilirubin [Mass/Vol] 0.7 mg/dL Normal 0.3-1.0 [facility] [place] Comment on above: Performed By: #### C MP, CBC, PT, HS TROP, PTT #### [address] Calcium [Mass/Vol] 8.3 mg/dL Low 8.6-10.3 [facility] Comment on above: Performed By: #### C MP, CBC, PT, HS TROP, PTT #### [facility] [address] [place] [address] Chloride [Moles/Vol] 96 mmol/L Low 98-107 [facility] [place] Comment on above: Performed By: #### C MP, CBC, PT, HS TROP, PTT #### [facility] [address] [place] [address] CO2 [Moles/Vol] 30.1 mmol/L Normal 21.0-31.0 [facility] Comment on above: Performed By: #### C MP, CBC, PT, HS TROP, PTT #### [facility] [address] Creatinine [Mass/Vol] 1.91 mg/dL High 0.60-1.20 [facility] Comment on above: Performed By: #### C MP, CBC, PT, HS TROP, PTT #### [facility] [address] Creatinine Clr Calc Pharmacy 16.91 [facility] Comment on above: Result Comment: PERF ORMED BY: [place] [address] PATHOLOGIST DO ALL OPERATOR XAVIER PINEDA M.D. Performed By: #### C MP, CBC, PT, HS TROP, PTT #### [address] GFR/1.73 sq M.predicted MDRD (S/P/Bld) [Vol rate/Area] 25.874 mL/min/{1.73_m2} [facility] Comment on above: Performed By: #### C MP, CBC, PT, HS TROP, PTT #### [address] Globulin (S) [Mass/Vol] 2.1 g/dL [facility] Comment on above: Performed By: #### C MP, CBC, PT, HS TROP, PTT #### [address] Glucose [Mass/Vol] 103 mg/dL High 70-100 [facility] Comment on above: Result Comment: [place] Glucose Reference Range is dependent on time and content of last meal. Glucose of more than 200 mg/dL in a nonstressed, ambulatory subject supports the diagnosis of Diabetes Mellitus. ADA recommended reference range Performed By: #### C MP, CBC, PT, HS TROP, PTT #### [address] Potassium [Moles/Vol] 3.0 mmol/L Low 3.5-5.1 [facility] Comment on above: Performed By: #### C MP, CBC, PT, HS TROP, PTT #### [facility] [address] [place] [address] [place] Protein [Mass/Vol] 5.7 g/dL Low 6.4-8.9 [facility] Comment on above: Performed By: #### C MP, CBC, PT, HS TROP, PTT #### [facility] [address] [place] [address] [place] Sodium [Moles/Vol] 133 mmol/L Low 136-145 [facility] Comment on above: Performed By: #### C MP, CBC, PT, HS TROP, PTT #### [facility] [address] [place] [address] [place] Urea nitrogen [Mass/Vol] 10 mg/dL Normal 7-25 [facility] Comment on above: Performed By: #### C MP, CBC, PT, HS TROP, PTT #### [facility] [address] Creatinine [Mass/volume] in Serum or PlasmaOrdered By: Ivan Yancey on 07-24-2022 Creatinine [Mass/Vol] 1.91 mg/dL 0.60-1.20 [facility] Eosinophils Auto (Bld) [#/Vo l]Ordered By: Ivan Yancey on 07-24-2022 Eosinophils (Bld) [#/Vol] 0.1 10*3/uL 0.0-0.45 [facility] Eosinophils/100 WBC Auto (Bl d)Ordered By: Ivan Yancey on 07-24-2022 Eosinophils/100 WBC (Bld) 1.4 % . [facility] Erythrocyte distribution wid th Auto (RBC) [Ratio]Ordered By: Ivan Yancey on 07-24-2022 Erythrocyte distribution width (RBC) [Ratio] 15.3 % 11.9-15.3 [facility] Fecal occult blood detection by immunochemistryOrdered By: Ivan Yancey on 07-24-2022 Hemoglobin.gastrointest inal Ql (Stl) [facility] Globulin Calc (S) [Mass/Vol] Ordered By: Ivan Yancey on 07-24-2022 Globulin (S) [Mass/Vol] 2.1 g/dL F [facility] Glucose [Mass/volume] in Ser um or PlasmaOrdered By: Ivan Yancey on 07-24-2022 Glucose [Mass/Vol] 103 mg/dL 70-100 [facility] Comment on above: ADA recommended refe rence rangeRandom Glucose Reference Range is dependent on time and content of last meal. Glucose of more than 200 mg/dL in a nonstressed, ambulatory subject supports the diagnosis of Diabetes Mellitus. HEMOGLOBINon 07-24-2022 Hemoglobin (Bld) [Mass/Vol] 8.1 g/dL Critically low 12.0-16.0 [facility] Comment on above: Performed By: #### H GB ####[facility] [id number] [place], [place] [address]BiVipul Andrews Hematocrit Auto (Bld) [Volum e fraction]Ordered By: Ivan Yancey on 07-24-2022 Hematocrit (Bld) [Volume fraction] 22.9 % 34.0-46.4 [facility] Hemoglobin [Mass/volume] in BloodOrdered By: Ivan Yancey on 07-24-2022 Hemoglobin (Bld) [Mass/Vol] 7.7 g/dL 11.8-15.4 [facility] Laboratory - CoagulationOrde red By: Ivan Yancey on 07-24-2022 PT Coag (PPP) [Time] 12.4 s 9.0-12.9 [facility] [place] LeukoReduced RBCon 3 LeukoReduced RBC TRANSFUSED 07/25/22 0024 Normal [facility] Leukocytes [#/volume] correc dino for nucleated erythrocytes in Blood by Automated counOrdered By: Ivan Yancey on 07-24-2022 WBC corrected for nucl RBC Auto (Bld) [#/Vol] 6.1 10*3/uL 3.8-11.6 [facility] Lymphocytes Auto (Bld) [#/Vo l]Ordered By: Ivan Yancey on 07-24-2022 Lymphocytes (Bld) [#/Vol] 1.1 10*3/uL 1.00-4.8 [facility] Lymphocytes/100 WBC Auto (Bl d)Ordered By: Ivan Yancey on 07-24-2022 Lymphocytes/100 WBC (Bld) 17.3 % . [facility] MCH Auto (RBC) [Entitic mass ]Ordered By: Ivan Yancey on 07-24-2022 MCH (RBC) [Entitic mass] 31.8 pg 24.7-34.3 [facility] MCHC Auto (RBC) [Mass/Vol]Or dered By: Ivan Yancey on 07-24-2022 MCHC (RBC) [Mass/Vol] 33.5 g/dL 32.0-35.[address] [facility] MCV Auto (RBC) [Entitic vol] Ordered By: Ivan Yancey on 07-24-2022 MCV (RBC) [Entitic vol] 95.0 fL 80-100 [facility] Monocyte distribution width [Entitic volume] in Blood by AutomatedOrdered By: Ivan Yancey on 07-24-2022 Monocyte distribution width Auto (Bld) [Entitic vol] 20.31 % 0.00-20.00 [facility] Comment on above: For adults in ED, MD W > 20.0 may be associated with a higher risk of sepsis during the first 12 hrs of hospital admission Monocytes Auto (Bld) [#/Vol] Ordered By: Ivan Yancey on 07-24-2022 Monocytes (Bld) [#/Vol] 0.6 10*3/uL 0.0-0.8 [facility] Monocytes/100 WBC Auto (Bld) Ordered By: Ivan Yancey on 07-24-2022 Monocytes/100 WBC (Bld) 10.0 % . [facility] Neutrophils Auto (Bld) [#/Vo l]Ordered By: Iavn Yancey on 07-24-2022 Neutrophils (Bld) [#/Vol] 4.3 10*3/uL 1.8-7.7 [facility] Neutrophils/100 WBC Auto (Bl d)Ordered By: Ivan Yancey on 07-24-2022 Neutrophils/100 WBC (Bld) 70.8 % . [facility] No Panel InformationOrdered By: Ivan Yancey on 07-24-2022 Estimated GFR (CKD-EPI) 25.874 mL/Min [facility] Creatinine Clearance (Chem 16.91 [facility] Nucleated erythrocytes [Pres ence] in Blood by Automated countOrdered By: Ivan Yancey on 07-24-2022 Nucleated RBC Auto Ql (Bld) 0.1 /100{WBC} 0-0.5 [facility] Partial Thromboplastin Timeo n 07-24-2022 aPTT Coag (Bld) [Time] 31.4 s Normal 25.1-36.5 [facility] Comment on above: Result Comment: PERF ORMED BY: [facility] [address] [place] [address] PATHOLOGIST DO ALL OPERATOR XAVIER PINEDA M.D. Performed By: #### C MP, CBC, PT, HS TROP, PTT #### [facility] [address] Platelet mean volume Auto (B ld) [Entitic vol]Ordered By: Ivan Yancey on 07-24-2022 Platelet mean volume (Bld) [Entitic vol] 8.8 fL 6.3-10.7 [facility] Platelet poor plasma interna tional normalized ratio (INR) by coagulation assay (relatOrdered By: Ivan Yancey on 07-24-2022 INR Coag (PPP) [Relative time] 1.1 {INR} [facility] Comment on above: INR Therapeutic Rang e A) Pre- and Peroperative OAT started two weeks before surgery. NOT HIP SURGERY: 1.5 - 2.5 HIP SURGERY: 2 - 3B) Primary and secondary prevention of venous THROMBOSIS: 2 - 3C) Active venous thrombosis, pulmonary embolismand prevention of recurrent venous thrombosis: 2 - 3D) Prevention of arterial thromboembolismincluding patients with mechanical heart valves: 3 - 4.5 Platelets Auto (Bld) [#/Vol] Ordered By: Ivan Yancey on 07-24-2022 Platelets (Bld) [#/Vol] 225 10*3/uL 150-450 [facility] Potassium [Moles/volume] in Serum or PlasmaOrdered By: Ivan Yancey on 07-24-2022 Potassium [Moles/Vol] 3.0 mmol/L 3.5-5.1 [facility] Protein [Mass/volume] in Ser um or PlasmaOrdered By: Ivan Yancey on 07-24-2022 Protein [Mass/Vol] 5.7 g/dL 6.4-8.9 [facility] Prothrombin Time INRon 07-24 INR Coag (PPP) [Relative time] 1.1 {INR} Normal [facility] Comment on above: Result Comment: INR Therapeutic Range A) Pre- and Peroperative OAT started two weeks before surgery. NOT HIP SURGERY: 1.5 - 2.5 HIP SURGERY: 2 - 3 B) Primary and secondary prevention of venous THROMBOSIS: 2 - 3 C) Active venous thrombosis, pulmonary embolism and prevention of recurrent venous thrombosis: 2 - 3 D) Prevention of arterial thromboembolism including patients with mechanical heart valves: 3 - 4.5 Performed By: #### C MP, CBC, PT, HS TROP, PTT #### [facility] [address] PT Coag (PPP) [Time] 12.4 s Normal 9.0-12.9 [facility] [place] Comment on above: Performed By: #### C MP, CBC, PT, HS TROP, PTT #### [facility] [address] RBC Auto (Bld) [#/Vol]Ordere d By: Ivan Yancey on 07-24-2022 RBC (Bld) [#/Vol] 2.41 10*6/uL 3.60-5.00 [facility] Serum or plasma albumin/glob ulin mass ratioOrdered By: Ivan Yancey on 07-24-2022 Albumin/Globulin [Mass ratio] 1.7 {ratio} [facility] Serum or plasma anion gap de terminationOrdered By: Ivan Yancey on 07-24-2022 Anion gap [Moles/Vol] 9.9 mmol/L 6.0-15.0 [facility] Sodium [Moles/volume] in Ser um or PlasmaOrdered By: Ivan Yancey on 07-24-2022 Sodium [Moles/Vol] 133 mmol/L 136-145 [facility] Stool Occult Blood (Guaiac)o n 07-24-2022 Stool Occult Blood (Guaiac) Occult Blood Negative for Occult Blood by Guaiac Methodology Reference range = Negative PERFORMED BY: [place] [address] PATHOLOGIST DO ALL OPERATOR XAVIER PINEDA M.D. Normal [facility] Comment on above: Performed By: #### C BC, BMP #### [facility] [address] Troponin I High Sensitivityo n 07-24-2022 Troponin I High Sensitivity 46.9 pg/mL High 0.0-15.0 [facility] Comment on above: Result Comment: PERF ORMED BY: [place] [address] PATHOLOGIST DO ALL OPERATOR XAVIER PINEDA M.D. Performed By: #### C MP, CBC, PT, HS TROP, PTT #### [facility] [address] Troponin I.cardiac [Mass/vol ume] in Serum or Plasma by Detection limit <= 0.01 ng/Ordered By: Ivan Yancey on 07-24-2022 Troponin I.cardiac DL <= 0.01 ng/mL [Mass/Vol] 46.9 pg/mL 0.0-15.0 [facility] Type and Screenon 07-24-2022 ABO and Rh group Nom (Bld) Blood group O Rh(D) negative [facility] Comment on above: Order Comment: Unacc eptable specimen due to hemolysis. Redraw reordered. Transfuse now? Y Number of units to transfuse now? 1 Result Comment: PERF ORMED BY: [place] [address] PATHOLOGIST DO ALL OPERATOR XAVIER PINEDA M.D. Urea nitrogen [Mass/volume] in Serum or PlasmaOrdered By: Ivan Yancey on 07-24-2022 Urea nitrogen [Mass/Vol] 10 mg/dL 7-25 [facility] WBC Auto (Bld) [#/Vol]Ordere d By: Ivan Yancey on 07-24-2022 WBC (Bld) [#/Vol] 6.1 10*3/uL 3.8-11.6 [facility] XR chest 1V portableon 07-24 XR chest 1V portable [facility] [place] [address] [place] [id number] XRay Report Signed Patient: Danyelle Henry MR#: [id number] 53 : 1940 Acct:[id number] Age/Sex: 81 / F ADM Date: 07/24/22 Loc: ER Room: Type: PRE ER Attending Dr: Copies to: Ivan Yancey PA-C Ordering Provider: Ivan Yancey PA-C Date of Service: 07/24/22 XR/XR chest 1V portable: GI BLEED PORTABLE AP ERECT CHEST 1411 hours CLINICAL HISTORY: GI bleed and fatigue COMPARISON: 04/22/2022 A dialysis catheter is again visualized on the right. The heart is borderline prominent. The hilar and mediastinal contours are similar. There is no vascular congestion. The lungs, as visualized, are clear. There is no effusion or pneumothorax. Chronic right rib cage deformity is again noted XR/XR chest 1V portable IMPRESSION: NO ACUTE FINDINGS Impression dictated by: Leigha Simms M.D.07/24/2022 2:26 PM Dictation Location: [place] [address] Transcribed By: [facility] 07/24/22 1426 Dictated By: Leigha Simms MD 07/24/22 142 Signed By: 07/24/[address] [facility] [address] CSPINE WO CONon 3 CT CSPINE WO CON CT CSPINE WO CON INDICATION: 81 years old; Female . CLINICAL HISTORY: Closed head trauma. TECHNIQUE: CT imaging of the cervical spine was performed. IV contrast: None. Dose reduction techniques were achieved by using automated exposure control and/or adjustment of mA and/or kV according to patient size and/or use of iterative reconstruction technique. COMPARISON: None available. FINDINGS: POSTOPERATIVE CHANGES: None. ALIGNMENT: Nonspecific straightening of the normal cervical curve. Mild torticollis concave to the right. COMPRESSION FRACTURES: Generalized bony demineralization. No fracture or vertebral body collapse is seen. No bone displacement is seen. No asymmetric widening of the facets is noted. PREVERTEBRAL SOFT TISSUES: Normal. CRANIOCERVICAL JUNCTION: There is a normal relationship of the occipital condyles, lateral masses of C1, and articular surfaces of C2. The base of the dens and body of C2 are intact. There are cystic changes present consistent with degeneration at the base of the dens. There is narrowing of the predental space associated with sclerosis and spurring consistent with degeneration. Thickening and calcification of the transverse ligament is noted. There is spurring arising from the superior aspect of the dens with pseudoarthrosis associated with the adjacent clivus. POSTERIOR FOSSA: Cerebellar tonsils are above the foramen magnum. Basilar artery calcification is seen. Calcification is seen in the V4 segment of the right vertebral artery. Disc levels: C2-C3: No disc herniation. No spinal canal or foraminal narrowing. C3-C4: Disc bulging and endplate osteophyte formation is seen with anterior osteophytes. There is calcification of the annulus posteriorly. Mild central canal stenosis. Facet degeneration. Neural foramina are patent. C4-C5: Disc space narrowing with partial trabeculation across a portion of the disc space. There is vertebral endplate degeneration, endplate osteophyte formation, bulky bridging anterior osteophytes, facet degeneration, and uncovertebral joint degeneration. There is normal appearance of the left neural foramen with moderate to severe right foraminal stenosis. C5-C6: Disc space narrowing, disc bulging, endplate osteophyte formation, vertebral endplate degeneration, bulky bridging anterior osteophyte formation, facet degeneration, and uncovertebral joint degeneration. Mild right and moderate left foraminal stenosis is noted. Mild central canal stenosis is noted. C6-C7: Disc space narrowing is seen. Bulky bridging anterior osteophytes. No focal disc herniation. Central canal and neural foramina are patent. C7-T1: No acute bridging anterior osteophyte formation. Central canal and neural foramina are patent. UPPER THORACIC SPINE: Calcification of the anterior spinous ligament at the T1-T2 and T2-T3 levels. The T2-T3 disc is hypoplastic. OTHER: Inhomogeneous appearance of the thyroid gland. Nonemergent thyroid ultrasound would be appropriate. IMPRESSION: 1. No acute fracture or vertebral body collapse. 2. Multilevel cervical and upper thoracic spondylosis. Electronically authenticated by: ZOILA GREGORY Date: 2022-06-21 22:31 Normal The [facility] CT HEAD WO CONon 06-22-2022 CT HEAD WO CON INDICATION: 81 years old; Female. Closed head trauma. TECHNIQUE: CT Head (ax/cor/sag reformats). Ionizing radiation dose reduced via iterative reconstruction/FBP blend and body size kV/mA adjustment. Comparison: None FINDINGS: POSTOPERATIVE CHANGES: None. BRAIN PARENCHYMA: No focal lesions. No mass effect. No midline shift or herniation. No intraparenchymal or extra-axial hemorrhage is seen. Patchy and confluent low-density is seen in the white matter without mass effect consistent with small vessel ischemic change. VENTRICLES/EXTRA-AXIAL SPACES: Widened, consistent with atrophy. Incidental note is made of a partially empty sella. SINUSES/MASTOIDS: The visualized sinuses are clear. There is thickening within individual mastoid air cells bilaterally. No coalescence of air cells is seen. The middle ears are clear. MSK: No displaced or depressed calvarial fracture is noted. OTHER: No hyperdense intraluminal thrombus is seen. Vascular calcifications are noted. IMPRESSION: 1. No acute intracranial abnormality. No hemorrhage or mass effect. 2. Small vessel ischemic changes. 3. Atrophy. 4. Vascular calcification. 5. Partially empty sella. Electronically authenticated by: ZOILA GREGORY Date: 2022-06-21 22:25 Normal The [facility] XR HIP RT 2 3V W PELVISon XR HIP RT 2 3V W PELVIS EXAM: XR HIP RT 2 3V W PELVIS HISTORY: Pain COMPARISON: Right hip x-ray dated 02/04/2019. TECHNIQUE: 3 views of the right hip FINDINGS: Mild diffuse bony demineralization is seen. No obvious acute fracture seen. Joint alignment is normal. Joint spaces are preserved. IMPRESSION: Limited examination due to mild diffuse bony demonstration. No definite acute displaced fracture or malalignment is seen. Electronically authenticated by: RENAE AYERS Date: 2022-06-21 23:35 Normal The [facility] Basic Metabolic Panelon 04-05 Anion gap [Moles/Vol] 19.8 mmol/L High 6.0-15.0 [facility] Comment on above: Performed By: #### C , BMP #### [address] Calcium [Mass/Vol] 9.1 mg/dL Normal 8.2-10.2 [facility] Comment on above: Performed By: #### C BC, BMP #### [facility] [address] Chloride [Moles/Vol] 101 mmol/L Normal 95-114 [facility] [place] Comment on above: Performed By: #### C BC, BMP #### [facility] [address] CO2 [Moles/Vol] 18.5 mmol/L Low 22.0-30.0 [facility] Comment on above: Performed By: #### C BC, BMP #### [facility] [address] Creatinine [Mass/Vol] 5.03 mg/dL High 0.44-1.03 [facility] Comment on above: Performed By: #### C BC, BMP #### [facility] [address] [place] [address] [place] Creatinine Clr Calc Pharmacy 6.19 [facility] Comment on above: Result Comment: PERF ORMED BY: [place] [address] PATHOLOGIST DO ALL OPERATOR XAVIER PINEDA M.D. Performed By: #### C BC, BMP #### [address] Estimated GFR ( Yanira 10 [facility] Comment on above: Result Comment: GFR estimated reference range: According to KDOQI guidelines, <60 ml/min/1.73m2 is sufficient to diagnose a patient with chronic kidney disease. Performed By: #### C BC, BMP #### [facility] [address] [place] [address] [place] Estimated GFR (Non- Am 8 [facility] Comment on above: Performed By: #### C BC, BMP #### [facility] [address] Glucose [Mass/Vol] 78 mg/dL Normal 70-100 [facility] Comment on above: Result Comment: [place] om Glucose Reference Range is dependent on time and content of last meal. Glucose of more than 200 mg/dL in a nonstressed, ambulatory subject supports the diagnosis of Diabetes Mellitus. ADA recommended reference range Performed By: #### C BC, BMP #### [facility] [address] Potassium [Moles/Vol] 3.3 mmol/L Low 3.5-5.1 [facility] Comment on above: Performed By: #### C BC, BMP #### [facility] [address] Sodium [Moles/Vol] 136 mmol/L Normal 136-146 [facility] Comment on above: Performed By: #### C BC, BMP #### [address] Urea nitrogen [Mass/Vol] 52 mg/dL High 9-23 [facility] Comment on above: Performed By: #### C BC, BMP #### [facility] [address] Basophils Auto (Bld) [#/Vol] Ordered By: Madison Monson on 04-22-2022 Basophils (Bld) [#/Vol] 0.1 10*3/uL 0.0-0.2 [facility] Basophils/100 WBC Auto (Bld) Ordered By: Madison Monson on 04-22-2022 Basophils/100 WBC (Bld) 0.7 % . F [facility] Complete Blood Count Auto Di ffon 04-22-2022 Basophils (Bld) [#/Vol] 0.1 10*3/uL Normal 0.0-0.2 [facility] Comment on above: Result Comment: PERF ORMED BY: [place] [address] PATHOLOGIST DO ALL OPERATOR XAVIER PINEDA M.D. Performed By: #### C BC, BMP #### [address] Basophils/100 WBC (Bld) 0.7 % Normal . F [facility] Comment on above: Performed By: #### C BC, BMP #### [facility] [address] Eosinophils (Bld) [#/Vol] 0.1 10*3/uL Normal 0.0-0.45 [facility] Comment on above: Performed By: #### C BC, BMP #### [facility] [facility] [address] Eosinophils/100 WBC (Bld) 1.0 % Normal . [facility] Comment on above: Performed By: #### C BC, BMP #### [address] Erythrocyte distribution width (RBC) [Ratio] 16.6 % High 11.9-15.3 [facility] Comment on above: Performed By: #### C BC, BMP #### [address] Hematocrit (Bld) [Volume fraction] 31.2 % Low 34.0-46.4 [facility] Comment on above: Performed By: #### C BC, BMP #### [address] Hemoglobin (Bld) [Mass/Vol] 10.2 g/dL Low 11.8-15.4 [facility] Comment on above: Performed By: #### C BC, BMP #### [address] Lymphocytes (Bld) [#/Vol] 1.3 10*3/uL Normal 1.00-4.8 [facility] Comment on above: Performed By: #### C BC, BMP #### [place] [address] [place] Lymphocytes/100 WBC (Bld) 15.2 % Normal . [facility] Comment on above: Performed By: #### C BC, BMP #### [address] MCH (RBC) [Entitic mass] 32.6 pg Normal 24.7-34.3 [facility] Comment on above: Performed By: #### C BC, BMP #### [facility] [address] MCV (RBC) [Entitic vol] 100.1 fL High 80-100 F [facility] Comment on above: Performed By: #### C BC, BMP #### [facility] [address] Mean Corpuscular HGB Conc 32.6 g/dL Normal 32.0-35.0 [facility] Comment on above: Performed By: #### C BC, BMP #### [address] Monocytes (Bld) [#/Vol] 0.7 10*3/uL Normal 0.0-0.8 [facility] Comment on above: Performed By: #### C BC, BMP #### [address] Monocytes/100 WBC (Bld) 8.0 % Normal . F [facility] Comment on above: Performed By: #### C BC, BMP #### [address] Neutrophils (Bld) [#/Vol] 6.5 10*3/uL Normal 1.8-7.7 [facility] Comment on above: Performed By: #### C BC, BMP #### [address] Neutrophils/100 WBC (Bld) 75.1 % Normal . [facility] Comment on above: Performed By: #### C BC, BMP #### [address] NRBC% 0.1 /100{WBC} Normal 0-0.5 [facility] Comment on above: Performed By: #### C BC, BMP #### [address] Platelet mean volume (Bld) [Entitic vol] 8.2 fL Normal 6.3-10.7 [facility] Comment on above: Performed By: #### C BC, BMP #### [place] [address] [place] Platelets (Bld) [#/Vol] 310 10*3/uL Normal 150-450 [facility] Comment on above: Performed By: #### C DIEGO, BMP #### [facility] [address] RBC (Bld) [#/Vol] 3.11 10*6/uL Low 3.60-5.00 [facility] Comment on above: Performed By: #### C DIEGO, BMP #### [facility] [address] [place] [address] [place] WBC (Bld) [#/Vol] 8.6 10*3/uL Normal 3.8-11.6 [facility] Comment on above: Performed By: #### C DIEGO, BMP #### [facility] [address] Creatinine and Glomerular fi ltration rate.predicted panel (S/P/Bld)Ordered By: Madison Monson on 04-22-2022 Creatinine [Mass/Vol] 5.03 mg/dL 0.44-1.03 [facility] Eosinophils Auto (Bld) [#/Vo l]Ordered By: Madison Monson on 04-22-2022 Eosinophils (Bld) [#/Vol] 0.1 10*3/uL 0.0-0.45 [facility] Eosinophils/100 WBC Auto (Bl d)Ordered By: Madison Monson on 04-22-2022 Eosinophils/100 WBC (Bld) 1.0 % . [facility] Erythrocyte distribution wid th Auto (RBC) [Ratio]Ordered By: Madison Monson on 04-22-2022 Erythrocyte distribution width (RBC) [Ratio] 16.6 % 11.9-15.3 [facility] Estimated glomerular filtrat ion rate (GFR) non- AmericanOrdered By: Madison Monson on 04-22-2022 GFR/1.73 sq M.predicted among non-blacks MDRD (S/P/Bld) [Vol rate/Area] 8 mL/Min [facility] Hematocrit Auto (Bld) [Volum e fraction]Ordered By: Madison Monson on 04-22-2022 Hematocrit (Bld) [Volume fraction] 31.2 % 34.0-46.4 [facility] Hemoglobin [Mass/volume] in BloodOrdered By: Madison Monson on 04-22-2022 Hemoglobin (Bld) [Mass/Vol] 10.2 g/dL 11.8-15.4 [facility] Leukocytes [#/volume] correc dino for nucleated erythrocytes in Blood by Automated counOrdered By: Madison Monson on 04-22-2022 WBC corrected for nucl RBC Auto (Bld) [#/Vol] 8.6 10*3/uL 3.8-11.6 [facility] Lymphocytes Auto (Bld) [#/Vo l]Ordered By: Madison Monson on 04-22-2022 Lymphocytes (Bld) [#/Vol] 1.3 10*3/uL 1.00-4.8 [facility] Lymphocytes/100 WBC Auto (Bl d)Ordered By: Madison Monson on 04-22-2022 Lymphocytes/100 WBC (Bld) 15.2 % . [facility] MCH Auto (RBC) [Entitic mass ]Ordered By: Madison Monson on 04-22-2022 MCH (RBC) [Entitic mass] 32.6 pg 24.7-34.3 [facility] MCHC Auto (RBC) [Mass/Vol]Or dered By: Madison Monson on 04-22-2022 MCHC (RBC) [Mass/Vol] 32.6 g/dL 32.0-35.[address] [facility] MCV Auto (RBC) [Entitic vol] Ordered By: Madison Monson on 04-22-2022 MCV (RBC) [Entitic vol] 100.1 fL 80-100 F [facility] Monocytes Auto (Bld) [#/Vol] Ordered By: Madison Monson on 04-22-2022 Monocytes (Bld) [#/Vol] 0.7 10*3/uL 0.0-0.8 [facility] Monocytes/100 WBC Auto (Bld) Ordered By: Madison Monson on 04-22-2022 Monocytes/100 WBC (Bld) 8.0 % . [facility] Neutrophils Auto (Bld) [#/Vo l]Ordered By: Madison Monson on 04-22-2022 Neutrophils (Bld) [#/Vol] 6.5 10*3/uL 1.8-7.7 [facility] Neutrophils/100 WBC Auto (Bl d)Ordered By: Madison Monson on 04-22-2022 Neutrophils/100 WBC (Bld) 75.1 % . [facility] No Panel InformationOrdered By: Madison Monson on 04-22-2022 Estimated GFR () 10 mL/Min [facility] Comment on above: GFR estimated refere nce range: According to KDOQI guidelines, <60 ml/min/1.73m2 is sufficient to diagnose a patient with chronic kidney disease. Pharmacy Creatinine Clearance (Chem 6.19 [facility] Nucleated erythrocytes [Pres ence] in Blood by Automated countOrdered By: Madison Monson on 04-22-2022 Nucleated RBC Auto Ql (Bld) 0.1 /100{WBC} 0-0.5 [facility] Platelet mean volume Auto (B ld) [Entitic vol]Ordered By: Madison Monson on 04-22-2022 Platelet mean volume (Bld) [Entitic vol] 8.2 fL 6.3-10.7 [facility] Platelets Auto (Bld) [#/Vol] Ordered By: Madison Monson on 04-22-2022 Platelets (Bld) [#/Vol] 310 10*3/uL 150-450 [facility] RBC Auto (Bld) [#/Vol]Ordere d By: Madison Monson on 04-22-2022 RBC (Bld) [#/Vol] 3.11 10*6/uL 3.60-5.00 [facility] Serum or plasma anion gap de terminationOrdered By: Madison Monson on 04-22-2022 Anion gap [Moles/Vol] 19.8 mmol/L 6.0-15.0 [facility] Serum or plasma calcium rufina urement (mass/volume)Ordered By: Madison Monson on 04-22-2022 Calcium [Mass/Vol] 9.1 mg/dL 8.2-10.2 [facility] Serum or plasma chloride santhosh surement (moles/volume)Ordered By: Madison Monson on 04-22-2022 Chloride [Moles/Vol] 101 mmol/L 95-114 [facility] Serum or plasma glucose rufina urement (mass/volume)Ordered By: Madison Monson on 04-22-2022 Glucose [Mass/Vol] 78 mg/dL 70-100 [facility] Comment on above: ADA recommended refe rence rangeRandom Glucose Reference Range is dependent on time and content of last meal. Glucose of more than 200 mg/dL in a nonstressed, ambulatory subject supports the diagnosis of Diabetes Mellitus. Serum or plasma potassium me asurement (moles/volume)Ordered By: Madison Monson on 04-22-2022 Potassium [Moles/Vol] 3.3 mmol/L 3.5-5.1 [facility] Serum or plasma sodium measu rement (moles/volume)Ordered By: Madison Monson on 04-22-2022 Sodium [Moles/Vol] 136 mmol/L 136-146 [facility] Serum or plasma total carbon dioxide measurement (moles/volume)Ordered By: Madison Monson on 04-22-2022 CO2 [Moles/Vol] 18.5 mmol/L 22.0-30.0 [facility] Serum or plasma urea nitroge n measurement (mass/volume)Ordered By: Madison Monson on 04-22-2022 Urea nitrogen [Mass/Vol] 52 mg/dL 9- [facility] WBC Auto (Bld) [#/Vol]Ordere d By: Madison Monson on 04-22-2022 WBC (Bld) [#/Vol] 8.6 10*3/uL 3.8-11.6 [facility] XR chest 1V portableon 04-22 XR chest 1V portable [facility] [place] [address] XRay Report Signed Patient: Danyelle Henry MR#: [id number] 53 : 1940 Acct:[id number] Age/Sex: 81 / F ADM Date: 04/22/22 Loc: [place] Room: Type: [facility] Attending Dr: Ken Haas MD Copies to: Ken Haas MD Ordering Provider: Ken Haas MD Date of Service: 04/22/22 XR/XR chest 1V portable: DIALYSIS CATH XR chest 1V portable 04/22/2022 8:46 AM SIGNS AND SYMPTOMS: Status post dialysis catheter placement, follow-up PROTOCOL: Frontal radiograph of the chest COMPARISON: 12/20/2018 FINDINGS: The trachea is midline. Atherosclerotic changes are present in the thoracic aorta. There is a dual lumen tunneled right IJ catheter was removed. The tip is in the superior vena cava distally. There is no pneumothorax. There is a similar deformity of the right upper chest wall. The heart and mediastinal structures are within normal limits. The lung parenchyma is clear. The bony thorax is intact. Degenerative changes are noted in the shoulders and thoracic spine. XR/XR chest 1V portable IMPRESSION: Interval placement of a dual-lumen tunneled right IJ catheter with the tip in the superior vena cava. No pneumothorax. Impression dictated by: Mathew Galarza M.D.04/22/2022 9:03 AM Dictation Location: [place] [address] Transcribed By: [facility] 04/22/22902 Dictated By: Mathew Galarza II, MD 04/22/22 09 Signed By: 04/22/22 09 [facility] Coding Summary.on 04-09-2022 Coding Summary. [id number] Gh0bWw+ PGhlYWQ+NI0ILWLmP39ffJDcjR6 AO7vPPK9CMBIBGCSETJ4SHY2ogJ O1VHimO1EkuqRj HhsofFFyOR65ZBf4RHA7tYfeHNn ygZ4yjEWnE0e6MfNbWB61yU40CM kdCXNcHoF1VyJhwmheaZLn I5fgPqEtjYUnXtt+PHRhYmxlIHd dDMJhROreVTQdGjBooKjiZF5dIi 9yZGVyLWNvbGxhcHNlOiBj v2xcCPUtUCnvJF5fmLdvJ9FyhHV 6ZTNkf5s6Bo17uID+XKKgHZG4qL cyJTjyx061ZtZln3hcHRR3 qNFcHNpmHJR3B68sa1Z7WSMyRNL tPNB2dST8qH3ytSjcvyxuD6EyrZ GxZjL8KIM4uIWpeU2adFfh exavyI1jYbt+K09ATL4UGJCCZX3 KBlv8G9DiXnniqKT+LD90DKJqMU 52gXVxbVFka4qflFc9QnPg JNEsAKQ0jUhnBLrse7UlRGQrB31 vcTZeh3K5NLNwfUvxeVLwHaQkzQ A7qO1xOHylpgsgo2mvtsmo Qgtgd7syll92nQ85J90iGCsiVQC mEHB2NQFqPHXwzLecsn9fmC0fQi 8+GAihx3tvy9bluJh3UiXm DTIgcdUjtMgjMII5v3QjLl42O7U cdSwqj7WeQfr0yn74qRTco2U5rY Z1UHsaRSVmtZ3jEYkpTyT3 PQYnJeHxoN53xWDdFUdmQp1vgDt uuXpdRO9tDRNqeyahVQEhqO4uWC JufJIowLvdFH6zAXFrphef i293EuUdYSH2YEMizMJfM7HosM3 tUcVtIGCjDIWsQ0ElcZXjYSouT5 46IOejMhO6ZJSaqiXiQ4Iw MXIgtAlbLuD4m8H5Jb7Qv3Odeqd fZJC9LWmfYVBiJtA0RbElLhM2N6 AgHul7NDUqrCddRF2zJ5Yf FNLjwbmomgxsmRO5OQEaAPVidB6 0vZQlPNkwVa7lb9P5n236EULaTO NmyT50Mz0qxCoeWAHpqFVE vU3rlpaew2ppfqgxDsGfAMBdSXf 3SRw4MLIswZwaBdVrNEZ4AnH0YK F5eBQscY1uaHeivfennS2w Oyc+Z97omS1sYCO1WOP2vaulCFZ cveWxAT88WG29H6JnCsnzyUEhaP U+KPBokeEqhRojFZ4rAjFo c8zvx6LdOBdtW2YhQBUhQPcbUzm 2OOQvCCX6nKY6gC6gCHKiLUzym8 S8wKW0R9QdehPdys2yz1yg GWPxJBsxP63qdLYqs4E3DDCjbYO 0SZZtqPupXmJkfV05Esu+PGNvbG zxt6VlQfley2ala0xxgGi4 PiKbVAWtjoMyaSuuQSI0l2CxZi2 2D26hJJybWNKqIUHjWIQmSVBhfA zygp7nnC5fWe9+PGNvbCB3 lAN2zZ6kWIQpEoR0OXdyY935KcV nhCGvHnhtl9hyp6vuiKs3VfUdXQ PixaWmwPcvHHV0u7HnCb67 F83fRUmaLFDlOJUsFGNzGFUakHr tsf6lqA4vZx0+FJ3nw8roqp55rK 48dHI+XXSzKNL9nMvyULlg XTQnfQ4aVXaaJaE1CXJuJsVszV3 9lYAsKApkUr2vnRsriWwbWB0kSE Tydlyfw061GnOcq7uzMEMf aLBhWYhfVDR0J37lh1Z2FBUhEKT xARU9gRF9aB3jxYpmwxzfgYTajP qjozQyuEmuBHnuHDijV910 IHRvcDsnPlBhdGllbnQgTmFtZTo 9K4LkAho7YCWrzWurGR8pjNDhWJ ieOh3guDibaOwlGB4zJXWx fqkal595UyOpi5ljDRDgjVGvURq tCQW5I03ya1K7WQQkQWIdTHC8aF E1yW7qqSkkzvvgtQEnoHtc ksTjsRgqMYvhARfeU453EUEvyQz gLtNksaEgNLYycHK1QQ30LO22iE Ebj2I7sYV5T9IgUUXjwgcq qjxkvMR8UIRcYOKkoB30Jj9kzPx kNm9iBINeTLC8VCXrkDTcP8RzoY 1oBeSfAHTrANRmV6PlhWFb CHxvE369BRusCuH1PRRzswRlU0S hZMQnsVmhVvZ6u3H4Bc4YV7G9OV 14FD75uNChf3R5dKP6E6Mg XIAytwjnrlzpdYK6ORNbPNZgyP8 2Kj5whZlyQa1eZOIlDXH2ZTCwoY LxD7ExkV3zOhReLGYoHMMa M5EcaAMrJTitU160DWqqAwF4MBT tplArF2DgQSWblNstZlB0l6B6Pe 7ODTs3LR87LB06zZNvn4E4 yUN0U9QsGSOqwkoqtxeykKP7AID sNCIshR27Hv5vkPeqNj9bKBRwFU C0DVLeeCXqY8NvwZ1qCwLo CDZhZXNwR4QfqHAfFYfdN715TQi pKqR2BPOezhUiT6HyGJZfeKllJe R1e9W4Af5CCYRiOW10OCT9 fAB4YT88SX82S7UuMsegoXNgzAN +PHRhYmxlIHdpZHRoPScxMDAlJy VrgJbnTA6gRv8rMGFnTRBa jUkxoTJsGxNuf1ikGRDiLTuhCF1 gmWdbX9BepKE1FIPtk2c0Vk04R4 7fM1RqyAQ+DDNhwNP2vEN1 bJ9oUuWtWoL1USvmJ596ReVpqMA iMdzsu9rvz2ffiWj7ZjL0CYKlos KhuGiuGBI4m0NuMe25T46n IHdpZHRoPSIxNSUiIHZhbGlnbj0 fpM8iBx5+NTEvyDA2vIO9yL2tBa DeXaU2OQatQ565HlFroMZo Rspwf1mqf2papFh3PwAqPNLowpX ftUffGTE1g8UlUl59F1EgcWilw8 GlStw0cd42pPFtc0A0zMM6 R3YqLRNltrgisYXvnLxgOZ4jLFP naxcwSNPpmF4eNAZrD4t6FpTzVd T8EWgdI6YjxgP3AKAycFEo VAaxOTI4H13wp6K0LBHiNCDvAVP 9dNS6qR6gdNeetrkxkIPpaUeqcq NebTsuLOlxEKimL884MWFt pLyfXXJbqQ1hLCWinFZmdJnmOQ3 sQINaxgvvGojMFi1LXzfmFWdJOW EgTDwvdGQ+ZJIjAWI8iHhd ZAtsBLHcvC6vYKPtE4c3GrLwMgY 5TAiaA4HyIUDasyzlCo64oL8aCs TnRiM6QUvkV3YiapM6QQTi wMBuFJazWOQ6W72cl6B1TWOtAKQ hCVS0gDO8cP3hmYqvutghyZLqtR qjegWpwVciQEezELleX794 NHXvvZntTbX0IxNpGbM1JCD3D5N jXmb5GMTdcIihPT6etTXxXUbmGd 4rcAhyjLrxAB4iZFWahniy WICbdF5fQFMgePNhqNqzBO5cYEX uuerax097VkIrZCB8POSifFGvT7 LvaR5vVgTcBOYnJMRqO3Gz zZMuPUvyA567DKvsTmW2BJRbxxW oV3TiRAFwsYkhHkE1k2Q3Gu94Nd BZZWFyczwvdGQ+PHRkIHN0 oAfjRTnaIXMolT0tWEPoD3x6LlN mPiG9NPbmZ8CnSMBgzscnAq28lG 8tYaRxOqU8QKguM8KqbfR1 YKMsbPWtOKgcSVX8M07lt0V5PIQ wIIPmBMD3aIP0yP5anZvbtgxksC VmdDsgdmVydGljYWwtYWxp Z583CCIpfQlqNdEfyDHlZAtyeGD +GBLkVPK7xNhqHOpaQDGunM0eJO MhD4h4MnSpMpA2JReeS5Ml XOHbvuqeZh16rM3rZfTnHiX8ZTf nY0HixhN4XGMpwZCfQZbnBQP2O7 8is6K4UKXrLQLbWMD3bTK0 nE0oeYojgbbuuQHzwCejzjGceWf nYNjuOEruQ724UJFxuFllZtEjTB RxDQ7kkRrcmVA+EQ15vd72 D8OfUffaFqm1WBNcMZT2eNZ5vR0 vAKZyCJrba9H9jKQ8E7ZnblRrwq 9ln9nmJJGnXNhgK42rtSHh j4P2ZXZjkRN4NTEfzWsuNhScpP0 3Oyc+AIXctQtwi0IiKyxgh3kvb4 ssmTe9FaKyCPFwckCrhRbz BDO2o4OcLx78Z98mUMgwJUGsOET uWKFuXMIygSijvn8ykP4aDq4+PG SopMX4sHL9eY7jRtLbKfJ4 CTelD911OhLkaIWqYiqjw4ijt4d byKn5JzHyRSVdoxKjiEpvDRK0y6 IoCq33U9DrdZwhq2JsGve2 ni31jQYvl7M3iDA6U1UkCHPnctn ixWZruRbnIC3xPACbnrcnYCGapS 9hOCIwO0t2SpNzBzW9DFkx E6AeydP2JZPwrBEdWQGjzBELcU1 rtyrqe8jcmuzhVrXeEBIxVWn9QT f7MBLfjFkgUzVzWNH2UuL8 IJE2lYMsgV9wdHfldhthwB1gXne +ZXg9r1mctXRbDO5esFE6AN00ZV 27dBQgc9O2rTH8P0NbAELq zzdphiojoQZ8RJKkZTExzH31Ym1 rsAqpPp7dFOIaHEI2HBOazCOqW1 VqkD4wHiVcMEMrHWRlO0Vr nWWkQFuwN172AKryWhV7JSDcqxN qD7QdNZYfyPahSnP6y8I4Zo0NIM 56IB66RZ26kTQmt2H7kVG5 L0KlQGXttutuavxtgGO5ETZrGDP paC40Cy6arVylFl3vZFBaLZE0CU FaeWZdS7PufS3oPrKzDOAc XKAeI9LgjSHrAYzwX543OTxzYjB 5JVCluwKaT9QeDGGedYzoQkR7n0 B1Dz7FGl46NQ95HE26dNLy d1C3oDD4U7YiNIUkbahfkuiycPK 0SHGrOHJwuT89Qa7exBazLx8rNF ZbFJF7SRFfhBVxH9CevD6r DpTqCOLrNPHrK6LpcEAmZDlcG15 3DOlfFrL8CJAcusNxE1AcSXBcuZ suKyA4q1O0Ne7KSZitytg6 O3CnLkoquWJ+RA94AVUsJS76nGN ccMGch7rhoCy5UrElVWIrUDY0cW nzKQmlc2OzZSPgA61xzIDc c2U6 (more content not included)... Normal [facility] ED Note-Physicianon 04-07-19 ED Note-Physician Basic Information Time Seen: Ronal MONGE, Elpidio [place]. 04/06/2022 12:03 Chief Complaint dialysis catheter started bleeding today History of Present Illness 81-year-old female reports to emergency department with a chief complaint of her dialysis catheter that started bleed today. Reports that she was able to receive most 2 weight reduction specialist of her dialysis treatment today, but when they removed the needle, and seem like it started to bleed. Reports that he did put pressure over this area, but continued to bleed. She states that she was sent over by the dialysis team due to the bleeding that was not stopping. She reports that she is in the office that it did stop there, but wanted to get it checked out. She states that she is currently on Eliquis, and to use heparin when she gets her dialysis. Reports that she is on Eliquis for blood clots in her legs. She denies any weaknesses or any trauma or injury to the dialysis catheter. States that she has had this catheter for a while. Review of Systems A 10 point review of systems is negative except as noted above. Medical and Surgical History: Reviewed and noted Social history: Lives at home Family History: Reviewed. Tobacco: denies Physical Exam Vitals & Measurements T: 36.5 ?C(Oral) HR: 96(Peripheral) RR: 20 BP: 130/94 SpO2: 99% HT: 154 cm WT: 51 kg BMI: 21.5 General: The patient appears well and in no apparent distress. Patient is resting comfortably on bed. Afebrile Skin: Warm, dry, no pallor noted. Right-sided chest catheter with tunneling, dried blood noted around this area, but with no active bleeding. Catheter appears to be in place with stitch still in place. Head: Normocephalic, atraumatic Neck: No JVD Eye: PERRLA, EOMI ENT: Moist mucus membranes Cardiovascular: Regular rate normal peripheral perfusion. Radial pulses +2 Respiratory: No respiratory distress no accessory muscle use no obvious audible wheezing Chest Wall: no deformity Musculoskeletal: normal ROM, no deformity, no swelling GI: No obvious distention Neurological: A&O moves all extremities equal strength and symmetry Psychiatric: Cooperative and appropriate Medical Decision Making MEDICAL DECISION MAKING Number and Complexity of Problems Differential Diagnosis: [] [facility] Data External documents reviewed: [] My EKG interpretation: [] My CT interpretation: [] My X-ray interpretation: [] My Ultrasound interpretation: [] Decision rules/scores evaluated: [] Discussed with: [] Treatment and Disposition ED Course: Patient was evaluated here in the emergency department and there was no bleeding over the catheter site. There was area of dried blood, but the catheter appeared to be in place, and was held together with stitch. No active bleeding. Patient is on Eliquis for blood thinners. We did walk the patient around here in the emergency department to make sure there was no active bleeding with physical activity. There was no active bleeding noted throughout her activity and stay here in emergency department. Due to this, I believe that this may be some irritation that caused some bleeding, and with her being on Eliquis, and exemplified the bleeding and made it worse. I discussed that I am comfortable with discharging her home with a bandage over the area. Discussed if it does bleed again, she can apply pressure over the area. Discussed that she needs to follow-up with her garage laborer for further evaluation as well. Patient was understanding of this. Shared decision making: Patient agreed with this and was agreeable. Understood process. Follow-up with your primary care provider in 3 to 5 days. If symptoms worsen, do not improve, or new symptoms arise please report back to emergency department for further evaluation. The patient was understanding and agreeable to plan moving forward. Code status: [] Assessment/Plan Bleeding from dialysis shunt (T82.838A: Hemorrhage due to vascular prosthetic devices, implants and grafts, initial encounter) Disposition Plan Patient Discharge Condition Stable Discharge Disposition to home Discharge Prescription List Prescriptions No active prescription medications Follow-up With When Contact Information FELIPE ERIC In 3 days 04/09/2022 [place] [phone] Business (1) Additional Instructions: Follow-up with your primary care provider in 3 to 5 days. If symptoms worsen, do not improve, or new symptoms arise please report back to emergency department for further evaluation. Continue follow-up with your garage laborer for further evaluation of your dialysis shunt. Patient Education [facility] Home Care Guide Attestation Patient seen and evaluated by the physician team assistant. Attending physician was present in the emergency department and supervised care. This visit was performed by both the physician and an APC. I performed all aspects of the MDM as documented. This report was transcribed using v (more content not included)... Normal [facility] Comment on above: Result Comment: Elec tronically Signed By: Elpidio Villeda PA-C\.br\Date and Time Signed: 04/06/22 13:09 EST\.br\Electronically Co-Signed By: Delfino Chan DO\.br\Date and Time Co-Signed: 04/07/22 15:24 EST Consent for Treatmenton Consent for Treatment [id number]:127 Normal [facility] Discharge Instructionson Discharge Instructions [id number]:127 Normal [facility] ED Clinical Summaryon 2022 ED Clinical Summary (Inserted Image. Shante ble to display) [place] [id number] ED Clinical Summary Person Information Name: DANYELLE HENRY [facility]ira/[facility] Age: 81 Years : 1940 Sex: Female Language: Nauruan PCP: FELIPE REYES MD Marital Status: Phone: [phone] Visit Id: Visit Reason: Dialysis shunt problem; SENT OVER BY [facility] Speciality: Acuity: 4 Enc Type: Emergency Med Service: Emergency Arrival: 04/06/2022 11:56:45 Discharge: 04/06/2022 13:21:02 LOS: 000 01:25 Checkin: 04/06/2022 11:56:45 Checkout: 04/06/2022 13:21:02 Dispo Type: Home (Routine DC) EVENTS: Event Name Event Status Request Date/Time Start Date/Time Complete Date/Time Arrive Complete 04/06/2022 11:56:45 04/06/2022 11:56:45 04/06/2022 11:56:45 Document Home Meds Request 04/06/2022 11:56:45 Triage Complete 04/06/2022 11:56:45 04/06/2022 12:07:47 04/06/2022 12:07:47 Bed Assign Complete 04/06/2022 12:00:24 04/06/2022 12:00:24 04/06/2022 12:00:24 Dr Exam Complete 04/06/2022 12:00:24 04/06/2022 12:03:35 04/06/2022 12:03:35 RN Exam Complete 04/06/2022 12:00:24 04/06/2022 12:18:23 04/06/2022 12:18:23 Registration Complete 04/06/2022 12:03:35 04/06/2022 13:01:10 04/06/2022 13:01:10 Dr Exam Complete 04/06/2022 12:04:45 04/06/2022 12:04:45 04/06/2022 12:04:45 Reg Complete Request 04/06/2022 13:01:10 Reg Bed Request Complete 04/06/2022 13:01:10 04/06/2022 13:01:10 04/06/2022 13:01:10 Discharge Complete 04/06/2022 13:08:49 04/06/2022 13:21:07 04/06/2022 13:21:07 Transfer Complete 04/06/2022 13:21:07 04/06/2022 13:21:07 04/06/2022 13:21:07 ADDRESS: [address] [place] [id number] PHYS DOC NOTES: MEDICAL INFORMATION: Prescriptions Given: Medications to Continue with No Changes Other Medications atropine-diphenoxylate 2.5-0.025mg By Mouth. calcitriol (calcitriol 0.25 mcg Cap) 1 Capsules By Mouth every day. cholecalciferol (Vitamin D3) 50,000 International unit By Mouth every week. levothyroxine (Synthroid 50 mcg Tab) 50mcg By Mouth every day. meclizine 25 Milligram By Mouth every day as needed as needed for nausea/vomiting. meloxicam 15 Milligram By Mouth. omeprazole (omeprazole 40 mg Cap-DR) 1 Capsules By Mouth every day. Refills: 2. zolpidem 10 Milligram By Mouth. PATIENT EDUCATION INFORMATION: Instructions: PICC Home Care Guide Follow up: With: Address: When: FELIPE REYES [address] [place] [id number] [facility] (1) In 3 days 04/09/2022 Comments: Follow-up with your primary care provider in 3 to 5 days. If symptoms worsen, do not improve, or new symptoms arise please report back to emergency department for further evaluation. Continue follow-up with your garage laborer for further evaluation of your dialysis shunt. DIAGNOSIS: Bleeding from dialysis shunt Normal [facility] ED Patient Summaryon 023 ED Patient Summary (Inserted Image. Shante ble to display) [address] [id number] Patient Discharge Instructions Person Information Name: DANYELLE HENRY Age: 81 Years Arrival Date: 04/06/2022 11:56:45 Discharge Diagnosis: Bleeding from dialysis shunt Primary Care Physician: FELIPE REYES MD Provider Information Primary Provider: Delfino Chan DO [address] Sql Developer:None The exam and treatment you received in the Emergency Department were for an urgent problem and are not intended as complete care. It is important that you follow up with a doctor, nurse practitioner, or physician?s team assistant for ongoing care. If your symptoms become worse or you do not improve as expected and you are unable to reach your usual health care provider, you should return to the Emergency Department. We are available 24 hours a day. DANYELLE HENRY has been given the following list of patient education materials, prescriptions and follow-up instructions: Follow-up Instructions: With: Address: When: FELIPE REYES [address] [place], [place] [id number] [facility] () In 3 days 04/09/2022 Comments: Follow-up with your primary care provider in 3 to 5 days. If symptoms worsen, do not improve, or new symptoms arise please report back to emergency department for further evaluation. Continue follow-up with your garage laborer for further evaluation of your dialysis shunt. In the event that this physician does not participate in your insurance network, please consult with your insurance company to find a nearby participating provider. Patient Education Materials: [facility] Home Care Guide A MESSAGE TO ALL PATIENTS REGARDING OPIOIDS PRESCRIPTION OPIOIDS: WHAT YOU NEED TO KNOW Prescription opioids can be used to help relieve komblphp-ci-sijuao pain and are often prescribed following a surgery or injury, or for certain health conditions. These medications can be an important part of the treatment but also come with serious risks. It is important to work with your healthcare provider to make sure you are getting the safest, most effective care. WHAT ARE THE RISKS AND SIDE EFFECTS OF OPIOID USE? Prescription opioids carry serious risks of addiction and overdose, especially with prolonged use. An opioid overdose, often marked by slowed breathing, can cause sudden . The use of prescription opioids can have a number of side effects as well, even when taken as directed: ? Tolerance?meaning you might need to take more of the medication for the same pain relief ? Physical dependence?meaning you have symptoms of withdrawal when a medication is stopped ? Increased sensitivity to pain ? Constipation ? Nausea, vomiting, and dry mouth ? Sleepiness and dizziness ? Confusion ? Depression ? Low levels of testosterone that can result in lower sex drive, energy, and strength ? Itching and sweating RISKS ARE GREATER WITH: ? History of drug misuse, substance use disorder, or overdose ? Mental health conditions (such as depression or anxiety) ? Sleep apnea ? Older age (65 years and older) ? Avoid alcohol while taking prescription opioids. Also, unless specifically advised by your health care provider, medications to avoid include: ? Benzodiazepines (such as Xanax or Valium) ? Muscle relaxants (such as Soma or Flexeril) ? Hypnotics (such as Ambien or Lunesta) ? Other prescription opioids KNOW YOUR OPTIONS Talk to your health care provider about ways to manage your pain that don?t involve prescription opioids. Some of these options may actually work better and have fewer risks and side effects. Options may include: ? Pain relievers such as acetaminophen, ibuprofen, and naproxen ? Some medication that are also used for depression or seizures ? Physical therapy and exercise ? Cognitive behavioral therapy, a psychological, goal-directed approach, in which patients learn how to modify physical, behavioral, and emotional triggers of pain and stress. IF YOU ARE PRESCRIBED OPIOIDS FOR PAIN: ? Never take opioids in greater amounts or more often than prescribed. ? Follow up with your primary health care provider. o Work together to create a plan on how to manage your pain. o Talk about ways to help manage your pain that don?t involve prescription opioids. o Talk about any and all concerns and side effects. ? Help prevent misuse and abuse o Never sell or share prescription opioids. o Never use another person?s prescription opioids. ? Store prescription opioids in a secure place and out of reach of others (this may include visitors, children, friends, and family). ? Safely dispose of unused prescription opioids: Find your community drug take-back program or your pharmacy mail-back program, or flush them down the toilet, following guidance from the Food and Drug Administration (www.fda.gov/Drugs/Resource sForYou). ? Visit www (more content not included)... Normal [facility] Pre-Arrival Noteon Pre-Arrival Note Pre-Arrival Summary Name: danyelle black, Current Date: 04/06/2022 12:00:25 EST Gender: Female Date of : Age: 81 Pre-Arrival Type: EMS ETA: 04/06/2022 10:19:00 EST Primary Care Physician: Presenting Problem: bleeding dialysis cath Pre-Arrival User: Delfino Chan DO Referring Source: Location: DC Completion Date/Time: 04/06/2022 09:49:00 [facility] Emergency Department Pre-Hospital Report Form Vital Signs: bleeding [place]ed [place] [facility] [place] Pre-Hospital Report: Treatment in Route: Response to Treatment: Misc. Issues: Normal [facility] Albumin [Mass/volume] in Ser um or PlasmaOrdered By: Eva Goodman on 03-20-2022 Albumin [Mass/Vol] 2.9 g/dL 3.2-5.5 [facility] Creatinine and Glomerular fi ltration rate.predicted panel (S/P/Bld)Ordered By: Eva Goodman on 03-20-2022 Creatinine [Mass/Vol] 4.71 mg/dL 0.44-1.03 [facility] Estimated glomerular filtrat ion rate (GFR) non- AmericanOrdered By: Eva Goodman on 03-20-2022 GFR/1.73 sq M.predicted among non-blacks MDRD (S/P/Bld) [Vol rate/Area] 9 mL/Min [facility] No Panel InformationOrdered By: Eva Goodman on 03-20-2022 Estimated GFR () 11 mL/Min [facility] Comment on above: GFR estimated refere nce range: According to KDOQI guidelines, <60 ml/min/1.73m2 is sufficient to diagnose a patient with chronic kidney disease. Pharmacy Creatinine Clearance (Chem 6.95 [facility] Phosphate [Mass/volume] in S olga or PlasmaOrdered By: Eva Goodman on 03-20-2022 Phosphate [Mass/Vol] 4.3 mg/dL 2.5-4.6 [facility] [place] Renal Function Panelon 03-20 Albumin [Mass/Vol] 2.9 g/dL Low 3.2-5.5 [facility] Comment on above: Performed By: #### C BC #### [facility] [address] [place] [address] [place] Anion gap [Moles/Vol] 11.6 mmol/L Normal 6.0-15.0 [facility] Comment on above: Performed By: #### C BC #### [facility] [address] [place] [id number] [place] Calcium [Mass/Vol] 9.1 mg/dL Normal 8.2-10.2 [facility] Comment on above: Performed By: #### C BC #### [facility] [address] [place] [address] [place] Chloride [Moles/Vol] 102 mmol/L Normal 95-114 [facility] [place] Comment on above: Performed By: #### C BC #### [facility] [address] [place] [id number] [place] CO2 [Moles/Vol] 24.0 mmol/L Normal 22.0-30.0 [facility] Comment on above: Performed By: #### C BC #### [facility] [address] [place] [address] [place] Creatinine [Mass/Vol] 4.71 mg/dL High 0.44-1.03 [facility] Comment on above: Performed By: #### C BC #### [facility] [address] [place] [id number] [place] Creatinine Clr Calc Pharmacy 6.95 Normal [facility] Comment on above: Result Comment: PERF ORMED BY: [facility] [address] [facility] [place] [address] PATHOLOGIST DO ALL OPERATOR XAVIER PINEDA M.D. Performed By: #### C BC #### [facility] [address] [place] [address] [place] Estimated GFR ( Yanira 11 [facility] Comment on above: Result Comment: GFR estimated reference range: According to KDOQI guidelines, <60 ml/min/1.73m2 is sufficient to diagnose a patient with chronic kidney disease. Performed By: #### C BC #### [facility] [address] [place] [address] [place] Estimated GFR (Non- Am 9 [facility] Comment on above: Performed By: #### C BC #### [address] Glucose [Mass/Vol] 79 mg/dL Normal 70-100 [facility] Comment on above: Result Comment: Nelson Glucose Reference Range is dependent on time and content of last meal. Glucose of more than 200 mg/dL in a nonstressed, ambulatory subject supports the diagnosis of Diabetes Mellitus. ADA recommended reference range Performed By: #### C BC #### [place] [address] [place] Phosphate [Mass/Vol] 4.3 mg/dL Normal 2.5-4.6 [facility] [place] Comment on above: Performed By: #### C BC #### [place] [address] [place] Potassium [Moles/Vol] 3.6 mmol/L Normal 3.5-5.1 [facility] Comment on above: Performed By: #### C BC #### [facility] [address] [place] [id number] [place] Sodium [Moles/Vol] 134 mmol/L Low 136-146 [facility] Comment on above: Performed By: #### C BC #### [facility] [address] [place] [id number] [place] Urea nitrogen [Mass/Vol] 30 mg/dL High 9-23 [facility] Comment on above: Performed By: #### C BC #### [facility] [address] [place] [id number] [facility] Serum or plasma anion gap de terminationOrdered By: Eva Goodman on 03-20-2022 Anion gap [Moles/Vol] 11.6 mmol/L 6.0-15.0 [facility] Serum or plasma calcium rufina urement (mass/volume)Ordered By: Eva Goodman on 03-20-2022 Calcium [Mass/Vol] 9.1 mg/dL 8.2-10.2 [facility] Serum or plasma chloride santhosh surement (moles/volume)Ordered By: Eva Goodman on 03-20-2022 Chloride [Moles/Vol] 102 mmol/L 95-114 [facility] [place] Serum or plasma glucose rufina urement (mass/volume)Ordered By: Eva Goodman on 03-20-2022 Glucose [Mass/Vol] 79 mg/dL 70-100 [facility] Comment on above: ADA recommended refe rence rangeRandom Glucose Reference Range is dependent on time and content of last meal. Glucose of more than 200 mg/dL in a nonstressed, ambulatory subject supports the diagnosis of Diabetes Mellitus. Serum or plasma potassium me asurement (moles/volume)Ordered By: Eva Goodman on 03-20-2022 Potassium [Moles/Vol] 3.6 mmol/L 3.5-5.1 [facility] Serum or plasma sodium measu rement (moles/volume)Ordered By: Eva Goodman on 03-20-2022 Sodium [Moles/Vol] 134 mmol/L 136-146 [facility] Serum or plasma total carbon dioxide measurement (moles/volume)Ordered By: Eva Goodman on 03-20-2022 CO2 [Moles/Vol] 24.0 mmol/L 22.0-30.0 [facility] Serum or plasma urea nitroge n measurement (mass/volume)Ordered By: Eva Goodman on 03-20-2022 Urea nitrogen [Mass/Vol] 30 mg/dL 9-23 [facility] Glucose Glucometer (BldC) [M ass/Vol]Ordered By: Ken Haas on 03-19-2022 Glucose [Mass/Vol] 84 mg/dL [facility] Comment on above: Random Glucose Refer ence Range is dependent on time and content of last meal. Glucose of more than 200 mg/dL in a nonstressed, ambulatory subject supports the diagnosis of Diabetes Mellitus. Glucose Poct Glucometerson 1 05-20-2021 Glucose [Mass/Vol] 84 mg/dL Normal [facility] Comment on above: Result Comment: Nelson om Glucose Reference Range is dependent on time and content of last meal. Glucose of more than 200 mg/dL in a nonstressed, ambulatory subject supports the diagnosis of Diabetes Mellitus. PERFORMED BY: [place] [address] PATHOLOGIST DO ALL OPERATOR XAVIER PINEDA M.D. Performed By: #### C BCNO #### [address] Potassiumon 03-19-2022 Potassium [Moles/Vol] 3.4 mmol/L Low 3.5-5.1 [facility] Comment on above: Result Comment: PERF ORMED BY: [place] [address] PATHOLOGIST DO ALL OPERATOR XAVIER PINEDA M.D. Performed By: #### K #### [address] Basic Metabolic Panelon 12-0 Anion gap [Moles/Vol] 15.4 mmol/L High 6.0-15.0 [facility] Comment on above: Performed By: #### C BC, BMP #### [address] Calcium [Mass/Vol] 9.8 mg/dL Normal 8.2-10.2 [facility] Comment on above: Result Comment: PERF ORMED BY: [place] [address] PATHOLOGIST DO ALL OPERATOR XAVIER PINEDA M.D. Performed By: #### C BC, BMP #### [place] [address] [place] Chloride [Moles/Vol] 97 mmol/L Normal 95-114 [facility] [place] Comment on above: Performed By: #### C BC, BMP #### [facility] [address] CO2 [Moles/Vol] 24.4 mmol/L Normal 22.0-30.0 [facility] Comment on above: Performed By: #### C BC, BMP #### [facility] [address] Creatinine [Mass/Vol] 4.49 mg/dL High 0.44-1.03 [facility] Comment on above: Performed By: #### C BC, BMP #### [facility] [address] [place] [address] [place] Estimated GFR ( Yanira 11 [facility] Comment on above: Result Comment: GFR estimated reference range: According to KDOQI guidelines, <60 ml/min/1.73m2 is sufficient to diagnose a patient with chronic kidney disease. Performed By: #### C BC, BMP #### [facility] [address] [place] [address] [place] Estimated GFR (Non- Am 9 [facility] Comment on above: Performed By: #### C BC, BMP #### [facility] [address] Glucose [Mass/Vol] 89 mg/dL Normal 70-100 [facility] Comment on above: Result Comment: [place] Glucose Reference Range is dependent on time and content of last meal. Glucose of more than 200 mg/dL in a nonstressed, ambulatory subject supports the diagnosis of Diabetes Mellitus. ADA recommended reference range Performed By: #### C BC, BMP #### [facility] [address] [place] [address] [place] Potassium [Moles/Vol] 3.8 mmol/L Normal 3.5-5.1 [facility] Comment on above: Performed By: #### C BC, BMP #### [facility] [address] [place] [address] [place] Sodium [Moles/Vol] 133 mmol/L Low 136-146 [facility] Comment on above: Performed By: #### C BC, BMP #### [facility] [address] Urea nitrogen [Mass/Vol] 34 mg/dL High 12-26 [facility] Comment on above: Performed By: #### C BC, BMP #### [facility] [address] Basophils Auto (Bld) [#/Vol] Ordered By: Ken Haas on 03-05-2022 Basophils (Bld) [#/Vol] 0.0 10*3/uL 0.0-0.2 [facility] Basophils/100 WBC Auto (Bld) Ordered By: Ken Haas on 03-05-2022 Basophils/100 WBC (Bld) 0.7 % . F [facility] Complete Blood Count Auto Di ffon 03-05-2022 Basophils (Bld) [#/Vol] 0.0 10*3/uL Normal 0.0-0.2 [facility] Comment on above: Result Comment: PERF ORMED BY: [place] [address] PATHOLOGIST DO ALL OPERATOR XAVIER PINEDA M.D. Performed By: #### C DIEGO, BMP #### [address] Basophils/100 WBC (Bld) 0.7 % Normal . F [facility] Comment on above: Performed By: #### C BC, BMP #### [place] [address] [place] Eosinophils (Bld) [#/Vol] 0.1 10*3/uL Normal 0.0-0.45 [facility] Comment on above: Performed By: #### C BC, BMP #### [address] Eosinophils/100 WBC (Bld) 1.4 % Normal . [facility] Comment on above: Performed By: #### C BC, BMP #### [address] Erythrocyte distribution width (RBC) [Ratio] 14.4 % Normal 11.9-15.3 [facility] Comment on above: Performed By: #### C BC, BMP #### [address] Hematocrit (Bld) [Volume fraction] 34.1 % Normal 34.0-46.4 [facility] Comment on above: Performed By: #### C BC, BMP #### [address] Hemoglobin (Bld) [Mass/Vol] 11.3 g/dL Low 11.8-15.4 [facility] Comment on above: Performed By: #### C BC, BMP #### [address] Lymphocytes (Bld) [#/Vol] 1.5 10*3/uL Normal 1.00-4.8 [facility] Comment on above: Performed By: #### C BC, BMP #### [address] Lymphocytes/100 WBC (Bld) 20.1 % Normal . [facility] Comment on above: Performed By: #### C BC, BMP #### [address] MCH (RBC) [Entitic mass] 31.6 pg Normal 24.7-34.3 [facility] Comment on above: Performed By: #### C BC, BMP #### [address] MCV (RBC) [Entitic vol] 94.9 fL Normal 80-100 F [facility] Comment on above: Performed By: #### C BC, BMP #### [address] Mean Corpuscular HGB Conc 33.3 g/dL Normal 32.0-35.0 [facility] Comment on above: Performed By: #### C BC, BMP #### [address] Monocytes (Bld) [#/Vol] 0.6 10*3/uL Normal 0.0-0.8 [facility] Comment on above: Performed By: #### C BC, BMP #### [facility] [address] [place] [address] [place] Monocytes/100 WBC (Bld) 8.2 % Normal . F [facility] Comment on above: Performed By: #### C BC, BMP #### [facility] [address] [place] [address] [place] Neutrophils (Bld) [#/Vol] 5.3 10*3/uL Normal 1.8-7.7 [facility] Comment on above: Performed By: #### C BC, BMP #### [facility] [address] Neutrophils/100 WBC (Bld) 69.6 % Normal . [facility] Comment on above: Performed By: #### C BC, BMP #### [facility] [address] NRBC% 0.1 /100{WBC} Normal 0-0.5 [facility] Comment on above: Performed By: #### C BC, BMP #### [facility] [address] Platelet mean volume (Bld) [Entitic vol] 8.4 fL Normal 6.3-10.7 [facility] Comment on above: Performed By: #### C BC, BMP #### [facility] [address] [place] [address] [place] Platelets (Bld) [#/Vol] 307 10*3/uL Normal 150-450 [facility] Comment on above: Performed By: #### C BC, BMP #### [facility] [address] [place] [address] [place] RBC (Bld) [#/Vol] 3.59 10*6/uL Low 3.60-5.00 [facility] Comment on above: Performed By: #### C BC, BMP #### [facility] [address] [place] [address] [place] WBC (Bld) [#/Vol] 7.6 10*3/uL Normal 3.8-11.6 [facility] Comment on above: Performed By: #### C BC, BMP #### [facility] [address] Creatinine and Glomerular fi ltration rate.predicted panel (S/P/Bld)Ordered By: Ken Haas on 03-05-2022 Creatinine [Mass/Vol] 4.49 mg/dL 0.44-1.03 [facility] Eosinophils Auto (Bld) [#/Vo l]Ordered By: Ken Haas on 03-05-2022 Eosinophils (Bld) [#/Vol] 0.1 10*3/uL 0.0-0.45 [facility] Eosinophils/100 WBC Auto (Bl d)Ordered By: Ken Haas on 03-05-2022 Eosinophils/100 WBC (Bld) 1.4 % . [facility] Erythrocyte distribution wid th Auto (RBC) [Ratio]Ordered By: Ken Haas on 03-05-2022 Erythrocyte distribution width (RBC) [Ratio] 14.4 % 11.9-15.3 [facility] Estimated glomerular filtrat ion rate (GFR) non- AmericanOrdered By: Ken Haas on 03-05-2022 GFR/1.73 sq M.predicted among non-blacks MDRD (S/P/Bld) [Vol rate/Area] 9 mL/Min [facility] Hematocrit Auto (Bld) [Volum e fraction]Ordered By: Ken Haas on 03-05-2022 Hematocrit (Bld) [Volume fraction] 34.1 % 34.0-46.4 [facility] Hemoglobin [Mass/volume] in BloodOrdered By: Ken Haas on 03-05-2022 Hemoglobin (Bld) [Mass/Vol] 11.3 g/dL 11.8-15.4 [facility] Leukocytes [#/volume] correc dino for nucleated erythrocytes in Blood by Automated counOrdered By: Ken Haas on 03-05-2022 WBC corrected for nucl RBC Auto (Bld) [#/Vol] 7.6 10*3/uL 3.8-11.6 [facility] Lymphocytes Auto (Bld) [#/Vo l]Ordered By: Ken Haas on 03-05-2022 Lymphocytes (Bld) [#/Vol] 1.5 10*3/uL 1.00-4.8 [facility] Lymphocytes/100 WBC Auto (Bl d)Ordered By: Ken Haas on 03-05-2022 Lymphocytes/100 WBC (Bld) 20.1 % . [facility] MCH Auto (RBC) [Entitic mass ]Ordered By: Ken Haas on 03-05-2022 MCH (RBC) [Entitic mass] 31.6 pg 24.7-34.3 [facility] MCHC Auto (RBC) [Mass/Vol]Or dered By: Ken Haas on 03-05-2022 MCHC (RBC) [Mass/Vol] 33.3 g/dL 32.0-35.[address] [facility] MCV Auto (RBC) [Entitic vol] Ordered By: Ken Haas on 03-05-2022 MCV (RBC) [Entitic vol] 94.9 fL 80-100 F [facility] Monocytes Auto (Bld) [#/Vol] Ordered By: Ken Haas on 03-05-2022 Monocytes (Bld) [#/Vol] 0.6 10*3/uL 0.0-0.8 [facility] Monocytes/100 WBC Auto (Bld) Ordered By: Ken Haas on 03-05-2022 Monocytes/100 WBC (Bld) 8.2 % . F [facility] Neutrophils Auto (Bld) [#/Vo l]Ordered By: Ken Haas on 03-05-2022 Neutrophils (Bld) [#/Vol] 5.3 10*3/uL 1.8-7.7 [facility] Neutrophils/100 WBC Auto (Bl d)Ordered By: Ken Haas on 03-05-2022 Neutrophils/100 WBC (Bld) 69.6 % . [facility] No Panel InformationOrdered By: Ken Haas on 12-01-2022 Estimated GFR () 11 mL/Min [facility] Comment on above: GFR estimated refere nce range: According to KDOQI guidelines, <60 ml/min/1.73m2 is sufficient to diagnose a patient with chronic kidney disease. Pharmacy Creatinine Clearance (Chem N/A [facility] Nucleated erythrocytes [Pres ence] in Blood by Automated countOrdered By: Ken Haas on 03-05-2022 Nucleated RBC Auto Ql (Bld) 0.1 /100{WBC} 0-0.5 [facility] Platelet mean volume Auto (B ld) [Entitic vol]Ordered By: Ken Haas on 03-05-2022 Platelet mean volume (Bld) [Entitic vol] 8.4 fL 6.3-10.7 [facility] Platelets Auto (Bld) [#/Vol] Ordered By: Ken Haas on 03-05-2022 Platelets (Bld) [#/Vol] 307 10*3/uL 150-450 [facility] RBC Auto (Bld) [#/Vol]Ordere d By: Ken Haas on 03-05-2022 RBC (Bld) [#/Vol] 3.59 10*6/uL 3.60-5.00 [facility] Serum or plasma anion gap de terminationOrdered By: Ken Haas on 03-05-2022 Anion gap [Moles/Vol] 15.4 mmol/L 6.0-15.0 [facility] Serum or plasma calcium rufina urement (mass/volume)Ordered By: Ken Haas on 03-05-2022 Calcium [Mass/Vol] 9.8 mg/dL 8.2-10.2 [facility] Serum or plasma chloride santhosh surement (moles/volume)Ordered By: Ken Haas on 03-05-2022 Chloride [Moles/Vol] 97 mmol/L 95-114 [facility] [place] Serum or plasma glucose rufina urement (mass/volume)Ordered By: Ken Haas on 03-05-2022 Glucose [Mass/Vol] 89 mg/dL 70-100 [facility] Comment on above: ADA recommended refe rence rangeRandom Glucose Reference Range is dependent on time and content of last meal. Glucose of more than 200 mg/dL in a nonstressed, ambulatory subject supports the diagnosis of Diabetes Mellitus. Serum or plasma potassium me asurement (moles/volume)Ordered By: Ken Haas on 03-05-2022 Potassium [Moles/Vol] 3.8 mmol/L 3.5-5.1 [facility] Serum or plasma sodium measu rement (moles/volume)Ordered By: Ken Haas on 03-05-2022 Sodium [Moles/Vol] 133 mmol/L 136-146 [facility] Serum or plasma total carbon dioxide measurement (moles/volume)Ordered By: Ken Haas on 03-05-2022 CO2 [Moles/Vol] 24.4 mmol/L 22.0-30.0 [facility] Serum or plasma urea nitroge n measurement (mass/volume)Ordered By: Ken Haas on 03-05-2022 Urea nitrogen [Mass/Vol] 34 mg/dL 9- [facility] WBC Auto (Bld) [#/Vol]Ordere d By: Ken Haas on 03-05-2022 WBC (Bld) [#/Vol] 7.6 10*3/uL 3.8-11.6 [facility] US map hemodial access BILon 02-23-2022 US map hemodial access MILENA [facility] [place] [address] Ultrasound Report Signed Patient: Danyelle Henry MR#: [id number] 53 : 1940 Acct:[id number] Age/Sex: 81 / F ADM Date: 02/17/22 Loc: [facility] Room: Type: [facility] Attending Dr: eKn Haas MD Ordering Provider: Ken Haas MD Date of Service: 02/17/22 US/US map hemodial access MILENA: N18.6 Copies to: Ken Haas MD Bilateral upper extremity vein mapping examination Indication for study: End-stage renal disease with need for dialysis access PROCEDURE: B-mode imaging and color-flow duplex scanning is used to interrogate the venous anatomy of both upper extremities. In the right arm the cephalic vein is not adequate in either the forearm or the upper arm. The upper arm basilic vein on the right arm is potential usable for creation of a fistula and is just under 3 mm near the antecubital space and then up to 8 mm near the axilla. The subclavian and axillary veins are patent on the right. In the patient's left upper extremity there is been previous creation of a basilic vein fistula and the basilic and cephalic veins are not visualized. The axillary vein remains patent as does the s ubclavian vein. The brachial artery is just under 5 mm and the radial artery is 2 mm. / map hemodial access MILENA IMPRESSION: The only access options for autologous fistula creation be the right upper arm basilic vein. In the left upper extremity there is a failed fistula but it appears a prosthetic graft could be placed as the axillary vein remains patent. Impression dictated by: Ken Haas M.D.02/23/2022 1:14 PM Dictation Location: VASCP[facility]-PC1 Tech: Dominga Ames Transcribed By: LUZ MARINA 02/23/22 1314 Dictated By: Ken Haas MD 02/23/22 1313 Signed By: 02/23/22 1314 [facility] VANCOMYCIN TROUGHon 01-20-20 VANCOMYCIN TROUGH 13.3 ug/ml Normal 5.0-20.0 The [facility] Comment on above: Performed By: #### V ANCT #### [facility] Laboratory [address] [address] [address] Hubert Andrews ECG 12 lead ECGon 01-09-2022 ECG 12 lead ECG [facility] [place] [address] Electrocardiograph Report Signed Patient: Danyelle Henry MR#: [id number] 54 : 1940 Acct:[id number] Age/Sex: 81 / F ADM Date: 01/09/22 Loc: ER Room: Type: [facility] ER Attending Dr: Ordering Provider: Delgado Eagle DO Date of Service: 01/09/2210/24/1842 ECG/ECG 12 lead ECG: Recheck/Abnormal Lab/Rx Copies to: Test Reason : Blood Pressure : 146/068 mmHG Vent. Rate : 082 BPM Atrial Rate : 082 BPM P-R Int : 148 ms QRS Dur : 094 ms QT Int : 406 ms P-R-T Axes : 060 055 077 degrees QTc Int : 474 ms Normal sinus rhythm Nonspecific ST abnormality Abnormal ECG When compared with ECG of 12-JAN-2019 10:33, Confirmed by DELGADO EAGLE DO ([id number]) on 01/11/2022 6:04:30 AM Referred By: Electronically Signed By:DELGADO EAGLE DO Transcribed By: MUS Signed By Delgado Eagle DO 0604 [facility] Intraoperative Noteon 2017 Intraoperative Note [id number]#1.00[facility] History and Physicalon 01-18 History and Physical [id number]#1.00[facility] Provider Orderson 01-18-2017 Provider Orders [id number]#[address] [place] [address] Coding Summaryon 12-31-2016 Coding Summary CODING DATE: 017 [facility] STATUS: Home PAYOR: Medicare MC APC DESCRIPTION 5431 Level 1 Nerve Procedures ADMIT DX: REASON FOR VISIT DX: G56.01 Carpal tunnel syndrome, right upper limb FINAL DX: PRINCIPAL: G56.01 Carpal tunnel syndrome, right upper limb SECONDARY: I25.10 Atherosclerotic heart disease of [place] coronary artery without angina pectoris I12.9 Hypertensive chronic kidney disease with stage 1 through stage 4 chronic kidney disease, or unspecified chronic kidney disease N18.4 Chronic kidney disease, stage 4 (severe) Z95.5 Presence of coronary angioplasty implant and graft PYMT PROC APC STAT DESCRIPTION DOCTOR NAME DATE 30949 5436 J1 Neuroplasty and/or Aurelio Wheeler And 12/28/2016 transposition; median nerve at carpal tunnel RT Right side (used to identify procedures performed on the right side of the body) NOTE: The code number assigned matches the documented diagnosis and / or procedure in the patient's chart. However, the narrative phrase printed from the coding software may appear abbreviated, or result in slightly different terminology. Coded By: Rebeca Hogue Date Saved: 12/31/2016 10:25 am [facility] Consent Formson 12-29-2016 Consent Forms [id number]#1.00OT[facility] Discharge Instructionson Discharge Instructions [id number]#1.00OT[facility] Outside Recordson 12-29-2016 Outside Records [id number]#1.00OT[facility] Anesthesia Noteon 12-28-2016 Anesthesia Note Patient: EN HENRY : 76 years Sex: FEMALE : [birth year]Associated Diagnoses: NoneAuthor: Luisito Jones MDPostoperative InformationPost Operative Note: Post Anesthesia Care Unit.Health StatusAllergies:Allergic Reactions (All)Severity Not DocumentedPenicillin- Hives.Physical ExaminationVS/MeasurementsV ital Signs12/28/16 14:24 EDT Temperature Temporal Artery 36.6 DegC Peripheral Pulse Rate 79 bpm Respiratory Rate 18 br/min Systolic Blood Pressure 119 mmHg Diastolic Blood Pressure 62 mmHg SpO2 100 % Oxygen Flow Rate 6 L/min Oxygen Therapy Simple maskGeneral: No acute distress.Respiratory: Respirations are non-labored.Neurologic: Alert, Oriented.Review / ManagementCondition: Stable.AssessmentAnesthetic outcomeNo anesthetic complications noted.Adequate pain relief.No Complaint of nausea and vomiting.PlanTransfer/ Discharge: Patient can be discharged from PACU when criteria met.Condition stable.[Electronically Signed on: 12/28/2016 14:38 EDT] Luisito Jones MD[Verified on: 12/28/2016 14:38 EDT] Luisito Jones MD [facility] Anesthesia Note Patient: EN HENRY : 76 years Sex: FEMALE : [birth year]Associated Diagnoses: NoneAuthor: Luisito Jones MDPreoperative InformationAnesthesia history: Patient history: No difficult intubation, No malignant hyperthermia. Family history: No malignant hyperthermia.Review of SystemsRespiratory: No shortness of breath, No apnea.Cardiovascular: stent 8 years ago, No chest pain.Gastrointestinal: Heartburn.Health StatusAllergies:Allergic Reactions (All)Severity Not DocumentedPenicillin- Hives.Current medications:Home Medications (13) ActiveAdvair Diskus 100 mcg-50 mcg inhalation powder 2 puff(s), INH, BIDalbuterol 90 mcg/inh inhalation aerosol 2 puff(s), PRN, INHamLODIPine 5 mg oral tablet 5 mg = 1 tab(s), PO, Dailyatorvastatin 80 mg oral tablet 80 mg = 1 tab(s), PO, Dailycalcitriol 0.25 mcg oral capsule 0.25 mcg = 1 cap(s), PO, MWFCalcium, Magnesium and Phosphorus oral tablet 1 tab(s), PO, DailyFish Oil oral capsule 1 cap(s), PO, DailyFlonase 50 mcg/inh nasal spray 2 spray(s), Each Nostril, Dailylevothyroxine 50 mcg (0.05 mg) oral capsule 50 mcg = 1 cap(s), PO, Dailypromethazine 25 mg oral tablet 25 mg = 1 tab(s), PRN, PO, h9pvnivKUNvc 50 mg oral tablet 50 mg = 1 tab(s), PRN, PO, i0fgYcwzhpp B12 500 mcg oral tablet 500 mcg = 1 tab(s), PO, DailyVitamin D3 50,000 intl units oral capsule 50,000 International_Unit = 1 cap(s), PO, qWednesdayProblem list (past medical history):All ProblemsAsthma / SNOMED CT 524468863 / ConfirmedBulging lumbar disc / SNOMED CT 4498190924 / ConfirmedFibromyalgia / SNOMED CT 112400291 / ConfirmedHistory of coronary artery stent placement / SNOMED CT 1432531878 / ConfirmedHypercholesteremia / SNOMED CT 81706450 / ConfirmedHypertension / SNOMED CT 5901911972 / ConfirmedHypothyroidism / SNOMED CT 04615517 / ConfirmedIBS (irritable bowel syndrome) / SNOMED CT 39893736 / ConfirmedKidney failure / SNOMED CT 07702230 / ConfirmedScoliosis / SNOMED CT 650205379 / ConfirmedResolved: Depression / SNOMED CT 246202202KbwcjplbzMvrpio History:No family history items have been selected or recorded.Procedure history:Coronary artery stent ([id number]) in 2006 at 66 Years.Gastric bypass (3546228831) in 1968 at 28 Years.Abdominal hysterectomy (953354982).Cholecystectomy (01484572).Breast lumpectomy (2043788534).Comments:2016 10:06 - Abby Hill ZLg6Vnalyfw of tonsillectomy (8875730484).Hemorrhoidecto my (93327521).Social History No active social history items have been recorded..Physical ExaminationVS/MeasurementsV ital Signs (last 24 hrs) Last Charted Heart Rate Peripheral 70 bpm (DEC 28 10:20)Resp Rate 16 br/min (DEC 28 10:20)SBP H 166mmHg (DEC 28 10:45)DBP 72 mmHg (DEC 28 10:45)SpO2 97 % (DEC 28 10:20)Airway: Mallampati classification: I (soft palate, fauces, uvula, pillars visible). Mouth: Within normal limits.Respiratory: Lungs are clear to auscultation, Respirations are non-labored.Cardiovascular: Normal rate, Regular rhythm.Review / ManagementLaboratory ResultsPlanAmerican Society of Anesthesiologists#(ASA) physical status classification: Class III.Anesthetic Preoperative PlanAnesthesia: Monitored anesthesia care. Anesthetic plan, risks, benefits, and alternatives discussed with the patient and/or family. Patient verbalized understanding. Family/Guardian present. Informed consent was given. Consent was signed by the patient.[Electronically Signed on: 12/28/2016 14:10 EDT] Luisito Jones MD[Verified on: 12/28/2016 14:10 EDT] Luisito Jones MD [facility] Coding Summaryon 12-28-2016 Coding Summary CODING DATE: 017 [facility] STATUS: Home PAYOR: Medicare MC APC DESCRIPTION 5733 Level 3 Minor Procedures ADMIT DX: REASON FOR VISIT DX: Z01.810 Encounter for preprocedural cardiovascular examination FINAL DX: PRINCIPAL: Z01.810 Encounter for preprocedural cardiovascular examination SECONDARY: I10 Essential (primary) hypertension PYMT PROC APC STAT DESCRIPTION DOCTOR NAME DATE NOTE: The code number assigned matches the documented diagnosis and / or procedure in the patient's chart. However, the narrative phrase printed from the coding software may appear abbreviated, or result in slightly different terminology. Coded By: Medina Gross Date Saved: 12/28/2016 01:39 pm [facility] Inpatient Clinical Summaryon 12-28-2016 Inpatient Clinical Summary [facility] SURGERYClinical Discharge SummaryPERSON INFORMATIONName DANYELLE HENRY Age 76 Years [birth year]Sex FEMALE Language Nauruan PCP Felipe Reyes EMarital Status Med Service Ambulatory SurgeryMRN [id number] Acct# Arrival 12/28/16 10:07:27Visit Reason SURGERY - RELEASE RIGHT CARPAL TUNNEL Acuity LOS 012 03:03Address:[address] [address]:PROVIDER INFORMATIONVITALS INFORMATIONVital Sign Triage LatestTemp OralTemp Temporal 37.1 DegC 37.1 DegCTemp IntravascularTemp AxillaryTemp Umlgbj20 Sat 97 % 95 %Respiratory Rate 16 br/min 18 br/minPeripheral Pulse Rate 70 bpm 66 bpmApical Heart RateBlood Pressure 140 mmHg / 68 mmHg 125 mmHg / 74 mmHgComment:MEDICAL INFORMATIONAllergy Info:penicillinPrescription s Given:Home Meds Displayalbuterol (albuterol 90 mcg/inh inhalation aerosol) 2 puff(s), INH, PRN: for wheezing, # 6.7 gm, 0 Refill(s)amLODIPine (amLODIPine 5 mg oral tablet) 1 tab(s) ( 5 mg ), PO, Daily, # 90 tab(s), 0 Refill(s)atorvastatin (atorvastatin 80 mg oral tablet) 1 tab(s) ( 80 mg ), PO, Daily, # 90 tab(s), 0 Refill(s)calcitriol (calcitriol 0.25 mcg oral capsule) 1 cap(s) ( 0.25 mcg ), PO, MWF, # 30 cap(s), 0 Refill(s)cholecalciferol (Vitamin D3 50,000 intl units oral capsule) 1 cap(s) ( 50,000 International_Unit ), PO, qWednesday, # 12 cap(s), 0 Refill(s)cyanocobalamin (Vitamin B12 500 mcg oral tablet) 1 tab(s) ( 500 mcg ), PO, Daily, # 30 tab(s), 0 Refill(s)fluticasone nasal (Flonase 50 mcg/inh nasal spray) 2 spray(s), Each Nostril, Daily, 0 Refill(s)fluticasone-salmet haritha (Advair Diskus 100 mcg-50 mcg inhalation powder) 2 puff(s), INH, BID, # 28 EA, 0 Refill(s)levothyroxine (levothyroxine 50 mcg (0.05 mg) oral capsule) 1 cap(s) ( 50 mcg ), PO, Daily, # 30 cap(s), 0 Refill(s)multivitamin with minerals (Calcium, Magnesium and Phosphorus oral tablet) 1 tab(s), PO, Daily, # 100 tab(s), 0 Refill(s)omega-3 polyunsaturated fatty acids (Fish Oil oral capsule) 1 cap(s), PO, Daily, 0 Refill(s)promethazine (promethazine 25 mg oral tablet) 1 tab(s) ( 25 mg ), PO, q6hr, Instructions: q6-8 hr for nausea that accompanies migraines, PRN: for nausea/vomiting, # 60 tab(s), 0 Refill(s)traMADol (traMADol 50 mg oral tablet) 1 tab(s) ( 50 mg ), PO, q6hr, PRN: for pain, # 30 tab(s), 0 Refill(s)Medication List:Continue These Medications:albuterol (albuterol 90 mcg/inh inhalation aerosol) 2 puff(s) Inhalation as needed for for wheezingamLODIPine (amLODIPine 5 mg oral tablet) 5 mg Oral every dayatorvastatin (atorvastatin 80 mg oral tablet) 80 mg Oral every daycalcitriol (calcitriol 0.25 mcg oral capsule) 0.25 mcg Oral Wednesday, Wednesday and Wednesdaycholecalciferol (Vitamin D3 50,000 intl units oral capsule) 50,000 International_Unit Oral Every Wednesdaycyanocobalamin (Vitamin B12 500 mcg oral tablet) 500 mcg Oral every dayfluticasone nasal (Flonase 50 mcg/inh nasal spray) 2 spray(s) Each Nostril every dayfluticasone-salmeterol (Advair Diskus 100 mcg-50 mcg inhalation powder) 2 puff(s) Inhalation 2 times a daylevothyroxine (levothyroxine 50 mcg (0.05 mg) oral capsule) 50 mcg Oral every daymultivitamin with minerals (Calcium, Magnesium and Phosphorus oral tablet) 1 tab(s) Oral every dayomega-3 polyunsaturated fatty acids (Fish Oil oral capsule) 1 cap(s) Oral every daypromethazine (promethazine 25 mg oral tablet) 25 mg Oral Every 6 hours as needed for for nausea/vomiting q6-8 hr for nausea that accompanies migrainestraMADol (traMADol 50 mg oral tablet) 50 mg Oral Every 6 hours as needed for for painComment:Lab and Radiology ResultsLaboratory or Other Results This Visit (last charted value for your 12/28/2016 visit) No Laboratory or Other Results This VisitDIET & ACTIVITYPatient Activity Level:Patient Diet:RegularPatient Activity Restrictions:DISCHARGE INFORMATIONDischarge Disposition:Discharge Location:DEPART REASON INCOMPLETE INFORMATIONPATIENT EDUCATION INFORMATIONInstructions:Edna hernandez- [facility] Carpal [facility])Follow up:With: Address: When:Aurelio Liam[address] [place] [address] Business (2) 01/05/2017 11:00 AMWith: Address: When:Felipe Reyes [address] [place], [place] [address] Business (1)DIAGNOSISCarpal tunnel syndrome on rightComment:PHYS DOC NOTES Normal [facility] Inpatient Patient Summaryon 12-28-2016 Inpatient Patient Summary [address] [id number] patient Discharge InstructionsName: DANYELLE HENRY MIODOB: 38 Address: [address] [place], [place] [address]Primary Care Provider:Name: Felipe Reyes: Discharge Diagnosis: Carpal tunnel syndrome on rightIf you received any narcotics, sedation, or any other medication that causes drowsiness for the next 24 hours, unless otherwise directed:? Do not drive a car.? Do not operate machinery such as power tools, lawn mowers, drills, sewing machines, or stoves? Avoid alcoholic beverages and drugs for allergies, nerves, or sleep? Do not make important personal or business decisions or sign any legal documentsNorwalk Memorial Hospital would like to thank you for allowing us to assist you with your healthcare needs. The following includes patient education materials and information regarding your injury/illness.DANYELLE HENRY has been given the following list of follow-up instructions, prescriptions, and patient education materials:Follow-up InstructionsWith: Address: When:Aurelio Smith[address] [place] [address] Business (2) 01/05/2017 11:00 AMWith: Address: When:Felipe Reyes [address] [place], [place] [address] Business (1)MedicationsDuring the course of your visit, your medication list was updated with the most current information. The details of those changes are reflected below:Medications to Continue That Have Not ChangedOther Medicationsalbuterol (albuterol 90 mcg/inh inhalation aerosol) 2 puff(s) Inhalation as needed for wheezing.amLODIPine (amLODIPine 5 mg oral tablet) 1 tab(s) Oral every day.atorvastatin (atorvastatin 80 mg oral tablet) 1 tab(s) Oral every day.calcitriol (calcitriol 0.25 mcg oral capsule) 1 cap Oral Wednesday, Wednesday and Wednesday.cholecalciferol (Vitamin D3 50,000 intl units oral capsule) 1 cap Oral Every Wednesday.cyanocobalamin (Vitamin B12 500 mcg oral tablet) 1 tab(s) Oral every day.fluticasone nasal (Flonase 50 mcg/inh nasal spray) 2 spray(s) Each Nostril every day.fluticasone-salmeterol (Advair Diskus 100 mcg-50 mcg inhalation powder) 2 puff(s) Inhalation 2 times a day.levothyroxine (levothyroxine 50 mcg (0.05 mg) oral capsule) 1 cap Oral every day.multivitamin with minerals (Calcium, Magnesium and Phosphorus oral tablet) 1 tab(s) Oral every day.omega-3 polyunsaturated fatty acids (Fish Oil oral capsule) 1 cap Oral every day.promethazine (promethazine 25 mg oral tablet) 1 tab(s) Oral Every 6 hours as needed for nausea/vomiting. q6-8 hr for nausea that accompanies migraines.traMADol (traMADol 50 mg oral tablet) 1 tab(s) Oral Every 6 hours as needed for pain.It is important to always keep an active list of medications available so that you can share with other providers and manage your medications appropriately. As an additional courtesy, we are also providing you with your final active medications list that you can keep with you.albuterol (albuterol 90 mcg/inh inhalation aerosol) 2 puff(s) Inhalation as needed for wheezing.amLODIPine (amLODIPine 5 mg oral tablet) 1 tab(s) Oral every day.atorvastatin (atorvastatin 80 mg oral tablet) 1 tab(s) Oral every day.calcitriol (calcitriol 0.25 mcg oral capsule) 1 cap Oral Wednesday, Wednesday and Wednesday.cholecalciferol (Vitamin D3 50,000 intl units oral capsule) 1 cap Oral Every Wednesday.cyanocobalamin (Vitamin B12 500 mcg oral tablet) 1 tab(s) Oral every day.fluticasone nasal (Flonase 50 mcg/inh nasal spray) 2 spray(s) Each Nostril every day.fluticasone-salmeterol (Advair Diskus 100 mcg-50 mcg inhalation powder) 2 puff(s) Inhalation 2 times a day.levothyroxine (levothyroxine 50 mcg (0.05 mg) oral capsule) 1 cap Oral every day.multivitamin with minerals (Calcium, Magnesium and Phosphorus oral tablet) 1 tab(s) Oral every day.omega-3 polyunsaturated fatty acids (Fish Oil oral capsule) 1 cap Oral every day.promethazine (promethazine 25 mg oral tablet) 1 tab(s) Oral Every 6 hours as needed for nausea/vomiting. q6-8 hr for nausea that accompanies migraines.traMADol (traMADol 50 mg oral tablet) 1 tab(s) Oral Every 6 hours as needed for pain.Take only the medications listed above. Contact your doctor prior to taking any medications not on this list.Diet & ActivityPatient Activity Level:Patient Diet: RegularPatient Activity Restrictions:Comment:Magaly sanchez education materials, if any, will display belowDR. PULLIAM POST OPERATIVE CARPEL TUNNEL INSTRUCTIONSSURGEONS WRITTEN INSTRUTCTIONS:-Keep your hand elevated above your elbow for the first 24 hours after surgery-Wiggle your fingers frequently while awake-DO NOT lift heavy objects or regulatory affairs specialist forcefully with your hand-Change your dressing in 1 day and apply an aleja bandage as directed with the thumb tucked towards the palm of your hand. This keeps the tension off your incision-You may shower in 1 day but do not submerge your hand under water. Put a 4x4 gauze and the aleja bandage back on after you shower-If you have any problems or concerns, please call the office at [phone]-Follow up as scheduled Viruses or BacteriaWhat?s got you sick?Antibiotics only treat bacterial infections. Viral illnesses cannot be treated with antibiotics. When an antibiotic is not prescribed, ask your healthcare professional for tips on how to relieve symptoms and feel better. Usual CauseIllnessVirusesBacteria Antibiotic NeededCold/Runny Nose NOBronchitis/Chest Cold (in otherwise healthy children and adults) NOWhooping Cough YesFlu NOStrep Throat YesSore Throat (except strep) NOFluid in the middle ear (otitis media with effusion) NOUrinary Tract Infection YesAntibiotics Aren?t Always the Answerwww.cdc.gov/getsmart GET SMART Know When Antibiotics [place] Department of Health and Human ServicesSelect Medical [facility] for Disease Control and Prevention December 2013 [facility] MAGR Intraoperative Recordon 12-28-2016 MAGR Intraoperative Record MAGR Intra-Op Record Summary Primary Physician: Aurelio Wheeler DO Finalized Date/Time: 12/28/16 14:34:45 Pt. Name: ELAINE DANYELLE MIO /Sex: 1940 FEMALE Med Rec #: [id number] Physician: Aurelio Wheeler DO Financial #: [id number] Pt. Type: D Room/Bed: / Admit/Disch: 12/28/16 10:07:27 - Institution: Case Times MAGR Entry 1 Patient In Room Time 12/28/16 13:55:00 Out Room Time 12/28/16 14:28:00 Anesthesia Start Time 12/28/16 13:55:00 Stop Time 12/28/16 14:22:00 Surgery Start Time 12/28/16 14:08:00 Stop Time 12/28/16 14:19:00 Last Modified By: Dana Lopez RN 12/28/16 14:34:22 Case Attendance MAGR Entry 1 Entry 2 Entry 3 Case Attendee Aurelio Wheeler Satya S MD Long, Barbara RN Andrew DO Role Performed Surgeon - Primary Anesthesiologist of Shirt Ironer Record Time In 12/28/16 13:55:00 12/28/16 13:55:00 12/28/16 13:55:00 Time Out 12/28/16 14:28:00 12/28/16 14:28:00 12/28/16 14:28:00 Procedure Carpal Tunnel Carpal Tunnel Carpal Tunnel Release(Right) Release(Right) Release(Right) Last Modified By: Dana Lopez RN, Brittany F RN Sofiak, Brittany F RN 12/28/16 14:34:25 12/28/16 14:34:25 12/28/16 14:34:25 Entry 4 Entry 5 Entry 6 Case Attendee Dana Lopez RN, Lynn A RN Radloff, Leigh-Daria REFINERY OPERATOR [employer] Role Performed Shirt Ironer Cnc Supervisor Scrub Personnel Time In 12/28/16 13:55:00 12/28/16 13:55:00 12/28/16 13:55:00 Time Out 12/28/16 14:28:00 12/28/16 14:28:00 12/28/16 14:28:00 Procedure Carpal Tunnel Carpal Tunnel Carpal Tunnel Release(Right) Release(Right) Release(Right) Last Modified By: Dana Lopez RN, Brittany F RN Sofiak, Brittany F RN 12/28/16 14:34:25 12/28/16 14:34:25 12/28/16 14:34:25 Surgical Procedures MAGR Pre-Care Text: A.20 Verifies operative procedure, surgical site, and laterality Im.150 Develops individualized plan of care Entry 1 Procedure Carpal Tunnel Release Primary Procedure Yes Primary Surgeon Aurelio Wheeler DO Surgeon Comment RELEASE RIGHT CARPAL Start 12/28/16 14:08:00 TUNNEL Stop 12/28/16 14:19:00 Anesthesia Type MAC Surgical Service Orthopedics Wound Class Clean Last Modified By: Dana Lopez RN 12/28/16 14:34:31 Post-Care Text: O.730 The patient's care is consistent with the individualized perioperative plan of care General Case Data MAGR Pre-Care Text: A.350.1 Classifies surgical wound Entry 1 Case Information OR MAGR OR 02 Case Level Level 3 Wound Class Clean Specialty Orthopedics ASA Class 3 Diagnosis Preop Diagnosis RIGHT CARPAL TUNNEL Postop Same As Preop Yes SYNDROME Postop Diagnosis RIGHT CARPAL TUNNEL SYNDROME Last Modified By: Dana Lopez RN 12/28/16 14:13:56 Post-Care Text: O.760 Patient receives consistent and comparable care regardless of the setting Time Out MAGR Entry 1 Time out date/time 12/28/16 14:07:00 All team members Yes have introduced themselves by name and role Surgeon, Yes Surgeon reviews Yes anesthesia, nurse critical or confirm patient, unexpected steps, site, procedure operative duration, anticipated blood loss Anesthesia team Yes Nursing team Yes reviews any reviews sterility patient-specific (including concerns indicator results) and equipment issues/concerns Antibiotic Yes Is essential N/A prophylaxis given imaging displayed? within the last 60 minutes Last Modified By: Dana Lopez RN 12/28/16 14:08:44 Patient Positioning MAGR Pre-Care Text: A.280 Identifies baseline musculoskeletal status Im.40 Positions the patient Im.80 Applies safety devices Entry 1 Procedure Carpal Tunnel Body Position Supine Release(Right) Left Arm Position Extended on padded arm Right Arm Position Extended on padded arm board board Left Leg Position Extended Right Leg Position Extended Feet Uncrossed? Yes Press Points Checked Yes Positioning Device Arm Boards, Arm Strap, Outcome Met (O.80) Yes Pillow, Safety Strap Last Modified By: Dana Lopez RN 12/28/16 14:10:09 Post-Care Text: E.290 Evaluates musculoskeletal status O.80 Patient is free from signs and symptoms of injury related to positioning Skin Prep MAGR Pre-Care Text: A.30 Verifies allergies Im.270 Performs skin preparation Im.270.1 Implements protective measures to prevent skin and tissue injury due to chemical sources Entry 1 Skin Prep Syntegrity Prep Agents (Im.270) Povidone-Iodine Prep By Carmen Lomeli RN Prep Area (Im.270) Elbow and forearm, Hand Prep Area Details Right Skin Prep Agent Dry Yes Without Pooling Hair Removal Syntegrity Hair Removal Methods No hair removal performed Outcome Met (O.100) Yes Last Modified By: Dana Lopez RN 12/28/16 14:11:49 Post-Care Text: E.10 Evaluates for signs and symptoms of physical injury to skin and tissue O.100 Patient is free from signs and symptoms of chemical injury Counts Verification MAGR Pre-Care Text: A.20 Verifies operative procedure, surgical site, and laterality A.20.2 Assesses the risk for unintended retained foreign body Im.20 Performs required counts Entry 1 Procedure Carpal Tunnel Release(Right) Counts Verification Initial Counts Items included in Sponges, Sharps Initial Counts Manual the Initial Count Method Initial Counts Juanita Garcia RE[facility], Initial Count Time 12/28/16 14:05:00 Performed By Dana Lopez RN Counts Verification Final Counts Items Included in Sponges, Sharps Final Count Method Manual Final Count Final Count Status Correct Final Counts Carmen Lomeli RN, Performed By Juanita Garcia [facility] Final Count Time 12/28/16 14:18:00 Surgeon notified of Yes final counts status Outcome Met (O.20) Yes Last Modified By: Dana Lopez RN 12/28/16 14:19:36 Post-Care Text: E.50 Evaluates results of the surgical count O.20 Patient is free from unintended retained foreign objects Tourniquet MAGR Pre-Care Text: A.240 Assesses baseline skin condition Im.120 Implements protective measures to prevent skin or tissue injury due to mechanical sources Entry 1 Tourniquet Type TOURNQUET/AC OR2 (3603) Cuff Size 6 cm Setting 200 mmHg Placement Arm upper Padding (Im.120) Yes Placement Details Right Tourniquet Times Inflated 12/28/16 14:08:00 Deflated 12/28/16 14:13:00 Total Time 5 Applied By Aurelio Wheeler Removed By Aurelio Wheeler DO Outcome Met (O.60) Yes Last Modified By: Dana Lopez RN 12/28/16 14:14:45 Post-Care Text: E.10 Evaluates for signs and symptoms of physical injury to skin and tissue O.60 Patient is free from sign and symptoms of injury caused by extraneous objects Cautery MAGR Pre-Care Text: A.240 Assesses baseline skin condition A.40 Verifies presence of prosthetics or corrective devices Im.50 Implements protective measures to prevent injury due to electrical sources Entry 1 ESU Type Electrosurgical Unit ESU Settings Syntegrity Cut Setting 30 Coag Setting 30 Bipolar Setting 0 Grounding Pad Details Grounding Pad Yes Verified By Carmne Lomeli RN Needed? Grounding Pad Site Table Grounding Pad Within Expiration Yes Date? Outcome Met (O.10) Yes Last Modified By: Dana Lopez RN 12/28/16 14:19:25 Post-Care Text: E.10 Evaluates for signs and symptoms of physical injury to skin and tissue O.10 Patient is free from signs and symptoms of injury related to thermal sources Medication Administration MAGR Pre-Care Text: A.210 Identifies physiological status Im.220 Administers prescribed medications Entry 1 Time Administered 12/28/16 14:09:00 Medication LIDOCAINE 1 % Route of Admin SubQ Dose 3 mL Volume 20 mL By Aurelio Wheeler DO Outcome Met (O.130) Yes Last Modified By: Dana Lopez RN 12/28/16 14:13:09 Post-Care Text: E.20 Evaluates response to medications O.130 Patient receives appropriately administered medication(s) Dressing/Packing MAGR Pre-Care Text: A.350 Assesses susceptibility for infection Im.290 Administer care to wound sites Entry 1 Skin Prep Agent Yes Site Hand Removed Prior to Dressing? Site Details Right Wound closure Primary Dressing Item Details Dressing Item 4x4's, ABD, Roller Gauze (Im.290) Outcome Met Yes Last Modified By: Dana Lopez RN 12/28/16 14:13:29 Post-Care Text: E.200 Evaluates progress of wound healing O.200 Patient's wound perfusion is consistent with or improved from baseline levels Departure from OR MAGR Entry 1 Present on Depart Oxygen Via Stretcher Post-op Destination PACU II Skin DFO Condition Dry Description Condition Intact Description Report Given To Abby Hill RN Airway Maintenance Patient Status Stable Oxygen in Use? Yes Airway Device Simple mask Flow Rate 5 L Last Modified By: Dana Lopez RN 12/28/16 14:34:15 [facility] MAGR Postoperative Recordon 12-28-2016 MAGR Postoperative Record MAGR Phase II Record Summary Primary Physician: Aurelio Wheeler DO Finalized Date/Time: 12/28/16 15:59:05 Pt. Name: ELAINEDANYELLE/Sex: 1940 FEMALE Med Rec #: [id number] Physician: Aurelio Wheeler DO Financial #: [id number] Pt. Type: D Room/Bed: / Admit/Disch: 12/28/16 10:07:27 - Institution: Phase II Case Times MAGR Pre-Care Text: Patient is free from s/s of injury. Patient remains free from compromised physical state related to surgery or anesthesia. Patient comfort maintained. Patient/family verbalize understanding of discharge instructions. Entry 1 In PACU II 12/28/16 14:23:00 Discharge from PACU 12/28/16 15:48:00 II Last Modified By: Abby Hill RN 12/28/16 15:47:46 Post-Care Text: The patient remains free from s/s of injury. Patient's vital signs stable, circulation maintained, return to preop mental and physical status, opsite/dressing intact, minimal or absent nausea and vomiting, tolerates po intake. Patient verbalizes adequate pain control. Patient/family express understanding of discharge instructions. General Comments: 1423 - arrives per cart from OR accompanied by Dr. Jones and Alex Lopez RN, report received, patient awake and conversing 1548 - discharged per wheelchair to private auto driven by for home Finalized By: Abby Hill RN Document Signatures Signed By: Abby Hill RN 12/28/16 15:59 [facility] 12-28-2016 MAGR Preoperative Record MAGR Pre-Op Record Summary Primary Physician: Aurelio Wheeler DO Finalized Date/Time: 12/28/16 13:54:44 Pt. Name: DANYELLE HENRY /Sex: 1940 FEMALE Med Rec #: [id number] Physician: Aurelio Wheeler DO Financial #: [id number] Pt. Type: D Room/Bed: / Admit/Disch: 12/28/16 10:07:27 - Institution: Pre-Op Case Times [facility] Pre-Care Text: Patient will be optimally prepared for surgery. Patient is free from s/s of injury. Provide information to patient/family related to plan of care. Verify patient allergies. Confirm identity and verify consent before the operative or invasive procedure. Entry 1 Patient Arrival Time 12/28/16 10:20:00 Preop Departure 12/28/16 13:54:00 Last Modified By: Anastasiya Trujillo RN 12/28/16 13:54:40 Post-Care Text: Patient is prepared mentally and physically and is ready for surgery. The patient remains free from s/s of injury. Patient/family express understanding of plan of care and participate in decisions affecting his or her perioperrative plan of care. Allergies documented appropriately. Patient identifiers and consent correct. General Comments: Patient arrives ambulaotry to room 207-1. Oriented to room/facility. No complaints of any chest pain, shortness of breath or illnessess. Denies pacemaker/defib. Zaheer sleep apnea. Finalized By: Anastasiya Trujillo RN Document Signatures Signed By: Anastasiya Trujillo RN 12/28/16 13:54 [facility] Operative Report - Surgeon/P negro 12-28-2016 Operative Report - Surgeon/Physician Procedure: Decompression of median nerve right wrist with release of carpal canalPre Op Diagnosis: Carpal tunnel syndrome rightPost Op Dianosis: Carpal tunnel syndrome rightSurgeon: Dr. Annabella Wheeler, DOAnesthesia: Local with conscious sedationIndication for Surgery: The patient had symptoms of carpal tunnel syndrome. There was evidence of progression. We discussed surgical and nonsurgical alternatives and the risks and benefits of each and the chances for success / failure. I recommended to proceed with surgery and the patient requested the same.Findings: The median nerve was noted to be present and intact within the carpal canal. The carpal canal/tunnel was stenoticBlood Loss: ScantSpecimen: NoneProcedure Summary: After administration of anesthesia the right upper extremity was sterilely prepped and draped in usual fashion. A timeout was taken in the operating room. A longitudinal incision was made over the carpal tunnel dissection was carried down beyond the palmaris longus and down to the transverse carpal ligament. Transverse carpal ligament was incised with a 15 blade and then released proximally and distally with a pair of [place] scissors. I made sure that the nerve was completely decompressed as it exited the distal volar forearm fascia and traveled through the carpal tunnel and into the hand. The wound was irrigated with copious amounts sterile saline and the skin was closed with nylon suture. Adaptic sterile dressings and an Aleja bandage were applied with the thumb in appositionComplications: None[Electronically Signed on: 12/28/2016 14:25 EDT] Aurelio Wheeler DO[Verified on: 12/28/2016 14:25 EDT] Aurelio Wheeler DO [facility] Progress Note - Nurseon 12-05 Progress Note - Nurse Preop call complet ed, patient arriving at 1115 on 12/28/16 and preop instructions reviewed[Electronically Signed on: 12/25/2016 09:56 EDT] Abby Hill RN[Verified on: 12/25/2016 09:56 EDT] Abby Hill RN [facility] .Auto Diff 1on 12-24-2016 Auto Baso % 0.5 % Normal 0.2-2.0 [facility] Comment on above: Performed By: #### 7 [id number], [id number], [id number] ####[facility] (DEFAULT)[address] [place] [address] Auto [place] % 6 % Normal 1-12 [facility] Comment on above: Performed By: #### 7 [id number], [id number], [id number] ####[facility] (DEFAULT)[address] [place] [address] Auto Neut % 64 % Normal 44-88 [facility] Comment on above: Performed By: #### 7 [id number], [id number], [id number] ####[facility] (DEFAULT)[address] [place] [address] Baso Abs# 0.0 x10 Normal 0.0-0.2 [facility] Comment on above: Performed By: #### 7 [id number], [id number], [id number] ####[facility] (DEFAULT)[address] [place] [address] Eos Abs# 0.1 x10 Normal 0.0-0.4 [facility] Comment on above: Performed By: #### 7 [id number], [id number], [id number] ####[facility] (DEFAULT)[address] [place] [address] Eosinophils/100 leukocytes 0.9 % Normal 0.9-4.0 [facility] Comment on above: Performed By: #### 7 [id number], [id number], [id number] ####[facility] (DEFAULT)[address] [place] [address] Lymphocytes 2.1 x10 Normal 1.3-2.9 [facility] Comment on above: Performed By: #### 7 [id number], [id number], [id number] ####[facility] (DEFAULT)[address] [place] [address] Lymphocytes/100 leukocytes 28 % Normal 14-48 [facility] Comment on above: Performed By: #### 7 [id number], [id number], [id number] ####[facility] (DEFAULT)[address] [place] [address] [place] Abs# 0.5 x10 Normal 0.0-0.8 [facility] Comment on above: Performed By: #### 7 [id number], [id number], [id number] ####[facility] (DEFAULT)[address] [place] [address] Neut Abs# 4.8 x10 Normal 1.5-9.2 [facility] Comment on above: Performed By: #### 7 [id number], [id number], [id number] ####[facility] (DEFAULT)[address] [place] [address] Standardon 12-24-2016 eGFR (non-black) 31 mL/min/{1.73_m2} Invalid Interpretation Code [facility] Comment on above: Performed By: #### 7 [id number], [id number], [id number] ####[facility] (DEFAULT)[address] [place] [address] eGFR (non-black) 38 mL/min/{1.73_m2} Invalid Interpretation Code [facility] Comment on above: Result Comment: [employer] nathaly Kidney disease could be indicated at eGFRs of less than 60 ml/min/1.73m2. Kidney Failure is indicated at less than 15 ml/min/1.73m2 Performed By: #### 7 [id number], [id number], [id number] ####[facility] (DEFAULT)[address] [place] [address] Anion gap 11.0 mmol/L Normal 5.0-19.0 [facility] Comment on above: Performed By: #### 7 516709, [id number], [id number] ####[facility] (DEFAULT)[address] [place] [address] BUN/Creatinine Ratio 14.0 mg/mg Normal 4.6-16.2 [facility] Comment on above: Performed By: #### 7 [id number], [id number], [id number] ####[facility] (DEFAULT)[address] [place] [address] Calcium 9.4 mg/dL Normal 8.9-10.3 [facility] Comment on above: Performed By: #### 7 811486, [id number], [id number] ####[facility] (DEFAULT)[address] [place] [address] Chloride 108 mmol/L Normal 101-111 [facility] Comment on above: Performed By: #### 7 [id number], [id number], [id number] ####[facility] (DEFAULT)[address] [place] [address] CO2 22 mmol/L Normal 21-32 [facility] Comment on above: Performed By: #### 7 834781, [id number], [id number] ####[facility] (DEFAULT)[address] [place] [address] Creatinine 1.60 mg/dL High 0.60-1.30 [facility] Comment on above: Performed By: #### 7 590346, [id number], [id number] ####[facility] (DEFAULT)[address] [place] [address] Glucose mass conc 91.0 mg/dL Normal 74.0-118.0 [facility] Comment on above: Performed By: #### 7 [id number], [id number], [id number] ####[facility] (DEFAULT)[address] [place] [address] Osmolality 277 mOsm/L Invalid Interpretation Code [facility] Comment on above: Performed By: #### 7 [id number], [id number], [id number] ####[facility] (DEFAULT)[address] [place] [address] Potassium molar conc 4.2 mmol/L Normal 3.6-5.1 [facility] Comment on above: Performed By: #### 7 041245, [id number], [id number] ####[facility] (DEFAULT)[address] [place] [address] Sodium 137.0 mmol/L Normal 136.0-144. 0 [facility] Comment on above: Performed By: #### 7 555932, [id number], [id number] ####[facility] (DEFAULT)[address] [place] [address] Urea nitrogen 23 mg/dL Normal 8-26 [facility] Comment on above: Performed By: #### 7 433125, [id number], [id number] ####[facility] (DEFAULT)[address] [place] [address] CBC w/ Auto Diffon 7 Erythrocyte distribution width Auto Ratio (RBC) 13.3 % Normal 11.5-15.0 [facility] Comment on above: Performed By: #### 7 356644, [id number], [id number] ####[facility] (DEFAULT)[address] [place] [address] Erythrocytes (RBC) 4.15 x10 Normal 3.70-5.30 [facility] Comment on above: Performed By: #### 7 711853, [id number], [id number] ####[facility] (DEFAULT)[address] [place] [address] Hematocrit (HCT) 38.5 % Normal 33.7-40.4 [facility] Comment on above: Performed By: #### 7 752995, [id number], [id number] ####[facility] (DEFAULT)[address] [place] [address] Hemoglobin mass conc (Bld) 12.9 g/dL Normal 11.3-15.9 [facility] Comment on above: Performed By: #### 7 344311, [id number], [id number] ####[facility] (DEFAULT)[address] [place] [address] Man Diff? Auto Normal [facility] Comment on above: Result Comment: Auto Performed By: #### 7 [id number], [id number], [id number] ####[facility] (DEFAULT)[address] [place] [address] MCH 31 pg Normal 24-34 [facility] Comment on above: Performed By: #### 7 311304, [id number], [id number] ####[facility] (DEFAULT)[address] [place] [address] MCHC mass conc (RBC) 34 g/dL Normal 26-37 [facility] Comment on above: Performed By: #### 7 [id number], [id number], [id number] ####[facility] (DEFAULT)[address] [place] [address] MCV 93 fL Normal 81-100 [facility] Comment on above: Performed By: #### 7 105744, [id number], [id number] ####[facility] (DEFAULT)[address] [place] [address] Platelet mean volume (PMV) 10.2 fL Normal 6.3-10.2 [facility] Comment on above: Performed By: #### 7 338704, [id number], [id number] ####[facility] (DEFAULT)[address] [place] [address] Platelets 375 x10 Normal 138-427 [facility] Comment on above: Performed By: #### 7 294711, [id number], [id number] ####[facility] (DEFAULT)[address] [place] [address] WBC (Leukocytes) 7.4 x10 Normal 3.5-10.5 [facility] Comment on above: Performed By: #### 7 [id number], [id number], [id number] ####[facility] (DEFAULT)[address] [place] [address] Progress Note - Nurseon 09- Progress Note - Nurse Reviewed PAT infor mation, labs, ECG results with Dr. Medina, Office notes from Dr. Reyes given to Dr. Medina for his review. No orders given.[Electronically Signed on: 12/24/2016 12:27 EDT] Anastasiya Trujillo RN[Verified on: 12/24/2016 12:27 EDT] Anastasiya Turjillo RN [facility] Vital Signs Date Time Vital Sign Value Performing Clinician Facility 02-16-2023 09:45-0500 Body height 154.94 cm Ken Haas Other [facility] Other 02-16-2023 09:45-0500 Body temperature 98.5 [degF] Ken Buehrer Other [facility] Other 02-16-2023 09:45-0500 Diastolic blood pressure 60 mm[Hg] Ken Buehrer Other [facility] Other 02-16-2023 09:45-0500 SaO2% (BldA) [Mass fraction] 95 % Ken Buehrer Other [facility] Other 02-16-2023 09:45-0500 Systolic blood pressure 100 mm[Hg] Ken Buehrer Other [facility] Other 01-19-2023 11:15-0400 Body height 154.94 cm Ken Buehrer Other [facility] Other 01-19-2023 11:15-0400 Body mass index (BMI) [Ratio] 20.78 kg/m2 Ken Preciadoehrer Other [facility] Other 01-19-2023 11:15-0400 Body temperature 96.8 [degF] Ken Cumminsrer Other [facility] Other 01-19-2023 11:15-0400 Body weight 49.9 kg Ken Cumminsrer Other [facility] Other 01-19-2023 11:15-0400 Diastolic blood pressure 64 mm[Hg] Ken Cumminsrer Other [facility] Other 01-19-2023 11:15-0400 Respiratory rate 18 /min Ken Ozzyangierer Other [facility] Other 01-19-2023 11:15-0400 SaO2% (BldA) [Mass fraction] 98 % Ken Cumminsrer Other [facility] Other 01-19-2023 11:15-0400 Systolic blood pressure 118 mm[Hg] Ken Buehrer Other [facility] Other 12-22-2022 11:15-0400 Body height 154.94 cm Ken Buehrer Other [facility] Other 12-22-2022 11:15-0400 Body mass index (BMI) [Ratio] 19.65 kg/m2 Ken Preciadoehrer Other [facility] Other 12-22-2022 11:15-0400 Body weight 47.17 kg Ken Haas Other [facility] Other 12-22-2022 11:15-0400 Diastolic blood pressure 60 mm[Hg] Ken Moreirar Other [facility] Other 12-22-2022 11:15-0400 SaO2% (BldA) [Mass fraction] 93 % Ken Haas Other [employer] [facility] Other 12-22-2022 11:15-0400 Systolic blood pressure 120 mm[Hg] Ken Cumminsrer Other [employer] [facility] Other 11-26-2022 16:15-0400 Diastolic blood pressure 58 mm[Hg] MD Felipe Reyes Work Phone: [facility] 11-26-2022 16:15-0400 Heart rate 61 /min MD Felipe Reyes Work Phone: [facility] 11-26-2022 16:15-0400 Respiratory rate 16 /min MD Felipe Reyes Work Phone: [facility] 11-26-2022 16:15-0400 SaO2% (BldA) [Mass fraction] 97 % MD Felipe Reyes Work Phone: [facility] 11-26-2022 16:15-0400 Systolic blood pressure 117 mm[Hg] MD Felipe Reyes Work Phone: [facility] 11-26-2022 14:59-0400 Inhaled oxygen flow rate 6 L/min MD Felipe Reyes Work Phone: [facility] 11-26-2022 12:16-0400 Body height 154.94 cm MD Felipe Reyes Work Phone: [facility] 11-26-2022 12:16-0400 Body mass index (BMI) [Ratio] 19.6 kg/m2 MD Felipe Reyes Work Phone: [facility] 11-26-2022 12:16-0400 Body weight 47.17 kg MD Felipe Reyes Work Phone: [facility] 11-26-2022 10:36-0400 Body temperature 98 [degF] MD Felipe Reyes Work Phone: [facility] 11-03-2022 10:30-0400 Body height 154.94 cm Roxanne Yaa Other [facility] Other 11-03-2022 10:30-0400 Body mass index (BMI) [Ratio] 20.03 kg/m2 Roxanne Cortésdennys Other [facility] Other 11-03-2022 10:30-0400 Body weight 48.08 kg Roxanne Cortésdennys Other [facility] Other 11-03-2022 10:30-0400 Diastolic blood pressure Roxanne Cortésdennys Other [facility] Other 11-03-2022 10:30-0400 SaO2% (BldA) [Mass fraction] 97 % Roxanne Cortésdennys Other [facility] Other 11-03-2022 10:30-0400 Systolic blood pressure 110 mm[Hg] Roxanne Yaa Other [facility] Other 09-22-2022 10:45-0400 Body height 154.94 cm Ken Haas Other [facility] Other 09-22-2022 10:45-0400 Body mass index (BMI) [Ratio] 21.16 kg/m2 Ken Haas Other [facility] Other 09-22-2022 10:45-0400 Body temperature 97.3 [degF] Ken Cumminsrer Other [facility] Other 09-22-2022 10:45-0400 Body weight 50.8 kg Ken Cumminsrer Other [facility] Other 09-22-2022 10:45-0400 Diastolic blood pressure 68 mm[Hg] Ken Cumminsrer Other [facility] Other 09-22-2022 10:45-0400 SaO2% (BldA) [Mass fraction] 97 % Ken Cumminsrer Other [facility] Other 09-22-2022 10:45-0400 Systolic blood pressure 138 mm[Hg] Ken Cumminsrer Other [facility] Other 09-03-2022 09:48-0400 Diastolic blood pressure 68 mm[Hg] MD Felipe Reyes Work Phone: [facility] 09-03-2022 09:48-0400 Heart rate 75 /min MD Felipe Reyes Work Phone: [facility] 09-03-2022 09:48-0400 Respiratory rate 16 /min MD Felipe Reyes Work Phone: [facility] 09-03-2022 09:48-0400 SaO2% (BldA) [Mass fraction] 98 % MD Felipe Reyes Work Phone: [facility] 09-03-2022 09:48-0400 Systolic blood pressure 134 mm[Hg] MD Felipe Reyes Work Phone: [facility] 09-03-2022 07:54-0400 Body mass index (BMI) [Ratio] 21.9 kg/m2 MD Felipe Reyes Work Phone: [facility] 09-03-2022 07:25-0400 Body height 152.4 cm MD Felipe Reyes Work Phone: [facility] 09-03-2022 07:25-0400 Body weight 50.8 kg MD Felipe Reyes Work Phone: [facility] 09-03-2022 06:25-0400 Body temperature 98.1 [degF] MD Felipe Reyes Work Phone: [facility] 08-04-2022 10:30-0400 Body height 154.94 cm Ken Haas Other [facility] Other 08-04-2022 10:30-0400 Body mass index (BMI) [Ratio] 21.16 kg/m2 Kne Haas Other [facility] Other 08-04-2022 10:30-0400 Body temperature 97.3 [degF] Ken Cumminsrer Other [facility] Other 08-04-2022 10:30-0400 Body weight 50.8 kg Ken Cumminsrer Other [facility] Other 08-04-2022 10:30-0400 Diastolic blood pressure 68 mm[Hg] Ken Cumminsrer Other [facility] Other 08-04-2022 10:30-0400 SaO2% (BldA) [Mass fraction] 98 % Ken Preciadoehrer Other [facility] Other 08-04-2022 10:30-0400 Systolic blood pressure 116 mm[Hg] Ken Preciadoehrer Other [facility] Other 07-27-2022 14:12-0400 Body height 154.94 cm MD Felipe Reyes Work Phone: [facility] 07-27-2022 14:00-0400 Body temperature 97.8 [degF] MD Felipe Reyes Work Phone: [facility] 07-27-2022 14:00-0400 Diastolic blood pressure 60 mm[Hg] MD Felipe Reyes Work Phone: [facility] 07-27-2022 14:00-0400 Heart rate 68 /min MD Felipe Reyes Work Phone: [facility] 07-27-2022 14:00-0400 Respiratory rate 14 /min MD Felipe Reyes Work Phone: [facility] 07-27-2022 14:00-0400 SaO2% (BldA) [Mass fraction] 98 % MD Felipe Reyes Work Phone: [facility] 07-27-2022 14:00-0400 Systolic blood pressure 133 mm[Hg] MD Felipe Reyes Work Phone: [facility] 07-27-2022 05:20-0400 Body weight 55.4 kg MD Felipe Reyes Work Phone: [facility] 07-24-2022 16:44-0400 Diastolic blood pressure 70 mm[Hg] MD Felipe Reyes Work Phone: [facility] 07-24-2022 16:44-0400 Heart rate 75 /min MD Felipe Reyes Work Phone: [facility] 07-24-2022 16:44-0400 Respiratory rate 18 /min MD Felipe Reyes Work Phone: [facility] 07-24-2022 16:44-0400 SaO2% (BldA) [Mass fraction] 98 % MD Felipe Reyes Work Phone: [facility] 07-24-2022 16:44-0400 Systolic blood pressure 158 mm[Hg] MD Felipe Reyes Work Phone: [facility] 07-24-2022 13:25-0400 Body height 154.94 cm MD Felipe Reyes Work Phone: [facility] 07-24-2022 13:25-0400 Body weight 47.17 kg MD Felipe Reyes Work Phone: [facility] 07-24-2022 13:24-0400 Body temperature 97.6 [degF] MD Felipe Reyes Work Phone: [facility] 04-22-2022 09:27-0500 Diastolic blood pressure 72 mm[Hg] MD Felipe Reyes Work Phone: [facility] 04-22-2022 09:27-0500 Heart rate 72 /min MD Felipe Reyes Work Phone: [facility] 04-22-2022 09:27-0500 Respiratory rate 16 /min MD Felipe Reyes Work Phone: [facility] 04-22-2022 09:27-0500 SaO2% (BldA) [Mass fraction] 100 % MD Felipe Reyes Work Phone: [facility] 04-22-2022 09:27-0500 Systolic blood pressure 150 mm[Hg] MD Felipe Reyes Work Phone: [facility] 04-22-2022 08:42-0500 Inhaled oxygen flow rate 5 L/min MD Felipe Reyes Work Phone: [facility] 04-22-2022 07:49-0500 Body height 152.4 cm MD Felipe Reyes Work Phone: [facility] 04-22-2022 07:49-0500 Body mass index (BMI) [Ratio] 21.9 kg/m2 MD Felipe Reyes Work Phone: [facility] 04-22-2022 07:49-0500 Body weight 50.8 kg MD Felipe Reyes Work Phone: [facility] 04-22-2022 07:05-0500 Body temperature 97.9 [degF] MD Felipe Reyes Work Phone: [facility] 04-07-2022 10:15-0500 Body height 154.94 cm Ken Cumminsrer Other [employer] Other 04-07-2022 10:15-0500 Body mass index (BMI) [Ratio] 21.16 kg/m2 Ken Buehrer Other [employer] Other 04-07-2022 10:15-0500 Body temperature 97.8 [degF] Ken Buehrer Other [employer] Other 04-07-2022 10:15-0500 Body weight 50.8 kg Ken Cumminsrer Other [employer] Other 04-07-2022 10:15-0500 Diastolic blood pressure 64 mm[Hg] Ken Preciadoehrer Other [employer] Other 04-07-2022 10:15-0500 SaO2% (BldA) [Mass fraction] 98 % Ken Preciadoehrer Other [employer] Other 04-07-2022 10:15-0500 Systolic blood pressure 116 mm[Hg] Ken Buehrer Other [employer] Other 04-06-2022 13:00-0500 Diastolic blood pressure 71 mm[Hg] Delfino Chan [facility] 04-06-2022 13:00-0500 Heart rate 93 /min Delfino Rocio [facility] 04-06-2022 13:00-0500 Mean blood pressure 91 mm[Hg] Delfino Chan [facility] 04-06-2022 13:00-0500 Respiratory rate 18 /min Delfino Chan [facility] 04-06-2022 13:00-0500 Systolic blood pressure 131 mm[Hg] Delfino Chan [facility] 04-06-2022 12:04-0500 Body temperature 97.7 [degF] Delfino Chan [facility] 04-06-2022 12:04-0500 Diastolic blood pressure 94 mm[Hg] Delfino Chan [facility] 04-06-2022 12:04-0500 Heart rate 96 /min Delfino Chan [facility] 04-06-2022 12:04-0500 Respiratory rate 20 /min Delfino Chan [facility] 04-06-2022 12:04-0500 SaO2% (BldA) [Mass fraction] 99 % Delfino Chan [facility] 04-06-2022 12:04-0500 Systolic blood pressure 130 mm[Hg] Delfino Chan [facility] 03-20-2022 16:00-0500 Body temperature 98.6 [degF] MD Felipe Reyes Work Phone: [facility] 03-20-2022 16:00-0500 Diastolic blood pressure 60 mm[Hg] MD Felipe Reyes Work Phone: [facility] 03-20-2022 16:00-0500 Heart rate 77 /min MD Felipe Reyes Work Phone: [facility] 03-20-2022 16:00-0500 Respiratory rate 16 /min MD Felipe Reyes Work Phone: [facility] 03-20-2022 16:00-0500 SaO2% (BldA) [Mass fraction] 97 % MD Felipe Reyes Work Phone: [facility] 03-20-2022 16:00-0500 Systolic blood pressure 110 mm[Hg] MD Felipe Reyes Work Phone: [facility] 03-19-2022 23:40-0500 Body weight 54.6 kg MD Felipe Reyes Work Phone: [facility] 03-19-2022 14:05-0500 Inhaled oxygen flow rate 10 L/min MD Felipe Reyes Work Phone: [facility] 03-19-2022 12:57-0500 Body height 154.94 cm MD Felipe Reyes Work Phone: [facility] 03-19-2022 12:57-0500 Body mass index (BMI) [Ratio] 21.7 kg/m2 MD Felpie Reyes Work Phone: [facility] 02-23-2022 11:00-0500 Body height 154.94 cm Roxanne Mon Other [employer] [facility] [employer] Other 02-23-2022 11:00-0500 Body mass index (BMI) [Ratio] 24.75 kg/m2 Roxanne Mon Other [employer] Other 02-23-2022 11:00-0500 Body temperature 97.5 [degF] Roxanne Mon Other [employer] Other 02-23-2022 11:00-0500 Body weight 59.42 kg Roxanne Mon Other [employer] Other 02-23-2022 11:00-0500 Diastolic blood pressure 78 mm[Hg] Roxanne Mon Other [employer] Other 02-23-2022 11:00-0500 SaO2% (BldA) [Mass fraction] 97 % Roxanne Mon Other [employer] Other 02-23-2022 11:00-0500 Systolic blood pressure 132 mm[Hg] Roxanne Mon Other [employer] Other 01-09-2022 20:41-0400 Heart rate 82 /min MD Felipe Reyes Work Phone: [facility] 01-09-2022 18:41-0400 Body height 154.94 cm MD Felipe Reyes Work Phone: [facility] 01-09-2022 18:41-0400 Body temperature 98 [degF] MD Felipe Reyes Work Phone: [facility] 01-09-2022 18:41-0400 Body weight 54.45 kg MD Felipe Reyes Work Phone: [facility] 01-09-2022 18:41-0400 Diastolic blood pressure 68 mm[Hg] MD Felipe Reyes Work Phone: [facility] 01-09-2022 18:41-0400 Respiratory rate 20 /min MD Felipe Reyes Work Phone: [facility] 01-09-2022 18:41-0400 SaO2% (BldA) [Mass fraction] 97 % MD Felipe Reyes Work Phone: [facility] 01-09-2022 18:41-0400 Systolic blood pressure 146 mm[Hg] MD Felipe Reyes Work Phone: [facility] Encounters Encounter Date Encounter Type Care Provider Facility Start: 02-16-2023 End: 02-16-2023 ambulatory Ken Haas Other [employer] [facility] [employer] Other Start: 02-16-2023 Office outpatient visit 25 minutes Ken Buehrer [facility] Start: 01-19-2023 End: 01-19-2023 ambulatory Ken Buangierer Other [employer] Other Start: 01-19-2023 Postop follow up visit related to original px Ken Buehrer [facility] Start: 12-22-2022 End: 12-22-2022 ambulatory Ken Buangierer Other [employer] Other Start: 12-22-2022 Postop follow up visit related to original px Ken Buehrer [facility] Start: 11-26-2022 End: 11-26-2022 ambulatory Felipe Reyes Facility:[facility] Start: 11-26-2022 End: 11-26-2022 Admission to same day surgery center MD Felipe Reyes Work Phone: [facility] [place] Start: 11-26-2022 End: 11-26-2022 ambulatory MD Felipe Reyes Work Phone: [facility] Work Phone: Start: 11-03-2022 End: 11-03-2022 Patient encounter procedure Roxanne Mon [facility] Start: 11-03-2022 End: 11-03-2022 ambulatory MD Felipe Reyes Work Phone: [facility] Work Phone: Start: 09-22-2022 End: 09-22-2022 ambulatory Ken Cumminsrer Other [employer] Other Start: 09-22-2022 Postop follow up visit related to original px Ken Buehrer [facility] Start: 09-03-2022 End: 09-03-2022 ambulatory Ken Buangierer Facility:[facility] Start: 09-03-2022 End: 09-03-2022 Admission to same day surgery center MD Felipe Reyes Work Phone: [facility] [place] Start: 09-03-2022 End: 09-03-2022 ambulatory MD Felipe Reyes Work Phone: [facility] Work Phone: Start: 08-07-2022 End: 08-07-[address] FELIPE REYES Facility:[facility] Start: 08-05-2022 End: 08-05-2022 ambulatory Imad Asaad Other [facility] [employer] Other Start: 08-05-2022 Telephone encounter Imad Asaad [facility] Start: 08-04-2022 Office outpatient visit 25 minutes Ken Haas [facility] Start: 08-04-2022 End: 08-04-2022 ambulatory MD Felipe Reyes Work Phone: [facility] [employer] Other Start: 08-04-2022 End: 08-04-2022 Patient encounter procedure MD Felipe Reyes Work Phone: [facility] Start: 07-31-2022 End: 07-31-[address] DOCTOR HURLEY Facility:[facility] Start: 07-26-2022 End: 07-27-2022 Evaluation and management of inpatient Aj Ragland Facility:[facility] Start: 07-26-2022 End: 07-27-2022 Evaluation and management of inpatient MD Felipe Reyes Work Phone: [facility] Work Phone: Start: 07-24-2022 Evaluation and management of inpatient MD Felipe Reyes Work Phone: [facility] Work Phone: Start: 07-24-2022 observation encounter MD Mena Reyes Work Phone: [facility] Work Phone: Start: 07-24-2022 End: 07-24-[address] DOCTOR HURLEY Facility:[facility] Start: 06-21-2022 End: 06-22-2022 ambulatory KANG NAVI Facility:[facility] Start: 04-22-2022 End: 04-22-2022 ambulatory Ken Haas Facility:[facility] Start: 04-22-2022 End: 04-22-2022 Admission to same day surgery center MD [facility] [place] Start: 04-22-2022 End: 04-22-2022 ambulatory MD Felipe Reyes Work Phone: [facility] Work Phone: Start: 04-07-2022 End: 04-07-2022 ambulatory Ken Haas Other [employer] Other Start: 04-07-2022 Postop follow up visit related to original px Ken Haas [facility] Start: 04-06-2022 End: 04-06-2022 Emergency department patient visit Delfino Chan Facility:[facility] Start: 04-06-2022 End: 04-06-2022 Emergency department patient visit Delfino Chan [facility] Start: 03-23-2022 End: 03-23-2022 ambulatory Ken Haas Other [employer] Other Start: 03-23-2022 Telephone encounter Ken Haas [facility] Start: 03-19-2022 End: 03-20-2022 ambulatory Ken Maria Gbenjynate Facility:[facility] Start: 03-19-2022 End: 03-20-2022 Admission to same day surgery center MD Felipe Reyes Work Phone: [facility] [place] Start: 03-19-2022 End: 03-20-2022 ambulatory MD Felipe Reyes Work Phone: [facility] Work Phone: Start: 03-05-2022 End: 03-05-2022 ambulatory Ken Haas Facility:[facility] Start: 03-05-2022 End: 03-05-2022 ambulatory MD Felipe Reyes Work Phone: [facility] Work Phone: Start: 03-05-2022 End: 03-05-2022 Patient encounter procedure MD Felipe Reyes Work Phone: [facility] Start: 02-25-2022 End: 02-25-[address] YARA SWIFT Facility:[facility] Start: 02-23-2022 End: 02-23-2022 ambulatory Roxanne Cortésdennys Other [facility] [employer] Other Start: 02-23-2022 Patient encounter procedure Roxanne Mon [facility] Start: 02-17-2022 End: 02-17-2022 ambulatory Ken Haas Facility:[facility] Start: 02-17-2022 End: 02-17-2022 ambulatory MD Felipe Reyes Work Phone: [facility] Work Phone: Start: 02-17-2022 End: 02-17-2022 Patient encounter procedure MD Felipe Reyes Work Phone: [facility] Start: 01-19-2022 End: 01-19-[address] DOCTOR HURLEY Facility:[facility] Start: 01-09-2022 End: 01-09-2022 Emergency department patient visit Delgado Eagle Facility:[facility] Start: 01-09-2022 End: 01-09-2022 Emergency department patient visit MD Felipe Reyes Work Phone: [facility] Start: 12-28-2016 End: 12-28-2016 Ambulatory Aurelio Wheeler Facility:[facility] Start: 12-25-2016 End: 12-30-2016 [facility] Facility:[facility] Procedures Date Procedure Procedure Detail Performing Clinician Start: 11-26-2022 Arteriovenous fistulization MD Felipe Reyes Work Phone: Start: 11-03-2022 Ultrasonography of arteriovenous fistula MD Felipe Reyes Work Phone: Start: 09-03-2022 Arteriovenous fistulization MD Felipe Reyes Work Phone: Start: 08-04-2022 US angiography MD Mena Reyes Work Phone: Start: 07-24-2022 Antibody screen Ken Samina Comment on above: Order Comment: Unacc eptable specimen due to hemolysis. Redraw reordered. Transfuse now? Y Number of units to transfuse now? 1 Result Comment: PERF ORMED BY: [facility] [address] [place] [address] PATHOLOGIST DO ALL OPERATOR XAVIER PINEDA M.D. Start: 07-24-2022 Plain chest X-ray MD Barry Reyes Work Phone: Start: 07-24-2022 Screening for occult blood in feces MD Felipe Reyes Work Phone: Start: 04-22-2022 Fluoroscopic guidance Indira Reyes Work Phone: Start: 04-22-2022 Plain chest X-ray MD Barry Reyes Work Phone: Start: 03-19-2022 Arteriovenous fistulization MD Felipe Reyes Work Phone: Start: 02-17-2022 US angiography MD Mena Reyes Work Phone: Screening for malign ant neoplasm of colon Roxanne Mon Other Plan of Treatment Date Care Activity Detail Author Start: 11-26-2022 [facility] Start: 11-26-2022 [facility] Start: 09-03-2022 End: 09-03-2022 [facility] Start: 07-27-2022 [facility] Start: 07-26-2022 Excision of Cecum, Via Natural or Artificial Opening Endoscopic Excision of Cecum, Via Natural or Artificial Opening Endoscopic [facility] Start: 07-26-2022 Performance of Urinary Filtration, Intermittent, Less than 6 Hours Per Day Performance of Urinary Filtration, Intermittent, Less than 6 Hours Per Day [facility] Start: 07-25-2022 Blood chemistry [facility] Start: 07-25-2022 [facility] Start: 07-24-2022 Hospital admission [facility] Start: 07-24-2022 Referral to agronomy location manager [facility] Start: 07-24-2022 Referral to garage laborer [facility] Start: 07-24-2022 [facility] Start: 07-24-2022 [facility] Start: 04-22-2022 End: 04-22-2022 [facility] Start: 03-20-2022 [facility] Start: 03-19-2022 Hospital admission [facility] Start: 03-19-2022 Referral to garage laborer [facility] Start: 03-19-2022 [facility] Start: 02-17-2022 US angiography US map hemodial access MILENA [facility] Start: 02-17-2022 US Unspecified body region [facility] Patient Education [facility] Work Phone: Patient referral [facility] Work Phone: Immunizations Immunization Date Immunization Notes Care Provider Fa cilishantelle 11-20-2020 COVID-19 Adrian Flynn (Pf[employer]) MD Felipe Reyes Work Phone: [facility] Payers Date Payer Category Payer Unknown [id number] 2022 Self-pay [id number] 2022 Unknown [id number] 2016 Medicare [id number] 1959 Medicare [id number] 1959 Medicare [id number] 1939 Unknown [id number] 2.16.8 [id number] 1939 Unknown [id number] 2.16.84 [id number] 1939 Unknown [id number] 2.16.84 0.1.396835.3.579.2.593 1939 Unknown [id number] 2.16.84 0.1.734036.3.579.2.593 1939 Unknown [id number] 2.16.84 0.1.000456.3.579.2.593 1939 Unknown [id number] 2.16.84 0.1.110904.3.579.2.593 1939 Unknown [id number] 2.16.84 0.1.517389.3.579.2.593 Unknown [id number] 2.16.8 40.1.542554.3.579.2.531 Unknown [id number] 2.16.8 40.1.514834.3.579.2.531 Unknown [id number] 2.16.8 40.1.796442.3.579.2.531 Unknown [id number] 2.16.8 40.1.934956.3.579.2.531 Unknown [id number] 2.16.8 40.1.240135.3.579.2.531 Unknown [id number] 2.16.8 40.1.756878.3.579.2.531 Unknown [id number] 2.16.8 40.1.261145.3.579.2.531 Unknown [id number] 2.16.8 40.1.983728.3.579.2.531 Unknown [id number] 2.16.8 40.1.650467.3.579.2.531 Unknown [id number] 2.16.8 40.1.933035.3.579.2.531 Social History Date Type Detail Facility Start: 01-09-2022 End: 11-26-2022 Tobacco smoking status NHIS Never smoked tobacco (finding) [facility] Start: 1940 Sex Assigned At Female F [facility] Tobacco smoking status No Smokin g Status Entered [facility] Sex Assigned At Female [facility] Start: 04-22-2022 Tobacco smoking stat us RIIS Ex-smoker (finding) [facility] Medical Equipment Procedure Code Equipment Code Equipment Origin al Text Equipment Identifier Dates Fluoroscopic guidance for insertion of tunnelled dialysis catheter Double-lumen haemodialysis catheter, implantable +[id number] FDA Start: 04-22-2022 Creation or revision of arteriovenous fistula Synthetic vascular graft [id number] FDA Start: 03-19-2022 Goals Date Patient Goal Desired Activity /State Functional Status Date Assessment Result Facility 07-27-2022 Functional status Patient at Baseline [facility] Work Phone: 07-24-2022 Functional status Patient at Baseline [facility] Work Phone: 04-06-2022 Functional Status N/A [facility] 03-20-2022 Functional status Patient at Baseline [facility] Work Phone: Mental Status Date Assessment Result Facility 07-27-2022 Cognitive function Cognitive Sta tus Patient at Baseline [facility] Work Phone: 07-24-2022 Cognitive function Cognitive Sta tus Patient at Baseline [facility] Work Phone: 03-20-2022 Cognitive function Cognitive Sta tus Patient at Baseline [facility] Work Phone: Clinical Notes 02-23-2022 to 02-16-2023 Note Date & Type Note Facility 02-16-2023 Evaluation note Encounter Date Diagnosis Assessment Notes Feb, End stage renal disease (ICD-10 - N18.6) 14 Feb, 2023 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 The cuff was then delivered up with blunt dissection and was freed up completely with sharp dissection. The catheter was delivered intact and compression was applied to the site followed by dressing. She was taken from room in good condition. This patient will return to annual follow-up and we will see her back in 1 year for reexamination of her fistula. 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 I suspect that it will go well for her given her physical examination. I will see her back in a month at which time hopefully can remove her catheter. 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 I will bring her back in a few weeks time and we will reexamine her after which hopefully we can begin to use the fistula. 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 It is deep and will need transposition. Procedure, risk, benefits were discussed with the patient at length and all questions were addressed. Consent was obtained. We will get this on the schedule in the near future. For the time being she will continue use of the right tunneled dialysis catheter which is functioning well for her currently. Nov, Dependence on renal dialysis (ICD-10 - Z99.2) [employer] Other 06-20-2023 Evaluation note* Encounter Date Diagnosis Assessment Notes Treatment Notes Treatment Clinical Notes Sep, End stage renal disease (ICD-10 - N18.6) Sep, Dependence on renal dialysis (ICD-10 - Z99.2) Sep, Other End-stage renal disease This fistula is patent but will require transposition if the vein develops adequately. By palpation today I suspect that it will have adequate flow in size. I will bring her back in 6 weeks for repeat ultrasound examination at that time if the vein is adequate we will plan for transposition. [employer] Other 05-02-2023 Evaluation note* Encounter Date Diagnosis Assessment Notes Treatment Notes Treatment Clinical Notes August, End stage renal disease (ICD-10 - N18.6) August, Dependence on renal dialysis (ICD-10 - Z99.2) August, Other End-stage renal disease with need for extremity based access The patient's and son were present for discussion today and we worked through all the options including 1. Continued dialysis catheter access along with its risks and benefits 2. Placement of a right upper arm prosthetic graft along with its risks and benefits 3. Creation of a right arm autologous fistula along with its risk and benefits including the need for additional procedure to transpose the basilic vein should it develop. She is right-handed but does not have good access in her left arm. She is quite fragile and I am hesitant to place a second prosthetic dialysis graft given that she did so poorly with the first although the outflow on her right arm appears better than that of the left. Artery is still quite small at the antecubital level. We will go ahead with creation of a right antecubital fistula and then watch for potential vein development. Family is in agreement with this plan. [employer] Other 01-03-2023 Evaluation note* Encounter Date Diagnosis Assessment Notes Treatment Notes Treatment Clinical Notes Apr, End stage renal disease (ICD-10 - N18.6) Apr, Dependence on renal dialysis (ICD-10 - Z99.2) Apr, Other End-stage renal disease on dialysis This patient had early graft failure due to poor venous anatomy. Her right arm is not much better based on her previous ultrasounds although it has not been operated on. She is a very fragile elderly long term patient. Plan will be to reevaluate her in a few months and will we ultrasound the right arm. If there is reasonable anatomy and she seems to be doing well we may consider additional attempt at prosthetic graft on the right side. [employer] Other 01-02-2023 NoteProcedures PICC Home Care Guide A peripherally inserted central catheter (PICC) is a form of IV access that allows medicines and IVfluids to be quickly distributed throughout the body. The PICC is a long, thin, flexible tube (catheter) that is inserted into a vein in the upper arm. The catheter ends in a large vein in the chest (superior vena cava, or SVC). After the PICC is inserted, a chest X-ray may be done to make sure that it is in the correct place. A PICC may be placed for different reasons, such as: ? To give medicines and liquid nutrition. ? To give IV fluids and blood products. ? If there is trouble placing a peripheral intravenous (PIV) catheter. If taken care of properly, a PICC can remain in place for several months. Having a PICC can also allow a person to go home from the hospital sooner. Medicine and PICC care can be managed at home by afamily member, caregiver, or home health care team. What are the risks? Generally, having a PICC is safe. However, problems may occur, including: ? A blood clot (thrombus) forming in or at the tip of the PICC. ? A blood clot forming in a vein (deep vein thrombosis) or traveling to the lung (pulmonary embolism). ? Inflammation of the vein (phlebitis) in which the PICC is placed. ? Infection. Central line associated blood stream infection (CLABSI) is a serious infection that often requires hospitalization. ? PICC movement (malposition). The PICC tip may move from its original position due to excessive physical activity, forceful coughing, sneezing, or vomiting. ? A break or cut in the PICC. It is important not to use scissors near the PICC. ? Nerve or tendon irritation or injury during PICC insertion. How to take care of your PICC Preventing problems ? You and any caregivers should wash your hands often with soap. Wash hands: ? Before touching the PICC line or the infusion device. ? Before changing a bandage (dressing). ? Flush the PICC as told by your health care provider. Let your health care provider know right away if the PICC is hard to flush or does not flush. Do not use force to flush the PICC. ? Do not use a syringe that is less than 10 mL to flush the PICC. ? Avoid blood pressure checks on the arm in which the PICC is placed. ? Never pull or tug on the PICC. ? Do not take the PICC out yourself. Only a trained clinical professional should remove the PICC. ? Use clean and sterile supplies only. Keep the supplies in a dry place. Do not reuse needles, syringes, or any other supplies. Doing that can lead to infection. ? Keep pets and children away from your PICC line. ? Check the PICC insertion site every day for signs of infection. Check for: ? Leakage. ? Redness, swelling, or pain. ? Fluid or blood. ? Warmth. ? Pus or a bad smell. PICC dressing care ? Keep your PICC bandage (dressing) clean and dry to prevent infection. ? Do not take baths, swim, or use a hot tub until your health care provider approves. Ask your health care provider if you can take showers. You may only be allowed to take sponge baths for bathing. When you are allowed to shower: ? Ask your health care provider to teach you how to wrap the PICC line. ? Cover the PICC line with clear plastic wrap and tape to keep it dry while showering. ? Follow instructions from your health care provider about how to take care of your insertion site and dressing. Make sure you: ? Wash your hands with soap and water before you change your bandage (dressing). If soap and water are not available, use hand medical cash poster. ? Change your dressing as told by your health care provider. ? Leave stitches (sutures), skin glue, or adhesive strips in place. These skin closures may need tostay in place for 2 weeks or longer. If adhesive strip edges start to loosen and curl up, you may trim the loose edges. Do not remove adhesive strips completely unless your health care provider tellsyou to do that. ? Change your PICC dressing if it becomes loose or wet. General instructions ? Carry your PICC identification card or wear a medical alert bracelet at all times. ? Keep the tube clamped at all times, unless it is being used. ? Carry a smooth-edge clamp with you at all times to place on the tube if it breaks. ? Do not use scissors or sharp objects near the tube. ? You may bend your arm and move it freely. If your PICC is near or at the bend of your elbow, avoid activity with repeated motion at the elbow. ? Avoid lifting heavy objects as told by your health care provider. ? Keep all follow-up visits as told by your health care provider. This is important. Disposal of supplies ? Throw away any syringes in a disposal container that is meant for sharp items (sharps container).You can buy a sharps container from a pharmacy, or you can make one by using an empty hard plastic bottle with a cover. ? Place any used dressings or infusion bags into a pl (more content not included)...[facility]01-02-2023 Hospital Discharge instructions Patient Education 04/06/2022 13:21:07 PICC Home Care Guide PICC Home Care Guide A peripherally inserted central catheter (PICC) is a form of IV access that allows medicines and IVfluids to be quickly distributed throughout the body. The PICC is a long, thin, flexible tube (catheter) that is inserted into a vein in the upper arm. The catheter ends in a large vein in the chest (superior vena cava, or SVC). After the PICC is inserted, a chest X-ray may be done to make sure that it is in the correct place. A PICC may be placed for different reasons, such as: To give medicines and liquid nutrition. To give IV fluids and blood products. If there is trouble placing a peripheral intravenous (PIV) catheter. If taken care of properly, a PICC can remain in place for several months. Having a PICC can also allow a person to go home from the hospital sooner. Medicine and PICC care can be managed at home by afamily member, caregiver, or home health care team. What are the risks? Generally, having a PICC is safe. However, problems may occur, including: A blood clot (thrombus) forming in or at the tip of the PICC. A blood clot forming in a vein (deep vein thrombosis) or traveling to the lung (pulmonary embolism). Inflammation of the vein (phlebitis) in which the PICC is placed. Infection. Central line associated blood stream infection (CLABSI) is a serious infection that often requires hospitalization. PICC movement (malposition). The PICC tip may move from its original position due to excessive physical activity, forceful coughing, sneezing, or vomiting. A break or cut in the PICC. It is important not to use scissors near the PICC. Nerve or tendon irritation or injury during PICC insertion. How to take care of your PICC Preventing problems You and any caregivers should wash your hands often with soap. Wash hands: ?Before touching the PICC line or the infusion device. ?Before changing a bandage (dressing). Flush the PICC as told by your health care provider. Let your health care provider know right away if the PICC is hard to flush or does not flush. Do not use force to flush the PICC. Do not use a syringe that is less than 10 mL to flush the PICC. Avoid blood pressure checks on the arm in which the PICC is placed. Never pull or tug on the PICC. Do not take the PICC out yourself. Only a trained clinical professional should remove the PICC. Use clean and sterile supplies only. Keep the supplies in a dry place. Do not reuse needles, syringes, or any other supplies. Doing that can lead to infection. Keep pets and children away from your PICC line. Check the PICC insertion site every day for signs of infection. Check for: ?Leakage. ?Redness, swelling, or pain. ?Fluid or blood. ?Warmth. ?Pus or a bad smell. PICC dressing care Keep your PICC bandage (dressing) clean and dry to prevent infection. Do not take baths, swim, or use a hot tub until your health care provider approves. Ask your healthcare provider if you can take showers. You may only be allowed to take sponge baths for bathing. When you are allowed to shower: ?Ask your health care provider to teach you how to wrap the PICC line. ?Cover the PICC line with clear plastic wrap and tape to keep it dry while showering. Follow instructions from your health care provider about how to take care of your insertion site and dressing. Make sure you: ?Wash your hands with soap and water before you change your bandage (dressing). If soap and water are not available, use hand medical cash poster. ?Change your dressing as told by your health care provider. ?Leave stitches (sutures), skin glue, or adhesive strips in place. These skin closures may need to stay in place for 2 weeks or longer. If adhesive strip edges start to loosen and curl up, you may trim the loose edges. Do not remove adhesive strips completely unless your health care provider tells you to do that. Change your PICC dressing if it becomes loose or wet. General instructions Carry your PICC identification card or wear a medical alert bracelet at all times. Keep the tube clamped at all times, unless it is being used. Carry a smooth-edge clamp with you at all times to place on the tube if it breaks. Do not use scissors or sharp objects near the tube. You may bend your arm and move it freely. If your PICC is near or at the bend of your elbow, avoid activity with repeated motion at the elbow. Avoid lifting heavy objects as told by your health care provider. Keep all follow-up visits as told by your health care provider. This is important. Disposal of supplies Throw away any syringes in a disposal container that is meant for sharp items (sharps container). You can buy a sharps container from a pharmacy, or you can make one by using an empty hard plastic bottle with a cover. Place any used dressings or infusion bags into a plastic bag. Throw that bag in the trash. Contact a health care provider if: You have pain in your arm, ear, face, or teeth. You have a fever or chills. You have redness, swelling, or pain around the insertion site. You have fluid or blood coming from the insertion site. Your insertion site feels warm to the touch. You have pus or a bad smell coming from the insertion site. Your skin feels hard and raised around the insertion site. Get help right away if: Your PICC is accidentally pulled all the way out. If this happens, cover the insertion site with a bandage or gauze dressing. Do not throw the PICC away. Your health care provider will need to check it. Your PICC was tugged or pulled and has partially come out. Do not push the PICC back in. You cannot flush the PICC, it is hard to flush, or the PICC leaks around the insertion site when itis flushed. You hear a flushing sound when the PICC is flushed. You feel your heart racing or skipping beats. There is a hole or tear in the PICC. You have swelling in the arm in which the PICC was inserted. You have a red streak going up your arm from where the PICC was inserted. Summary A peripherally inserted central catheter (PICC) is a long, thin, flexible tube (catheter) that is inserted into a vein in the upper arm. The PICC is inserted using a sterile technique by a specially trained nurse or physician. Only a trained clinical professional should remove it. Keep your PICC identification card with you at all times. Avoid blood pressure checks on the arm in which the PICC is placed. If cared for properly, a PICC can remain in place for several months. Having a PICC can also allow a person to go home from the hospital sooner. This information is not intended to replace advice given to you by your health care provider. Make sure you discuss any questions you have with your health care provider. Document Released: 09/26/2003 Document Revised: 03/04/2018 Document Reviewed: 04/24/2017 [employer] Patient Education 2020 [employer] Follow Up Care 04/06/2022 11:59:18 With:FELIPE REYES Address: [address] [place] [address] [id number] Business (1) When:04/09/2022 13:06:00 Comments:Follow-up with your primary care provider in 3 to 5 days. If symptoms worsen, do not improve, or new symptoms arise please report back to emergency department for further evaluation. Continue follow-up with your garage laborer for further evaluation of your dialysis shunt. [facility]12-16-2022 Progress note Author Ken Haas [facility] March 20, 2022 11:05am Note Date/Time March 20, 2022 8:55am [facility] [address] [place] [address] Vascular Surgery Progress Note Signed Patient: Danyelle Henry MR#: [id number] : 1940 Acct:[id number] Age/Sex: 81 / F Adm Date: 2 Loc: 4N Room: [address] [place] [address] Type: REG SDC Attending Dr: Ken Haas MD Copies to: ~ Date of Service: 03/20/2022 Subjective Subjective Interval history: Patient was brought to the hospital yesterday for left axillary prosthetic dialysis graft placement and was kept overnight postprocedure. She will run dialysis this morning through her IJ tunneled catheter. Plan was to discharge after this. Last evening she is reported to have had some bladder retention andFoley catheter was placed per nursing by order of the hospitalist. This morning, patient is resting comfortably in her bed with nursing at bedside. Sheis quite sleepy this morning. She states minimal pain to her left arm this morning. Exam Physical Exam Vital Signs: Temp Pulse Resp BP Pulse Ox O2 Del Method O2 Flow Rate 98.4 F 77 16 151/67 H 95 Room Air 10 03/20/22 07:51 03/20/22 07:51 03/20/22 07:51 03/20/22 07:51 03/20/22 07:51 03/20/22 07:51 03/19/22 14:05 Narrative: 81-year-old female, no acute distress. She is quite sleepy this morning with nursing at bedside obtaining vitals. Her left arm shows some edema, she has clean dry dressing in place. She is able to move her left hand and make a fist without issue. She falls asleep during conversation this morning. IJ tunneled catheter remains in place. Objective Labs CBC & Chem 7: 03/20/22 05:53 Other Labs: Laboratory Results - last 24 hr 12/15/22 12/15/22 12/16/22 10:10 14:07 05:53 PHA Creatinine Clear 6.95 Sodium 134 L Potassium 3.4 L 3.6 Chloride 102 Carbon Dioxide 24.0 Anion Gap 11.6 BUN 30 H Creatinine 4.71 H Est GFR ( Amer) 11 Est GFR (Non-Af Amer) 9 Glucose 79 POC Glucose 84 Calcium 9.1 Phosphorus 4.3 Albumin 2.9 L A&P - Vascular Assessment/Plan (1) ESRD (end stage renal disease): Code(s): N18.6 - End stage renal disease Status: Acute (2) S/P arteriovenous (AV) graft placement: This patient will receive hemodialysis here in the hospital this morning throughher IJ tunneled hemodialysis catheter. We will allow her arm to rest and heal and see her in a couple of weeks in the office. She did have some bladder retention last night and a Mccarthy catheter was placed. Catheter will need to be removed this morning and ensure patient ability to void prior to discharge. Code(s): Z95.828 - Presence of other vascular implants and grafts Status: Acute Documented By: Roxanne Mon APRN 03/20/22 0 853 Signed By: <Electronically signed by AYSHA Mon> 03/20/22 0855 <Electronically signed by MD Ken Haas> 03/20/22 [address] [facility] Work Phone: 1(503) 848-767612-16-2022 Consult note Author Eva Goodman [facility] March 20, 2022 10:26am Note Date/Time March 20, 2022 10:26am [facility] [address] [place] [address] Nephrology Consult Note Signed Patient: Danyelle Henry MR#: [id number] : 1940 Acct:[id number] Age/Sex: 81 / F Adm Date: 2 Loc: 4N Room: 6E7128-1 Type: REG SDC Attending Dr: Ken Haas MD Copies to: MD Ken Campbell MD Marcia E Braun, MD~ Providers Consult Date: 03/20/22 Requesting Provider: Ken Haas MD Primary Care Provider: Felipe Reyes MD HPI Reason for Consult: ESRD management History of Present Illness: This is a 81-year-old female with medical history of ESRD due to the diabetic kidney disease and hypertensive nephrosclerosis, anemia of renal disease, secondary hyperparathyroidism, dyslipidemia who was admitted for elective AV graft placement. Patient has a history of AV fistula in the past but failed to mature. She currently has a hemodialysis catheter and undergoing dialysis 3 times a week on Wednesday schedule at [place] dialysis unit. Patient had elective surgery done yesterday for AV graft. She was kept overnight for monitoring of the steal syndrome and graft function. Nephrology is consulted for ESRD management during her hospital stay. Patient was seen examined at bedside during hemodialysis she is feeling better just reported to have a surgical site. Review of Systems Review of Systems All other systems reviewed & are negative unless noted below or in HPI Review of systems: Cardiovascular: denies any chest pain, palpitation Pulmonary: denies any cough, hemoptysis Gastrointestinal: denies any nausea, vomiting, diarrhea Neurological :denies any headache, numbness, weakness Endocrine: denies any polyuria, polydipsia Dermatological: denies any itching or rash PMFSH Vaccinated for COVID-19?: Yes Medical History Arthritis Asthma Back pain scoliosis Coronary artery disease Dialysis patient Environmental allergies smoke, grass, trees ESRD (end stage renal disease) Fibroid tumor GERD (gastroesophageal reflux disease) History of kidney stones History of pneumonia Hyperlipidemia Hypothyroidism Irritable bowel disease Osteoporosis Surgical History H/O heart artery stent History of appendectomy History of cardiac catheterization 1 stent 2006 History of cholecystectomy History of hemorrhoidectomy History of hysterectomy History of tonsillectomy Status post right breast lumpectomy Family History Son Allergies Daughter Leukemia Daughter SIDS (sudden infant syndrome) Son Migraines Suicide Brother A-fib Father Hx of CABG Stroke Mother Heart problem Social History Smoking Status: Never smoker Substance Use Type: None Meds Medications & Allergies Allergies Penicillins Allergy (Verified 03/19/22 09:29) Hives Home Medications calcitriol 0.5 mcg capsule 0.25 mcg PO QAM kidneys 12/13/18 [History Confirmed 03/19/22] zolpidem 10 mg tablet 10 mg PO QHS PRN Insomnia 12/13/18 [History Confirmed 03/19/22] acetaminophen 325 mg tablet (Tylenol) 650 mg PO Q4H PRN Pain 03/05/22 [History Confirmed 03/19/22] aluminum-mag hydroxide-simethicone 400 mg-400 mg-40 mg/5 mL oral susp 30 ml PO QID PRN Indigestion 03/05/22 [History Confirmed 03/19/22] apixaban 2.5 mg tablet (Eliquis) 2.5 mg PO BID 03/05/22 [History Confirmed 03/19/22] docusate sodium 100 mg capsule (Colace) 100 mg PO BID PRN Constipation 03/05/22 [History Confirmed 03/19/22] levothyroxine 25 mcg tablet 25 mcg PO DAILY 03/05/22 [History Confirmed 03/19/22] lidocaine 4 % topical patch (Aspercreme (lidocaine)) 1 patch topical BID 03/05/22 [History Confirmed 03/19/22] nitroglycerin 0.4 mg sublingual tablet 0.4 mg sublingual Q5M PRN Chest Pain 03/05/22 [History Confirmed 03/19/22] oxycodone 10 mg tablet 10 mg PO HS PRN Pain 03/05/22 [History Confirmed 03/19/22] rosuvastatin 5 mg tablet 5 mg PO QHS 03/05/22 [History Confirmed 03/19/22] sevelamer carbonate 800 mg tablet 800 mg PO TID 03/05/22 [History Confirmed 03/19/22] Active Medications: Active Medications Acetaminophen (Acetaminophen 500 Mg Tablet) 500 mg PO Q6H ADAM Stop: 03/22/22 15:14 Last Admin: 03/20/22 04:31 Dose: 500 mg Acetaminophen (Acetaminophen 325 Mg Tablet) 650 mg PO Q4H PRN PRN Reason: Pain Stop: 03/19/23 16:08 Al Hydrox/Mg Hydrox/Simethicone (Mag Hydrox/Al Hydrox/Simeth 30 Ml Udc) 30 ml PO QID PRN PRN Reason: Indigestion Apixaban (Apixaban 2.5 Mg Tablet) 2.5 mg PO BID ADAM Stop: 03/20/23 08:59 Last Admin: 03/20/22 08:08 Dose: 2.5 mg Atorvastatin Calcium (Atorvastatin 10 Mg Tablet) 10 mg PO QHS ADAM Stop: 03/19/23 21:59 Last Admin: 03/20/22 00:30 Dose: Not Given Calcitriol (Calcitriol 0.25 Mcg Capsule) 0.25 mcg PO QAM ADAM Stop: 03/20/23 08:59 Last Admin: 03/20/22 08:08 Dose: 0.25 mcg Dextrose (Dextrose 20 % In Water 10 Gm/50 Ml Syringe) 10 gm IV-PUSH PRN PRN PRN Reason: Hypoglycemia Stop: 03/19/23 09:14 Docusate Sodium (Docusate 100 Mg Capsule) 100 mg PO BID PRN PRN Reason: Constipation Stop: 03/19/23 16:08 Heparin Sodium (Porcine) (Heparin 10,000 Unit/10 Ml Vial) 2,000 unit IV PRN PRN PRN Reason: Dialysis Stop: 03/20/23 08:37 Sodium Chloride (0.9% Sodium Chloride 500 Ml) 500 mls @ 20 mls/hr IV .Q24H ADAM Stop: 03/19/23 09:29 Last Infusion: 03/19/22 14:34 Dose: 20 mls/hr Sodium Chloride (0.9% Sodium Chloride 1,000 Ml) 1,000 mls @ 0 mls/hr MISCELLANE.Q0M PRN PRN Reason: Dialysis Stop: 03/20/23 08:37 Levothyroxine Sodium (Levothyroxine 25 Mcg Tablet) 25 mcg PO DAILY@0630 [facility] Stop: 03/20/23 06:29 Last Admin: 03/20/22 05:57 Dose: 25 mcg Lidocaine (Lidocaine 4% Adh..Patch) 1 patch TOPICAL BID [facility] Stop: 03/19/23 20:59 Last Admin: 03/20/22 08:08 Dose: Not Given Nitroglycerin (Nitroglycerin 0.4 Mg Tab.Subl) 0.4 mg SUBLINGUAL Q5M PRN PRN Reason: Chest Pain Stop: 03/19/23 16:08 Oxycodone HCl (Oxycodone Ir 5 Mg Tablet) 5 mg PO Q6HR PRN PRN Reason: Pain Scale 4 - 7 Last Admin: 03/20/22 04:31 Dose: 5 mg Oxycodone HCl (Oxycodone Ir 5 Mg Tablet) 10 mg PO HS PRN PRN Reason: Pain Paricalcitol (Paricalcitol 10 Mcg/2 Ml Vial) 3 mcg IV-PUSH MoWeFr@0900 [facility] Stop: 03/23/23 08:59 Sevelamer Carbonate (Sevelamer Carbonate 800 Mg Tablet) 800 mg PO TID ADAM Stop: 03/19/23 21:59 Last Admin: 03/20/22 08:08 Dose: 800 mg Sodium Chloride (Sodium Chloride 0.9 % 10 Ml Syringe) 0 ml IV-PUSH PRN PRN PRN Reason: Flush Stop: 03/19/23 09:14 Sodium Chloride (Sodium Chloride 0.9 % 10 Ml Syringe) 0 ml IV-PUSH PRN PRN PRN Reason: Flush Stop: 03/19/23 09:14 Sodium Chloride (Sodium Chloride 0.9 % 10 Ml Syringe) 0 ml IV-PUSH PRN PRN PRN Reason: Flush Stop: 03/19/23 13:42 Sodium Chloride (Sodium Chloride 0.9 % 10 Ml Syringe) 0 ml IV-PUSH PRN PRN PRN Reason: Flush Stop: 03/20/23 08:37 Zolpidem Tartrate (Zolpidem 10 Mg Tablet) 10 mg PO QHS PRN PRN Reason: Insomnia Stop: 09/15/22 16:08 Last Admin: 03/20/22 00:31 Dose: 10 mg Exam Physical Exam Vital Signs: Temp Pulse Resp BP Pulse Ox O2 Del Method O2 Flow Rate 98.4 F 77 16 151/67 H 95 Room Air 10 03/20/22 07:51 03/20/22 07:51 03/20/22 07:51 03/20/22 07:51 03/20/22 07:51 03/20/22 07:51 03/19/22 14:05 Narrative: General: Appears comfortable and not in distress Heart: S1-S2, no rub Lung: Bilateral air entry, no wheezing or crackles Abdomen: Soft, positive bowel sounds Extremities: No edema, no cyanosis Head: Atraumatic, normocephalic Ear: No gross hearing Deficit or external ear redness Eyes: No pallor or redness Neck: No JVD or visible mass Skin: No rashes or bruises OPERATING THEATRE TECHNICIAN: Awake,Alert, following simple command Musculoskeletal: No joint swelling or limitation of movement Psychiatric: Cooperative, normal mood and affect Results Labs CBC & Chem 7: 03/20/22 05:53 Labs: 03/20/22 05:53 BUN 30 H Creatinine 4.71 H Phosphorus 4.3 Albumin 2.9 L Radiology Impressions Impressions - last 24 hours: Any impression(s) listed above is documentation that was entered by the reading physician into a diagnostic report(s) for Danyelle Henry. I have reviewed the report(s) and am incorporating any findings in the treatment plan of this patient where applicable. A&P - Nephrology Assessment/Plan (1) S/P arteriovenous (AV) graft placement: Assessment/Problem Details: Patient is status post AV graft placement. She was kept overnight for monitoring of to check for steal syndrome and function graft. (2) ESRD (end stage renal disease): Assessment/Problem Details: She has a ESRD due to the diabetic kidney disease and hypertensive nephrosclerosis. (3) Anemia of renal disease: Assessment/Problem Details: Hemoglobin is within the goal. She receives Aranesp once weekly. (4) Secondary hyperparathyroidism: Assessment/Problem Details: She has a secondary hyperparathyroidism due to the ESRD. She takes oral calcitriol. Also she sevelamer for hyperphosphatemia. Plan * Hemodialysis today as ordered. * Will continue outpatient dose of the calcitriol and sevelamer. * Patient can be discharged from renal standpoint after dialysis. Documented By: Eva Goodman MD 03/20/22 1019 Signed By: <Electronically signed by Eva Goodman MD> 03/20/22 [address] [facility] Work Phone: 1(823) 577-959811-23-2022 NotePROCEDURE: XR KNEE LT 4V or >, XR FEMUR LT HISTORY: Pain ; left knee and femur pain following injury COMPARISON: None. FINDINGS: BONES:Subchondral cysts within the femoral head. No fracture, dislocation, or significant joint space narrowing. Mild narrowing of the medial compartment of the knee joint and small degenerative osteophytes along margins of patella. Prominent degenerative enthesophytes at quadriceps and patellar tendon insertions into the patella and patellar tendon insertion into the tibia. SOFT TISSUES:No visible soft tissue swelling. EFFUSION: Moderate size joint effusion. OTHER: Negative. IMPRESSION: 1. No acute bone abnormality. 2. Moderate size knee joint effusion. 3. Moderate degenerative changes of hip joint. Electronically authenticated by: YARA SWIFT Date: 2022-02-25 08:33[facility]11-23-2022 NotePROCEDURE: XR KNEE LT 4V or >, XR FEMUR LT HISTORY: Pain ; left knee and femur pain following injury COMPARISON: None. FINDINGS: BONES:Subchondral cysts within the femoral head. No fracture, dislocation, or significant joint space narrowing. Mild narrowing of the medial compartment of the knee joint and small degenerative osteophytes along margins of patella. Prominent degenerative enthesophytes at quadriceps and patellar tendon insertions into the patella and patellar tendon insertion into the tibia. SOFT TISSUES:No visible soft tissue swelling. EFFUSION: Moderate size joint effusion. OTHER: Negative. IMPRESSION: 1. No acute bone abnormality. 2. Moderate size knee joint effusion. 3. Moderate degenerative changes of hip joint. Electronically authenticated by: YARA SWIFT Date: 2022-02-25 08:33[facility]11-21-2022 Evaluation note* Encounter Date Diagnosis Assessment Notes Treatment Notes Treatment Clinical Notes Feb, End stage renal disease (ICD-10 - N18.6) Feb, Dependence on renal dialysis (ICD-10 - Z99.2) We discussed today's vein mapping results and Dr. Haas in room to further discuss recommendation for left arm AV graft placement for access. Procedure, risk, benefits were discussed at length and all other questions were addressed. We further discussed the importance of care and maintenance of the tunneled hemodialysis catheter and the importance of keeping the insertion site clean, dry, and covered to avoid access infection. Patient and family voiced understanding and denies any additional questions. I did clean the insertion site and place occlusive dressing once again. We will get her scheduled in the near future for left arm AV graft placement for dialysis access. Emerging Threats Other Evaluation + Plan note No data available for this section [facility] information available [facility] Work Phone: Evaluation note* Diagnosis Onset Date Resolution Status Anemia of renal disease acut e ESRD (end stage renal disease) acute S/P arteriovenous (AV) graft placement acute Secondary hyperparathyroidism acute [facility] Work Phone: Evaluation note* Diagnosis Onset Date Resolution Status Anemia of renal disease acut e ESRD (end stage renal disease) acute S/P arteriovenous (AV) graft placement acute Secondary hyperparathyroidism acute ESRD (end stage renal disease) acute [facility] Work Phone: Evaluation noteNo [employer] Other Evaluation note* Diagnosis Onset Date Resolution Status Symptomatic anemia acute [facility] Work Phone: Evaluation note* Diagnosis Onset Date Resolution Status Anemia acute Anemia of renal disease acut e Diarrhea acute ESRD (end stage renal disease) acute Hematochezia acute Hypertension acute Secondary hyperparathyroidism acute Symptomatic anemia acute Weight loss acute [facility] Work Phone: History and physical note Author Ken Haas [facility] April 22, 2022 9:11am Note Date/Time April 22, 2022 9 :11am [facility] [address] [place] [address] Vascular Surgery H&P Signed Patient: Danyelle Henry MR#: [id number] : 1940 Acct:[id number] Age/Sex: 81 / F Adm Date: 3 Loc: [place] Room: Type: [facility] Attending Dr: Ken Haas MD Copies to: MD Felipe Pascual MD~ Date of Service: 04/22/2022 HPI History of Present Illness Chief complaint: Need for dialysis access HPI: Ms. Henry is a 81 year old female who is currently receiving hemodialysis of the right internal jugular tunneled catheter. She has had 2 failed attempts at extremity based access. Her catheter was inadvertently removed yesterday and she comes for replacement PMFSH Vaccinated for COVID-19?: Yes Medical History Arthritis Asthma Back pain scoliosis Coronary artery disease Dialysis patient Environmental allergies smoke, grass, trees ESRD (end stage renal disease) Fibroid tumor GERD (gastroesophageal reflux disease) History of kidney stones History of pneumonia Hyperlipidemia Hypothyroidism Irritable bowel disease Osteoporosis Surgical History H/O heart artery stent History of appendectomy History of cardiac catheterization 1 stent 2006 History of cholecystectomy History of hemorrhoidectomy History of hysterectomy History of tonsillectomy Status post right breast lumpectomy Family History Son Allergies Daughter Leukemia Daughter SIDS (sudden syndrome) Son Migraines Suicide Brother A-fib Father Hx of CABG Stroke Mother Heart problem Social History Smoking Status: Former smoker Tobacco Type: cigarettes Substance Use Type: None Meds Medications and Allergies Allergies Penicillins Allergy (Verified 04/22/22 07:18) Hives Home Medications calcitriol 0.5 mcg capsule 0.25 mcg PO QAM kidneys 12/13/18 [History Confirmed 04/22/22] zolpidem 10 mg tablet 10 mg PO QHS PRN Insomnia 12/13/18 [History Confirmed 04/22/22] acetaminophen 325 mg tablet (Tylenol) 650 mg PO Q4H PRN Pain 03/05/22 [History Confirmed 04/22/22] apixaban 2.5 mg tablet (Eliquis) 2.5 mg PO BID 03/05/22 [History Confirmed 04/22/22] docusate sodium 100 mg capsule (Colace) 100 mg PO BID PRN Constipation 03/05/22 [History Confirmed 04/22/22] levothyroxine 25 mcg tablet 25 mcg PO DAILY 03/05/22 [History Confirmed 04/22/22] lidocaine 4 % topical patch (Aspercreme (lidocaine)) 1 patch topical BID 03/05/22 [History Confirmed 04/22/22] nitroglycerin 0.4 mg sublingual tablet 0.4 mg sublingual Q5M PRN Chest Pain 03/05/22 [History Confirmed 04/22/22] rosuvastatin 5 mg tablet 5 mg PO QHS 03/05/22 [History Confirmed 04/22/22] sevelamer carbonate 800 mg tablet 1,600 mg PO QAC 03/05/22 [History Confirmed 04/22/22] diclofenac sodium 1 % topical gel 1 g topical QID PRN Pain 04/22/22 [History Confirmed 04/22/22] Exam Physical Exam Vital Signs: Temp Pulse Resp BP Pulse Ox O2 Del Method O2 Flow Rate 97.9 F 65 14 110/49 L 99 Simple Mask 5 04/22/22 07:05 04/22/22 08:42 04/22/22 08:42 04/22/22 08:42 04/22/22 08:42 04/22/22 08:42 04/22/22 08:42 Narrative: Elderly female in no acute distress. She is surrounded by family members. Her right chest wall shows the old catheter exit site with no evidence of infection. By ultrasound examination the right internal jugular vein remains patent. Results Labs 04/22/22 06:55 04/22/22 06:55 Labs: Laboratory Results - last 24 hr 04/22/22 04/22/22 06:55 06:55 Corrected WBC 8.6 Uncorrected WBC Count 8.6 RBC 3.11 L Hgb 10.2 L Hct 31.2 L MCV 100.1 H MCH 32.6 MCHC 32.6 RDW 16.6 H Plt Count 310 MPV 8.2 Neut % (Auto) 75.1 Lymph % (Auto) 15.2 [place] % (Auto) 8.0 Eos % (Auto) 1.0 Baso % (Auto) 0.7 Nucleat RBC Rel Count 0.1 Neut # (Auto) 6.5 Lymph # (Auto) 1.3 [place] # (Auto) 0.7 Eos # (Auto) 0.1 Baso # (Auto) 0.1 PHA Creatinine Clear 6.19 Sodium 136 Potassium 3.3 L Chloride 101 Carbon Dioxide 18.5 L Anion Gap 19.8 H BUN 52 H Creatinine 5.03 H Est GFR ( Amer) 10 Est GFR (Non-Af Amer) 8 Glucose 78 Calcium 9.1 A&P - Vascular (1) ESRD (end stage renal disease): Plan: Dialysis catheter will be replaced today. Family and the patient standing afterthe procedure agree to proceed Code(s): N18.6 - End stage renal disease Status: Acute Documented By: Ken Haas MD 04/22/22 090 8 Signed By: <Electronically signed by MD Ken Haas> 04/22/22 0911 [facility] Work Phone: History and physical note Author Дмитрий Her [facility] July 24, 2022 4:30pm Note Date/Time July 24, 2022 4:2 8pm [facility] [address] [place] [address] Hospitalist H&P Signed with Addenda Patient: Danyelle Henry MR#: [id number] : 1940 Acct:[id number] Age/Sex: 81 / F Adm Date: 3 Loc: 3T Room: [address] [place] [address] Type: ADM INOo Attending Dr: Дмитрий Her MD Copies to: MD Felipe Romo MD~ ADDENDUM1 Correction?patient is on Eliquis. Not sure about indication Addendum Documented By: Дмитрий Her MD 07/24/22 1630 Addendum Signed By: <Electronically signed by Дмитрий Her MD> 07/24/22 1630 HPI DATE OF EXAMINATION: 07/24/22 HISTORY OF PRESENT ILLNESS: Patient is a very pleasant 81-year-old female, who presented to the Emergency Department today complaining of bloody stools. This has been ongoing for the last few days. She moves her bowels about 3 times a day. She sees small amounts of red blood mixed in with stool every time she goes. She has no abdominal pain or cramps. No nausea vomiting. Appetite has been intact. No fever chills weight loss. She has been tired. She does not take any blood thinners. She does not remember exactly when she had a colonoscopy, but it was a long timeago. No history of EGD. Past medical history End-stage renal disease on hemodialysis CAD status post PTCA and stent GERD Dyslipidemia Hypothyroidism IBD Osteoporosis Family history as noted 10 point review of systems negative except as noted Physical exam Patient appears comfortable, in no distress. Skin is normally colored, no icterus, cyanosis or edema noted. Capillary refill is normal. Joints are without any effusion. Abdomen is soft, benign, no rebound or rigidity. No organomegaly. Bowel sounds present. Rectal exam performed by ED staff. Heart regular, no gallop, rub or JVD. Lungs are clear to auscultation, no rales, ronchi or wheezes. HENT normal Neurological: Patient is awake. Cognition is normal. Cranial nerves are intact. Power is symmetric all extremities, with no focal motor deficit identified on a cursory exam. Psych: affect is normal. Labs imaging reviewed Assessment and plan 1. Rectal bleeding, anemia of subacute GI blood loss. Most likely secondary todiverticulosis. Abdomen is benign on exam at this time. I suspect the patient has underlying diverticulosis. We will transfuse her 2 units as ordered. Admit to the hospital overnight for observation. GI consult in AM. May benefit colonoscopy either as inpatient or outpatient. Continue treatment for other chronic medical comorbidities which include End-stage renal disease on hemodialysis CAD status post PTCA and stent GERD Dyslipidemia Hypothyroidism IBD Osteoporosis PMFSH Vaccinated for COVID-19?: Yes Medical History Arthritis Asthma Back pain scoliosis Coronary artery disease Dialysis patient Environmental allergies smoke, grass, trees ESRD (end stage renal disease) Fibroid tumor GERD (gastroesophageal reflux disease) History of kidney stones History of pneumonia Hyperlipidemia Hypothyroidism Irritable bowel disease Osteoporosis Surgical History H/O heart artery stent History of appendectomy History of cardiac catheterization 1 stent 2006 History of cholecystectomy History of hemorrhoidectomy History of hysterectomy History of tonsillectomy Status post right breast lumpectomy Family History Son Allergies Daughter Leukemia Daughter SIDS (sudden infant syndrome) Son Migraines Suicide Brother A-fib Father Hx of CABG Stroke Mother Heart problem Social History Smoking Status: Never smoker Tobacco Type: cigarettes Substance Use Type: None Meds Medications and Allergies Allergies Penicillins Allergy (Verified 07/24/22 13:25) Hives Home Medications calcitriol 0.5 mcg capsule 0.25 mcg PO QAM kidneys 12/13/18 [History Confirmed 07/24/22] zolpidem 10 mg tablet 10 mg PO QHS PRN Insomnia 12/13/18 [History Confirmed 04/22/22] acetaminophen 325 mg tablet (Tylenol) 650 mg PO Q4H PRN Pain 03/05/22 [History Confirmed 07/24/22] apixaban 2.5 mg tablet (Eliquis) 2.5 mg PO BID 03/05/22 [History Confirmed 07/24/22] docusate sodium 100 mg capsule (Colace) 100 mg PO BID PRN Constipation 03/05/22 [History Confirmed 04/22/22] levothyroxine 25 mcg tablet 25 mcg PO DAILY 03/05/22 [History Confirmed 07/24/22] lidocaine 4 % topical patch (Aspercreme (lidocaine)) 1 patch topical BID 03/05/22 [History Confirmed 04/22/22] nitroglycerin 0.4 mg sublingual tablet 0.4 mg sublingual Q5M PRN Chest Pain 03/05/22 [History Confirmed 07/24/22] rosuvastatin 5 mg tablet 5 mg PO QHS 03/05/22 [History Confirmed 04/22/22] sevelamer carbonate 800 mg tablet 1,600 mg PO QAC 03/05/22 [History Confirmed 07/24/22] diclofenac sodium 1 % topical gel 1 g topical QID PRN Pain 04/22/22 [History Confirmed 04/22/22] amlodipine 5 mg tablet 5 mg PO DAILY 07/24/22 [History Confirmed 07/24/22] apixaban 2.5 mg tablet (Eliquis) mg 07/24/22 [History] Exam Physical Exam Vital Signs: Temp Pulse Resp BP Pulse Ox O2 Del Method 97.6 F 75 18 141/64 H 99 Room Air 07/24/22 13:24 07/24/22 15:42 07/24/22 15:42 07/24/22 15:42 07/24/22 15:42 07/24/22 15:42 Results Lab Results Labs: Laboratory Last Values Corrected WBC 6.1 X10E3/uL (3.8-11.6) 07/24/22 14:38 Uncorrected WBC Count 6.1 x10E3/uL (3.8-11.6) 07/24/22 14:38 RBC 2.41 X10E6/uL (3.60-5.00) L 07/24/22 14:38 Hgb 7.7 g/dL (11.8-15.4) L 07/24/22 14:38 Hct 22.9 % (34.0-46.4) L 07/24/22 14:38 MCV 95.0 fl (80-100) 07/24/22 14:38 MCH 31.8 pg (24.7-34.3) 07/24/22 14:38 MCHC 33.5 g/dL (32.0-35.0) 07/24/22 14:38 RDW 15.3 % (11.9-15.3) 07/24/22 14:38 Plt Count 225 x10E3/uL (150-450) 07/24/22 14:38 MPV 8.8 fl (6.3-10.7) 07/24/22 14:38 Neut % (Auto) 70.8 % (.) 07/24/22 14:38 Lymph % (Auto) 17.3 % (.) 07/24/22 14:38 [place] % (Auto) 10.0 % (.) 07/24/22 14:38 Eos % (Auto) 1.4 % (.) 07/24/22 14:38 Baso % (Auto) 0.5 % (.) 07/24/22 14:38 Nucleat RBC Rel Count 0.1 /100 WBC (0-0.5) 07/24/22 14:38 Neut # (Auto) 4.3 x10E3/uL (1.8-7.7) 07/24/22 14:38 Lymph # (Auto) 1.1 x10E3/uL (1.00-4.8) 07/24/22 14:38 [place] # (Auto) 0.6 x10E3/uL (0.0-0.8) 07/24/22 14:38 Eos # (Auto) 0.1 x10E3/uL (0.0-0.45) 07/24/22 14:38 Baso # (Auto) 0.0 x10E3/uL (0.0-0.2) 07/24/22 14:38 Monocyte Dist Width 20.31 % (0.00-20.00) H 07/24/22 14:38 PT 12.4 Seconds (9.0-12.9) 07/24/22 14:38 INR 1.1 07/24/22 14:38 APTT 31.4 Seconds (25.1-36.5) 07/24/22 14:38 PHA Creatinine Clear 16.91 07/24/22 14:38 Sodium 133 mmol/L (136-145) L 07/24/22 14:38 Potassium 3.0 mmol/L (3.5-5.1) L 07/24/22 14:38 Chloride 96 mmol/L (98-107) L 07/24/22 14:38 Carbon Dioxide 30.1 mmol/L (21.0-31.0) 07/24/22 14:38 Anion Gap 9.9 mEq/L (6.0-15.0) 07/24/22 14:38 BUN 10 mg/dL (7-25) 07/24/22 14:38 Creatinine 1.91 mg/dL (0.60-1.20) H 07/24/22 14:38 Est GFR (CKD-EPI) 25.874 mL/Min 07/24/22 14:38 Glucose 103 mg/dL (70-100) H 07/24/22 14:38 Calcium 8.3 mg/dL (8.6-10.3) L 07/24/22 14:38 Total Bilirubin 0.7 mg/dl (0.3-1.0) 07/24/22 14:38 AST 16 U/L (13-39) 07/24/22 14:38 ALT 13 U/L (7-52) 07/24/22 14:38 Alkaline Phosphatase 114 U/L (34-104) H 07/24/22 14:38 Troponin I High Sens 46.9 pg/mL (0.0-15.0) H 07/24/22 14:38 Total Protein 5.7 gm/dL (6.4-8.9) L 07/24/22 14:38 Albumin 3.6 gm/dL (3.5-5.7) 07/24/22 14:38 Globulin 2.1 gm/dL 07/24/22 14:38 Albumin/Globulin Ratio 1.7 07/24/22 14:38 Blood Type O Negative 07/24/22 15:21 Blood Type Recheck O Negative 07/24/22 14:38 Antibody Screen Negative 07/24/22 15:21 Crossmatch (AHG) See Detail 07/24/22 15:21 Microbiology Results Micro: Microbiology - Results from entire visit 07/24/22 14:54 Stool Stool Occult Blood (TAMELA) - Final Documented By: Дмитрий Her MD 07/24/22 6657 Signed By: <Electronically signed by Дмитрий Her MD> 07/24/22 7125 [facility] Work Phone: History general Narrative - Reported* Type Description Date Medical History CAD Medical History Hypertension Medical History fibrocystic breast disease Medical History ASTHMA Medical History ARTHRITIS Medical History HYPERLIPIDEMIA Medical History KIDNEY STONES Medical History ANEMIA Medical History HYPERPARATHYROIDISM Medical History ACUTE RENAL FAILURE SYNDROME Medical History ESRD Surgical History cholecystectomy Surgical History hysterectomy Surgical History breast lump removed Surgical History LEFT arm AVF OR AVG 01/12/2019 Hospitalization History SEE ABOVE Emerging Threats Other History general Narrative - Reported* Type Description Date Medical History CAD Medical History Hypertension Medical History fibrocystic breast disease Medical History ASTHMA Medical History ARTHRITIS Medical History HYPERLIPIDEMIA Medical History KIDNEY STONES Medical History ANEMIA Medical History HYPERPARATHYROIDISM Medical History ACUTE RENAL FAILURE SYNDROME Medical History ESRD Surgical History cholecystectomy Surgical History hysterectomy Surgical History breast lump removed Surgical History LEFT arm AVF OR AVG 01/12/2019 Surgical History TRANSPOSITION LT ARM 2022 Hospitalization History SEE ABOVE Emerging Threats Other Progress note No data available for this section [facility] Summary Purpose Family History Relationship Condition Age at Onset Recorded Date/T marybel natural son Allergy Unknown daughter Leukemia Unknown daughter Sudden infant syndrome Unknown natural son Migraine headache Unknown brother Atrial fibrillation Unknown father Cerebrovascular accident (CVA) Unknown History of coronary artery bypass surgery Unknown Relationship Condition Age at Onset Recorded Date/T marybel natural son Allergy Unknown daughter Leukemia Unknown daughter Sudden infant syndrome Unknown natural son Migraine headache Unknown Suicide Unknown brother Atrial fibrillation Unknown father History of coronary artery bypass surgery Unknown Cerebrovascular accident (CVA) Unknown Not Specified Heart problem Unknown Advance Directives Advance Directive Response Recorded Date/ Time Advance Directives No August 05, 2018 12:57pm Advance Directive Response Recorded Date/ Time Advance Directives No August 05, 2018 11:57am Chief Complaint and Reason for Visit Chief Complaint abnormal labs Chief Complaint abnormal labs n18.6 z01.818 for hemo access Chief Complaint abnormal labs n18.6 z01.818 for hemo access ESRD Chief Complaint abnormal labs n18.6 z01.818 for hemo access ESRD ESRD Reason for Visit Anemia of renal dise ase ESRD (end stage renal disease) S/P arteriovenous (AV) graft placement Secondary hyperparathyroidism Chief Complaint n18.6 z01.818 for he mo access ESRD ESRD ESRD Reason for Visit Anemia of renal dise ase ESRD (end stage renal disease) S/P arteriovenous (AV) graft placement Secondary hyperparathyroidism ESRD (end stage renal disease) Chief Complaint rectal bleeding Reason for Visit Symptomatic anemia Chief Complaint rectal bleeding N18.6 Z99.2 for hemo access Reason for Visit Anemia Anemia of renal disease Diarrhea ESRD (end stage renal disease) Hematochezia Hypertension Secondary hyperparathyroidism Symptomatic anemia Weight loss Chief Complaint rectal bleeding N18.6 Z99.2 for hemo access ESRD Reason for Visit Anemia Anemia of renal disease Diarrhea ESRD (end stage renal disease) Hematochezia Hypertension Secondary hyperparathyroidism Symptomatic anemia Weight loss Chief Complaint ESRD N18.6 Z99.2 Chief Complaint ESRD N18.6 Z99.2 ESRD Additional Source Comments INFORMATION SOURCE (unrecogn ized section and content) DATE CREATED AUTHOR 09/28/2017 [facility] DATE CREATED AUTHOR AUTHOR'S ORGANIZ ATION 04/13/2022 [facility] DATE CREATED AUTHOR AUTHOR'S ORGANIZ ATION 08/12/2022 [facility] DATE CREATED AUTHOR AUTHOR'S ORGANIZ ATION 12/04/2022 [facility] Care Teams (unrecognized sec tion and content) Team Status: Active Member Role Status Dates Felipe Reyes MD Primary Care Provider Active Team Status: Inactive Member Role Status Dates Felipe Reyes MD Primary Care Provider Active Ken Haas MD Attending Provider Active Team Status: Inactive Member Role Status Dates Felipe Reyes MD Primary Care Provider Active Ivan Yancey PA-C Emergency Provider Active Дмитрий Her MD Admit Provider Active Uma Zhang MD Other Provider Active Ambar Galvan MD Other Provider Active Aj Ragland MD Attending Provider Active Team Status: Active Member Role Status Dates Felipe Reyes MD Primary Care Provider Active Ivan Yancey PA-C Emergency Provider Active Дмитрий Her MD Admit Provider, Attending Provider Active Uma Zhang MD Other Provider Active Ambar Galvan MD Other Provider Active Team Status: Inactive Member Role Status Dates Felipe Reyes MD Primary Care Provider Active Delgado Eagle DO Emergency Provider Active Team Status: Inactive Member Role Status Dates Felipe Reeys MD Primary Care Provider Active Ken Haas MD Attending Provider Active Eva Goodman MD Other Provider Active Goals (unrecognized section and content) Goals may be documented in a n alternate sectionGoals may be documented in an alternate sectionGoals may be documented in an alternate section No data available for this sectionNo InformationNo InformationNo InformationNo InformationNo InformationNo InformationNo InformationGoals may be documented in an alternate sectionNo InformationNo InformationNo Information REASON FOR VISIT (unrecogniz ed section and content) GO OVER VEIN MAPPING2 week f /u AV graft placement, Follow-up after left arm graft placementProblems4 MONTH FOLLOW UP; VEIN MAPPING RIGHT ARM 9A, Need for dialysis accessClinicalF/U RIGHT ARM ANTECUBITAL AVF CREATION, Follow-up right AV fistula6 WK FOLLOW UP; GFS RIGHT ARM 10A4 week follow up; Fistulogram, Follow-up after transposition right basilic fistula4 WK FOLLOW UP; DIALYSIS, Follow-up right AV fistula4 WK FOLLOW UP; MAY D/C HD CATHETER, Follow-up right AV fistula FOR RECORDS PERTAINING TO PATIENTS WHO ARE OR HAVE BEEN ENROLLED IN A CHEMICAL DEPENDENCY/SUBSTANCEABUSE PROGRAM, SOME INFORMATION MAY BE OMITTED. This clinical summary was aggregated from multiple sources. Caution should be exercised in using it in the provision of clinical care. This summary normalizes information from multiple sources, and as a consequence, information in this document may materially change the coding, format and clinical context of patient data. In addition, data may be omitted in some cases. CLINICAL DECISIONS SHOULD BE BASED ON THE PRIMARY CLINICAL RECORDS. [employer] [facility]. provides no warranty or guarantee of the accuracy or completeness of information in this document.
[2023-04-16 13:06] LABS: Hemoglobin 9.5 g/dL (12.0-16.0)
== END 2023-04-16 12:56 | disposition home or self-care (01) ==
LOC: LAB 12:58
PROVIDERS: PCP Family Medicine; Visit Provider Internal Medicine Nephrology
DX: D63.1 Anemia in chronic kidney disease (principal)
CPT/HCPCS: 36415; 85018